=== PATIENT | male | born 1945 | race Caucasian/White ===

== ENCOUNTER → 2020-07-06 15:18 | Outpatient (BNVA) | payer MEDICARE, SELFPAY | PROVIDERS: Visit Provider Nurse Practitioner | DX: K59.04 Chronic idiopathic constipation (principal); K75.81 Nonalcoholic steatohepatitis (NASH); K80.20 Calculus of gallbladder without cholecystitis without obstruction; K21.9 Gastro-esophageal reflux disease without esophagitis; L98.9 Disorder of the skin and subcutaneous tissue, unspecified; Z79.899 Other long term (current) drug therapy; Z80.0 Family history of malignant neoplasm of digestive organs | CPT/HCPCS: 99214 ==

== ENCOUNTER 2020-07-08 09:27 | Outpatient (REF) | payer MEDICARE, SELFPAY ==
[2020-07-08 10:22] LABS: Alanine Aminotransferase 11 U/L (0-40); Albumin Level 4.1 g/dL (3.5-5.0); Alkaline Phosphatase 95 U/L (39-117); Aspartate Amino Transferase 10 U/L (5-37); Bilirubin Direct 0.3 mg/dL (0.0-0.5); Bilirubin Total 0.7 mg/dL (0.0-1.0); Total Protein 7.9 g/dL (6.5-8.0)
[2020-07-12 11:37] LABS: Alpha Fetoprotein 2.8 ng/mL (<6.1)
== END 2020-07-08 09:28 | disposition home or self-care (01) ==
LOC: HO.LAB 09:27
PROVIDERS: Visit Provider Nurse Practitioner
DX: K75.81 Nonalcoholic steatohepatitis (NASH) (principal)
CPT/HCPCS: 80076; 82105

== ENCOUNTER 2020-07-19 12:23 | Outpatient (REF) | payer MEDICARE, SELFPAY ==
--- NOTE | 2020-07-19 12:31 | US_ITS ---
EXAMINATION: US ABDOMEN LIMITED CLINICAL INFORMATION: Nonalcoholic steatohepatitis. COMPARISON: Ultrasound abdomen complete dated 07/23/2019 and 02/19/2018. CT abdomen and pelvis with intravenous contrast only dated 10/28/2015. TECHNIQUE: Real-time imaging of the right upper quadrant abdominal viscera. FINDINGS: PANCREAS: The head and the body of the pancreas has homogeneous echotexture. The tail is obscured by overlying gas. LIVER: There is echogenic calcification along the right hepatic lobe at the dome measuring 1.2 x 0.8 x 1.3 cm. It was not well appreciated on previous study. The liver is normal in size. The liver contour is normal. Parenchymal echogenicity is coarse and echogenic. There is no intrahepatic biliary duct dilatation seen. GALLBLADDER: There are echogenic gallstones and gravel with mild wall thickening. The gallbladder is physiologically distended without evidence of polyps, wall thickening or pericholecystic fluid. Suspect mild adenomyomatosis along the inner gallbladder wall. COMMON BILE DUCT: Normal in caliber measuring 1.0 cm in diameter. RIGHT KIDNEY: There is anechoic cyst in mid/lower pole measuring 1.4 x 1.4 x 1.3 cm. No hydronephrosis or echogenic renal calculi seen. There is no hydronephrosis or caliectasis. The kidney measures 15.5 cm in maximum dimension. FREE FLUID: None. IMPRESSION: Coarse echogenic liver with focal calcification along the right hepatic lobe at the dome, new since the previous study. Echogenic gravel and small stones in gallbladder with mild wall thickening. Suspect adenomyomatosis of the gallbladder. Small anechoic cyst mid/lower pole right kidney measuring 1.4 cm.
== END 2020-07-19 12:24 | disposition home or self-care (01) ==
LOC: HO.US 12:23
PROVIDERS: Visit Provider Nurse Practitioner
DX: K75.81 Nonalcoholic steatohepatitis (NASH) (principal); G47.33 Obstructive sleep apnea (adult) (pediatric); J30.9 Allergic rhinitis, unspecified; R91.1 Solitary pulmonary nodule; Z99.89 Dependence on other enabling machines and devices
CPT/HCPCS: 76705; 99213

== ENCOUNTER 2020-07-28 13:38 | Outpatient (REF) | payer MEDICARE, SELFPAY ==
--- NOTE | 2020-07-28 13:30 | CT_ITS ---
EXAMINATION: CT CHEST WITHOUT CONTRAST CLINICAL INFORMATION: Pulmonary nodule. COMPARISON: None TECHNIQUE: Multidetector volumetric CT imaging of the chest was done. Axial MIP volume rendering provided. Sagittal and coronal reformatted images were obtained. This CT examination was performed using dose optimization techniques as appropriate, variously including the following: *Automated exposure control. *Adjustment of mA and/or kV according to patient size (this includes techniques or standardized protocols for targeted exams where dose is matched to indication/reason for exam; i.e. extremities or head). *Use of iterative reconstruction technique. DLP: 241 mGy-cm FINDINGS: SERVICE SECRETARY: Well-inflated lungs. LUNGS: Previously visualized largest 1 cm nodule left lung base is not visualized at this time and likely resolved. Previously seen right middle lobe nodule has resolved. A second nodule since measuring 6 cm on axial image 354/7 is stable. There are small calcified granulomas in left lower lobe on axial image 354 and 348/7, triangular-shaped 5 mm nodule at the left lung apex image 128/7, previously measured 4 mm, 3 mm nodule right upper lobe image 187/7, 2 nodule perivascular image 177/7 right upper lobe, 4 mm peribronchiolar nodule right upper lobe image 242/7 is new. There is tree-in-bud appearance and focal terminal bronchiolar dilation in the right upper lobe inferior segment, new since previous study, likely related to small airway disease. There is extensive lower lobe honeycombing and traction bronchiectasis likely representing chronic airway disease. Similar findings are seen in the dependent portion of the lingula and right middle lobe lateral segment. MEDIASTINUM: The thyroid lobes are symmetrical. The central trachea and the bronchi are widely patent. There are small pretracheal lymph nodes. A prominent subcarinal lymph node measures 1.5 x 1.1 cm. There are coronary artery calcifications present. No pericardial effusion seen. PLEURA: There is no pleural effusion. No pleural mass or thickening. AXILLA: No lymphadenopathy. UPPER ABDOMEN: Visualized liver, spleen, pancreas and bilateral adrenal glands are unremarkable. OSSEOUS STRUCTURES: There is moderate spondylosis throughout the dorsal spine. No lytic process seen. CT/CT chest wo con IMPRESSION: 1. Previously seen overlying pleural-based nodule in the left lower lobe is normal visualized. Chronic bibasilar parenchymal scarring and traction bronchiectasis are stable. Similar findings to a lesser extent involving the dependent portion of right middle lobe and lingula are stable. 2. There is tree-in-bud appearance and focal terminal bronchiolar dilatation, appears slightly progressed. 3. There are several pulmonary nodules some of which were present before and some are new. Especially, the 4 mm peribronchiolar nodule in the right upper lobe is new. 4. There is borderline subcarinal lymph node, new.
== END 2020-07-28 13:39 | disposition home or self-care (01) ==
LOC: HO.CT 13:38
PROVIDERS: Visit Provider Internal Medicine
DX: R91.1 Solitary pulmonary nodule (principal)
CPT/HCPCS: 71250

== ENCOUNTER 2020-08-02 15:00 | Outpatient (REF) | payer MEDICARE, SELFPAY ==
--- NOTE | 2020-08-02 11:06 | PFT_ITS ---
FLOWS: FEV1 84% of predicted at 2.30 L. FVC 75% of predicted at 2.85 L. FEV1 to FVC ratio of 0.81. No bronchodilator response. LUNG VOLUMES: Total lung capacity 79% of predicted at 5.12 L. Residual volume 88% of predicted at 2.11 L. Slow vital capacity 74% of predicted at 3.01 L. Expiratory reserve volume 33% of predicted at 0.34 L. Diffusion capacity is mildly decreased, diffusion capacity corrects to normal after adjustment for alveolar ventilation. IMPRESSION: Mild restrictive ventilatory defect with no bronchodilator response. Decreased expiratory reserve volume suggests extrathoracic restriction likely secondary to abdominal obesity. MD WOLFGANG Carlos/MODL / [id number]
== END 2020-08-02 15:01 | disposition home or self-care (01) ==
LOC: HO.RESP 15:00
PROVIDERS: Visit Provider Internal Medicine
DX: J44.9 Chronic obstructive pulmonary disease, unspecified (principal)
CPT/HCPCS: 94060; 94727; 94729

== ENCOUNTER → 2020-08-24 07:16 | Outpatient (REF) | payer MEDICARE, SELFPAY ==
--- NOTE | 2020-08-24 07:30 | CA_ITS ---
Transthoracic Echocardiogram Patient (Last, First, Middle): Junior Reyes G Gender: Male Date of : 1945 Age: 75 Procedure Date: 08/24/2020 Procedure Type: Transthoracic Echocardiogram Location: OP Height: 167.64 cm Weight: 98.88 kg BSA: 2.07 m2 Heart Rate: bpm BP: 140 / 72 mmHg Can Pusher: PATRICA Wang MD: Gerardo Smith MD Canary Breeder: Hector Sy MD Symptoms: HTN,OBESITY, PREOP, Study Quality: Fair ECG Rhythm: Sinus Conclusions: - 1. Normal LV systolic function with mild LVH with impaired relaxation filling pattern 2. Mildly dilated left atrium 3. Trace to mild aortic regurgitation 4. Normal RV systolic pressure 5. Mildly dilated ascending aorta at 4.3 cm 6. No pericardial effusion Findings Left Ventricle Normal left ventricular size and systolic function. There is mildly increased left ventricular wall thickness. The visually estimated ejection fraction is between 60-65%. Spectral Doppler is indicative of an impaired relaxation filling pattern. E/E prime ratio is between 8 and 15 consistent with indeterminate filling pressures. Right Ventricle Normal right ventricular cavity size and systolic function. Atria The left atrium is mildly dilated. Interatrial shunt cannot be excluded. The right atrium is normal in size. Aortic Valve Normal aortic valve structure and function. There is no aortic valve stenosis. There is mild aortic valve regurgitation. Mitral Valve Normal mitral valve structure and function. There is no mitral valve regurgitation. There is no mitral valve stenosis. Pulmonic Valve The pulmonic valve is likely normal. There is trace pulmonic valve regurgitation. Tricuspid Valve Normal tricuspid valve structure. There is trace tricuspid valve regurgitation. The right ventricular systolic pressure is normal. The right ventricular systolic pressure is 27 mmHg. Normal right atrial pressure. There is no evidence of pulmonary hypertension. Great Vessels The pulmonary artery was not well visualized. There is mild dilatation of the ascending aorta measuring 4.30 cm. Venous The inferior vena cava is normal in size and collapses greater than 50% with inspiration. Pericardium/Pleural There is no evidence of pericardial effusion. Prior Study Comparison No prior study available for comparison. Measurements 2D Linear Measurements RVIDd: 3.87 RVIDd Index: 1.87 IVSd: 1.26 0.6-0.9/0.6-1.0 cm LVIDd: 5.24 3.9-5.3/4.2-5.9 cm LVIDd Index: 2.53 2.4-3.2/2.2-3.1 cm/m2 LVIDs: 3.59 2.0-3.6 cm LVPWd: 1.19 0.7-1.1 cm Ao Root: 4.40 2.1-3.5 cm LA Diam: 4.00 2.7-3.8/3.0-4.0 cm LAIDs Index: 1.93 1.5-2.3 cm/m2 LV Mass: 323.31 67-162/88-224 g LV Mass Index: 156.19 43-95/49-115 g/m2 LVOT Diam: 2.20 3.0+(-)1.3 cm 2D Systolic Function EF 4C: 59.00 >55% EF 2C: 64.00 >55% EF BiP: 61.30 >55% Mitral Valve MV Pk E: 0.57 MV PK A: 0.83 MV Decel Time: 318.00 E/A: 0.70 E'Lateral: 6.64 E'Medial: 4.24 E/E' Med: 13.40 E/E' Lat: 8.60 Aortic Valve AoV Pk Luciano: 1.39 AoV Mn Luciano: 1.07 AoV VTI: 0.29 AoV Pk Grad: 8.00 Aov Mn Grad: 5.00 BINA Cont.VTI: 2.97 LVOT LVOT Pk Luciano: 1.20 LVOT Mn Luciano: 0.71 LVOT VTI: 0.23 LVOT Pk Grad: 6.00 LVOT Mn Grad: 2.00 LVOT Diam: 2.20 LVOT Area: 3.80 Diastolic Function MV Pk E: 0.57 MV Pk A: 0.83 E/A: 0.70 E'Medial: 4.24 E/E' Med: 13.40 E' Laterial: 6.64 E/E' Lat: 8.60 Tricuspid Valve TR Pk Luciano: 2.43 TR Pk Grad: 24.00 RA Press: 3.00 RVSP: 27.00 Great Vessels Aorta Ao Root-2D: 4.40 2.0-3.7 cm Ao Asc: 4.30 2.1-3.4 cm Ao Arch: 3.20 Updated in Other Vendor System with Status of Final Hector Sy MD electronically signed on 08/24/2020 1:06:02 PM with status of Final
== END ==
LOC: HO.CARD 07:16
DX: I10 Essential (primary) hypertension (principal); E66.9 Obesity, unspecified; J44.9 Chronic obstructive pulmonary disease, unspecified
CPT/HCPCS: 93306

== ENCOUNTER 2020-08-25 00:54 | Emergency (ER) | payer MEDICARE, SELFPAY ==
[2020-08-25 01:05] VITALS: BP 167/90; PULSE 70; RESP 16; TEMP 36.8; O2SAT 97; BMI 34.9
--- NOTE | 2020-08-25 01:11 | XR_ITS ---
EXAMINATION: XR CHEST CLINICAL INFORMATION: Chest pain COMPARISON: 02/26/2017 TECHNIQUE: Frontal view of the chest was obtained. FINDINGS: The lungs are well expanded. There is no focal consolidation, edema, or effusion. Bronchial wall thickening noted. No pneumothorax. The cardiomediastinal silhouette is within normal limits. No acute osseous abnormality. Degenerative changes at the shoulders. XR/XR chest 1V IMPRESSION: No consolidation. Bronchial wall thickening can be seen with a small airways process such as asthma or atypical/viral infection.
--- NOTE | 2020-08-25 01:11 | ECG_ITS ---
Test Reason : PALPITATIONS Blood Pressure : / mmHG Vent. Rate : 062 BPM Atrial Rate : 062 BPM P-R Int : 222 ms QRS Dur : 118 ms QT Int : 468 ms P-R-T Axes : 039 -06 007 degrees QTc Int : 475 ms Sinus rhythm with 1st degree A-V block Non-specific intra-ventricular conduction delay Borderline ECG When compared with ECG of 09-SEP-2018 21:06, No significant change was found Heart rate has increased Referred By: Thai Nava Electronically Signed By:THELMA VARELA MD
--- NOTE | 2020-08-25 01:24 | ED.ARRPALP ---
HPI - Arrhythmia/Palpitations General Chief Complaint: Arrhythmia/Palpitations Stated Complaint: A-fib/Palpitations Time Seen by Provider: 08/25/20 01:01 Source: patient Mode of arrival: ambulatory History of Present Illness HPI narrative: 75-year-old male states approximately 7 hours of intermittent rapid heart rate states about 7 hours ago had slight pressure in his chest however that has relieved. The dizziness denies syncope or diaphoresis. Patient states forget to take his metoprolol or amiodarone in the morning and when remembered he noticed his heart rate was elevated. Patient then proceeded to take his medications about 7 hours ago in which feels much better now he is emergency department MD complaint: heart racing Onset (ago): hour(s) (Seven) Severity: mild Related Data Home Medications Medication Instructions Recorded Confirmed amiodarone 200 mg tablet mg PO DAILY tab 06/28/20 07/06/20 amlodipine 5 mg tablet 5 mg PO DAILY 06/28/20 07/06/20 chlorthalidone 25 mg tablet 12.5 mg PO DAILY tab 06/28/20 07/06/20 fluticasone 250 mcg-salmeterol 50 1 inh INHALATION BID ea 06/28/20 07/06/20 mcg/dose blistr powdr for inhalation metoprolol succinate 25 mg 25 mg PO DAILY 06/28/20 07/06/20 tablet,extended release 24 hr pantoprazole 40 mg tablet,delayed mg PO BID tab 06/28/20 07/06/20 release rosuvastatin 5 mg tablet 5 mg PO DAILY 06/28/20 07/06/20 sildenafil 100 mg tablet mg PO PRN 06/28/20 07/06/20 tamsulosin 0.4 mg capsule 0.4 mg PO DAILY 06/28/20 07/06/20 trazodone 50 mg tablet 50 mg PO BEDTIME 06/28/20 07/06/20 loratadine 10 mg tablet 10 mg PO DAILY 07/06/20 07/06/20 albuterol sulfate 2.5 mg INHALATION Q4-6H PRN 07/19/20 aspirin 81 mg tablet,delayed 81 mg PO DAILY 07/19/20 release Previous Rx's Medication Instructions Recorded bisacodyl 5 mg tablet,delayed 10 mg PO BEDTIME 2 Days #4 tab 07/06/20 release docusate calcium 240 mg capsule 240 mg PO BEDTIME #60 cap 07/06/20 montelukast 10 mg tablet 10 mg PO DAILY #30 tab 08/24/20 azithromycin 500 mg PO DAILY 3 Days #3 tab 08/25/20 Allergies Allergy/AdvReac Type Severity Reaction Status Date / Time cefepime Allergy Intermediate RASH/BLISTERS, Verified 08/25/20 01:05 rash metronidazole [From FLAGYL] Allergy Intermediate Rash Verified 08/25/20 01:05 Review of Systems Review of Systems: Constitutional : No Weight loss, No Fever, No Chills, No Night Sweats, No Fatigue, No Malaise ENT/Mouth : No Hearing loss, No Ear Pain, No Nasal Congestion, No Sinus Pain, No Hoarseness, No sore throat, No Rhinorrhea, No Swallowing Difficulty Eyes: No Eye Pain, No Swelling, No Redness, No Foreign Body, No Discharge, No Vision Changes Cardiovascular : Positive Chest Pain, No SOB, No Dyspnea on Exertion, No Orthopnea, No Edema, positive Palpitations Respiratory : No Cough, No Sputum, No Wheezing, No Smoke Exposure, No Dyspnea Gastrointestinal : No Nausea, No Vomiting, No Diarrhea, No Constipation, No abdominal Pain, No Hematochezia, No Melena Genitourinary : no irregular bleeding, No Dysuria, No Urinary Frequency, No Hematuria, No Urinary Incontinence, No Urgency, No Flank Pain, No Urinary Flow Changes, No Hesitancy Musculoskeletal : No joint pain, No Myalgias, No Joint Swelling Skin : No Skin Lesions, No rash Neuro : No Weakness, No Numbness, No Paresthesias, No Loss of Consciousness, No Dizziness, No Headache Psych : No Anxiety/Panic, No Depression, No SI/HI/AH/VH, No Social Issues, Heme/Lymph: No Bruising, No Bleeding,No Lymphadenopathy Endocrine : No Polyuria, No Polydipsia, No Temperature Intolerance [facility] Past Medical History Medical History Allergic rhinitis COPD (chronic obstructive pulmonary disease) ABBY on CPAP Pneumonia Pulmonary nodule Surgical History H/O colonoscopy H/O tympanostomy History of esophagogastroduodenoscopy (EGD) History of parathyroidectomy S/P skin biopsy Family History Family History Father DONNA (non-insulin dependent diabetes mellitus in young) Prostate cancer HTN (hypertension), benign Mother Bone cancer Breast cancer Maternal Grandmother CAD (coronary artery disease) Brother Rectal cancer Social History Social History Alcohol intake: never Smoking Status: Former smoker Years Smoked: QUIT 20 YEARS AGO Advance Directives: No Physical Exam Vital Signs: Vital Signs: Last Vital Signs Temp 98.6 F 08/25/20 02:00 Pulse 60 08/25/20 02:00 Resp 18 08/25/20 02:00 BP 137/73 08/25/20 02:00 Pulse Ox 96 08/25/20 02:00 Body Mass Index 34.9 Vital signs reviewed Appearance: Alert. Oriented X3. No acute distress. Eyes: Pupils equal, round and reactive to light. ENT: Pharynx normal. Neck: Normal inspection. Neck supple. No lymph nodes noted. No crepitus CVS: Normal heart rate and rhythm. Pulses normal. Normal S1 and S2 Respiratory: No respiratory distress. Breath sounds normal. No Wheezing. No rales Abdomen: Soft and nontender. No rigidity. No distention. good BS x4 Skin: Skin warm and dry. Normal skin color. Normal skin turgor. Extremities: No lower extremity edema. Neurovascular intact to all extremities. No Lacerations. No Rash Neuro: Oriented X 3. No motor deficit. No sensory deficit. Moving all extermities. No slurred speech. Course Course Course Narrative: Re-evaluation on patient at 0 3 a.m. patient much improved no palpitations epic [facility] specialists without any ectopy MDM - Arrhythmia/Palpitations MDM Narrative Medical decision making narrative: 75-year-old male that complaint of tachycardia. Patient did miss a dose of his medications and he later in the day which upon arrival to emergency department noted his tachycardia resolved. X-ray shows mild inflammation with a slightly elevated white count will start on bronchitis medication patient aware of reasons to return to the emergency department Differential Diagnosis Differential diagnosis: Likely palpitations, artial fibrillation, artial flutter and supraventricular tachycardia Medical Records Attestation: I reviewed the patient's medical records. Medical records narrative: History shows that patient is on amiodarone 200 mg seen by summer counselor Dr. khiak Lab Data Attestation: I reviewed the patient's lab results. Result diagrams: 08/25/20 01:15 08/25/20 01:15 Labs: Lab Results 08/25/20 08/25/20 08/25/20 Range/Units 01:15 01:15 01:15 WBC 16.5 H (4.8-10.8) X10*3/uL RBC 5.25 (4.60-5.80) X10*6/uL Hgb 16.2 (14.0-18.0) g/dl Hct 48.9 (42-52) % MCV 93.1 (80-98) fL MCH 30.9 (27.0-33.0) pg MCHC 33.1 (31.0-36.0) g/dl RDW 13.4 (11.0-16.0) % Plt Count 312 (160-400) X10*3/uL MPV 9.8 (9.4-12.4) fL Immature Gran % (Auto) 0.2 (0.0-0.4) % Neut % (Auto) 75.5 H (45-73) % Lymph % (Auto) 14.6 L (20-40) % Citrus % (Auto) 8.5 (2-11) % Eos % (Auto) 1.0 (0-4) % Baso % (Auto) 0.2 (0-2) % Lymph # (Auto) 2.4 (1.2-4.9) X10*3/uL Citrus # (Auto) 1.4 H (0.1-1.2) X10*3/uL Eos # (Auto) 0.2 (0.0-0.4) X10*3/uL Baso # (Auto) 0.0 (0.0-0.2) X10*3/uL Abs Immat Gran (auto) 0.04 H (0.00-0.03) X10*3/uL Absolute Neuts (auto) 12.4 H (2.0-8.3) X10*3/uL Absolute Nucleated RBC 0.000 (0.0-0.012) X10*3/uL Nucleated RBC % (auto) 0.0 (0.0-0.2) /100WBC Sodium 139 (135-145) mmol/L Potassium 4.2 (3.3-5.1) mmol/l Chloride 101 (96-108) mmol/L Carbon Dioxide 27 (22-29) mmol/L Anion Gap 15 (12-20) BUN 16 (9-16) mg/dL Creatinine 1.00 (0.5-1.4) mg/dL Estim Creat Clear Calc 73.4 Estimated GFR > 60 Random Glucose 129 H (60-115) mg/dL Calcium 9.2 (8.4-10.2) mg/dL Magnesium 1.8 (1.6-2.6) mg/dL Troponin I High Sens 3.5 (<3.5-35.0) ng/L ECG Data Attestation: I personally reviewed and interpreted this ECG as follows: Interpretation: 62 beats per minute. Normal sinus rhythm. First-degree AV block. Rights sided axis no ST-T changes Discharge Plan Discharge Clinical Impression: Tachycardia, Bronchitis Patient Disposition: Home, Self-Care Instructions: Acute Bronchitis (ED) Additional Instructions: Thank you for visiting the emergency department today. If your symptoms worsen or do not resolve completely please return to the emergency department immediately or call 911. If you have any questions please call your primary care physician Prescriptions: New azithromycin 500 mg tablet 500 mg PO DAILY 3 Days Qty: 3 RF: 0 No Action montelukast 10 mg tablet 10 mg PO DAILY Qty: 30 RF: 3 loratadine [Claritin] 10 mg tablet 10 mg PO DAILY RF: 0 docusate calcium 240 mg capsule 240 mg PO BEDTIME Qty: 60 RF: 3 bisacodyl [Dulcolax (bisacodyl)] 5 mg tablet,delayed release (DR/EC) 10 mg PO BEDTIME 2 Days Qty: 4 RF: 3 metoprolol succinate 25 mg tablet extended release 24 hr 25 mg PO DAILY RF: 0 chlorthalidone 25 mg tablet 12.5 mg PO DAILY RF: 0 amlodipine 5 mg tablet 5 mg PO DAILY RF: 0 rosuvastatin 5 mg tablet 5 mg PO DAILY RF: 0 pantoprazole 40 mg tablet,delayed release (DR/EC) PO BID RF: 0 sildenafil 100 mg tablet PO PRN (Reason: sexual activity) RF: 0 fluticasone propion-salmeterol 250-50 mcg/dose blister with device 1 inh inhalation BID RF: 0 tamsulosin 0.4 mg capsule 0.4 mg PO DAILY RF: 0 trazodone 50 mg tablet 50 mg PO BEDTIME RF: 0 amiodarone 200 mg tablet PO DAILY RF: 0 aspirin 81 mg tablet,delayed release (DR/EC) 81 mg PO DAILY RF: 0 albuterol sulfate 2.5 mg /3 mL (0.083 %) solution for nebulization 2.5 mg inhalation Q4-6H PRNRF: 0 Referrals: [facility] [Provider Group] - 2 days
[2020-08-25] MEDS: 0.9 % Sodium Chloride 500 ML IV (01:25)
[2020-08-25 01:26] VITALS: PULSE 63
[2020-08-25 01:33] LABS: Basophils Percent Auto 0.2 % (0-2); Eosinophils Absolute Auto 0.2 X10*3/uL (0.0-0.4); Hematocrit 48.9 % (42-52); Hemoglobin 16.2 g/dl (14.0-18.0); Imm Gran Abs Auto 0.04 X10*3/uL (0.00-0.03); Imm Gran Pct Auto 0.2 % (0.0-0.4); Lymphocytes Absolute Auto 2.4 X10*3/uL (1.2-4.9); Lymphocytes Percent Auto 14.6 % (20-40); MANUAL DIFF FLAG NO; Mean Corpuscular HGB Conc 33.1 g/dl (31.0-36.0); Mean Corpuscular Hemoglobin 30.9 pg (27.0-33.0); Mean Corpuscular Volume 93.1 fL (80-98); Mean Platelet Volume 9.8 fL (9.4-12.4); Monocytes Absolute Auto 1.4 X10*3/uL (0.1-1.2); Monocytes Percent Auto 8.5 % (2-11); Neutrophils Absolute Auto 12.4 X10*3/uL (2.0-8.3); Neutrophils Percent Auto 75.5 % (45-73); Platelet Count 312 X10*3/uL (160-400); Red Blood Count 5.25 X10*6/uL (4.60-5.80); Red Cell Distribution Width 13.4 % (11.0-16.0); White Blood Count 16.5 X10*3/uL (4.8-10.8)
[2020-08-25 02:00] VITALS: BP 137/73; PULSE 60; RESP 18; TEMP 37; O2SAT 96
[2020-08-25 02:11] LABS: Troponin-I High Sensitivity 3.5 ng/L (<3.5-35.0)
[2020-08-25 02:24] LABS: Anion Gap 15 (12-20); Blood Urea Nitrogen 16 mg/dL (9-16); Calcium 9.2 mg/dL (8.4-10.2); Carbon Dioxide 27 mmol/L (22-29); Chloride 101 mmol/L (96-108); Creatinine Clr Calc Pharmacy 73.4; Estimated Glomerular Filt Rate > 60; Glucose Random 129 mg/dL (60-115); Magnesium 1.8 mg/dL (1.6-2.6); Potassium 4.2 mmol/l (3.3-5.1); Sodium 139 mmol/L (135-145)
[2020-08-25 03:25] VITALS: BP 150/75; PULSE 57; RESP 15; TEMP 36.6; O2SAT 95
[2020-08-25] MEDS: Azithromycin 500 MG TABLET PO (03:27)
== END 2020-08-25 03:27 | disposition home or self-care (01) ==
PROVIDERS: Emergency Provider Emergency Medicine
DX: R00.2 Palpitations (principal); R00.0 Tachycardia, unspecified; J20.8 Acute bronchitis due to other specified organisms; Z79.899 Other long term (current) drug therapy; Z87.891 Personal history of nicotine dependence
CPT/HCPCS: 36415; 71045; 80048; 83735; 84484; 85025; 93005; 96360; 99284; 99285

== ENCOUNTER → 2020-09-05 14:54 | Outpatient (BNVA) | payer MEDICARE, SELFPAY | PROVIDERS: Visit Provider Internal Medicine Cardiovascular Disease | DX: Z01.810 Encounter for preprocedural cardiovascular examination (principal); I48.91 Unspecified atrial fibrillation; I10 Essential (primary) hypertension | CPT/HCPCS: 99202 ==

== ENCOUNTER → 2020-09-29 13:08 | Outpatient (REF) | payer MEDICARE, SELFPAY ==
--- NOTE | 2020-09-29 13:12 | HM_ITS ---
TEST PERFORMED: Cardiac event monitor. REQUESTING PHYSICIAN: Dr. Olivares. INDICATIONS: Atrial fibrillation. ENROLLMENT PERIOD: 09/29/2020 to 10/29/2020 - 30 days. FINDINGS: In the above monitoring, the underlying rhythm was sinus with rates from 47 to 88 beats per minute. There are occasional atrial ectopy and ventricular ectopy noted. Very short runs of atrial ectopy. No sustained arrhythmias. There is also evidence of nonspecific intraventricular conduction defect.. There are various instances of patient activation without any symptoms. During some of these times, atrial ectopy is noted. Otherwise during documentation of symptoms of chest pain, shortness of breath, underlying rhythm still seems to be sinus only. CONCLUSION: Study shows sinus rhythm, PACs, brief atrial runs and rare PVC. IVCD noted. Juan Carlos Gomez MD HS/MODL / [id number] MTDD
== END ==
LOC: HO.CARD 13:08
PROVIDERS: Visit Provider Internal Medicine Cardiovascular Disease
DX: I48.91 Unspecified atrial fibrillation (principal)
CPT/HCPCS: 93270

== ENCOUNTER → 2020-11-21 10:48 | Outpatient (BNVA) | payer MEDICARE, SELFPAY | PROVIDERS: Visit Provider Internal Medicine Cardiovascular Disease | DX: I48.0 Paroxysmal atrial fibrillation (principal); I10 Essential (primary) hypertension | CPT/HCPCS: 99212 ==

== ENCOUNTER 2020-12-01 08:25 | Outpatient (REF) | payer MEDICARE, SELFPAY ==
[2020-12-01 09:23] LABS: Glucose Urine UA NEG (NEG); Leukocyte Esterase Urine NEG (NEG); MANUAL DIFF FLAG NO; Nitrite Urine NEG (NEG); Urine Blood NEG (NEG); Urine Ketones NEG (NEG); Urine Protein NEG (NEG-TRACE)
[2020-12-01 09:25] LABS: Appearance Urine CLEAR; Color Urine YELLOW; Renal w Reflex-LAB USE ONLY Order Verified
[2020-12-01 09:31] LABS: Basophils Percent Auto 0.3 % (0-2); Eosinophils Absolute Auto 0.3 X10*3/uL (0.0-0.4); Eosinophils Percent Auto 3.3 % (0-4); Hematocrit 49.9 % (42-52); Hemoglobin 16.6 g/dl (14.0-18.0); Imm Gran Abs Auto 0.02 X10*3/uL (0.00-0.03); Imm Gran Pct Auto 0.2 % (0.0-0.4); Lymphocytes Absolute Auto 2.8 X10*3/uL (1.2-4.9); Lymphocytes Percent Auto 30.6 % (20-40); Mean Corpuscular HGB Conc 33.3 g/dl (31.0-36.0); Mean Corpuscular Volume 93.1 fL (80-98); Mean Platelet Volume 10.2 fL (9.4-12.4); Monocytes Percent Auto 11.4 % (2-11); Neutrophils Absolute Auto 4.9 X10*3/uL (2.0-8.3); Neutrophils Percent Auto 54.2 % (45-73); Platelet Count 321 X10*3/uL (160-400); Red Blood Count 5.36 X10*6/uL (4.60-5.80); Red Cell Distribution Width 13.5 % (11.0-16.0); White Blood Count 9.1 X10*3/uL (4.8-10.8)
[2020-12-01 09:36] LABS: RBC Urine 0 /HPF (0); WBC Urine 0 /HPF (0-4)
[2020-12-01 10:16] LABS: Creatinine Urine 88.47 mg/dL; Microalbum/Creatinine Ratio Ur 20.3 ug/mg cr; Total Protein Urine Random < 7 mg/dL (<12)
[2020-12-01 10:19] LABS: Anion Gap 14 (12-20); Blood Urea Nitrogen 19 mg/dL (9-16); Calcium 10.1 mg/dL (8.4-10.2); Carbon Dioxide 29 mmol/L (22-29); Chloride 101 mmol/L (96-108); Estimated Glomerular Filt Rate > 60; Magnesium 1.8 mg/dL (1.6-2.6); Phosphorus 3.6 mg/dL (2.7-4.5); Potassium 3.9 mmol/L (3.3-5.1); Sodium 140 mmol/L (135-145)
[2020-12-01 10:42] LABS: Vitamin D 25-OH Total 20.3 ng/mL (>30)
[2020-12-01 12:59] LABS: Renal w Reflex Lab Use Only Order verified
== END 2020-12-01 08:26 | disposition home or self-care (01) ==
LOC: HO.LAB 08:25
PROVIDERS: Visit Provider Internal Medicine Nephrology
DX: I12.9 Hypertensive chronic kidney disease with stage 1 through stage 4 chronic kidney disease, or unspecified chronic kidney disease (principal); N18.2 Chronic kidney disease, stage 2 (mild); D69.0 Allergic purpura
CPT/HCPCS: 36415; 80051; 81001; 82040; 82043; 82306; 82310; 82565; 83735; 84100; 84156; 84520; 85025

== ENCOUNTER → 2021-01-02 13:03 | Outpatient (BNVA) | payer MEDICARE, SELFPAY | PROVIDERS: PCP Internal Medicine; Visit Provider Nurse Practitioner | DX: Z13.89 Encounter for screening for other disorder (principal) | CPT/HCPCS: Q3014 ==

== ENCOUNTER 2021-01-05 12:22 | Outpatient (REF) | payer MEDICARE, SELFPAY ==
[2021-01-05 13:34] LABS: Alanine Aminotransferase 17 U/L (0-40); Albumin Level 4.2 g/dL (3.5-5.0); Alkaline Phosphatase 108 U/L (39-117); Aspartate Amino Transferase 14 U/L (5-37); Bilirubin Direct 0.3 mg/dL (0.0-0.5); Bilirubin Total 0.6 mg/dL (0.0-1.0); Blood Urea Nitrogen 20 mg/dL (9-16); Estimated Glomerular Filt Rate > 60
[2021-01-06 12:16] LABS: Alpha Fetoprotein 3.3 ng/mL (<6.1)
== END 2021-01-05 12:23 | disposition home or self-care (01) ==
LOC: HO.LAB 12:22
PROVIDERS: PCP Internal Medicine; Visit Provider Nurse Practitioner
DX: K75.81 Nonalcoholic steatohepatitis (NASH) (principal); R10.9 Unspecified abdominal pain
CPT/HCPCS: 36415; 80076; 82105; 82565; 84520

== ENCOUNTER → 2021-01-17 12:59 | Outpatient (BNVA) | payer MEDICARE, SELFPAY | PROVIDERS: PCP Internal Medicine; Visit Provider Internal Medicine | DX: E66.9 Obesity, unspecified (principal); G47.33 Obstructive sleep apnea (adult) (pediatric); J44.9 Chronic obstructive pulmonary disease, unspecified; J30.9 Allergic rhinitis, unspecified; R91.1 Solitary pulmonary nodule; Z99.89 Dependence on other enabling machines and devices | CPT/HCPCS: 99212 ==

== ENCOUNTER → 2021-01-23 10:55 | Outpatient (BNVA) | payer MEDICARE, SELFPAY | PROVIDERS: PCP Internal Medicine; Visit Provider Internal Medicine Cardiovascular Disease | DX: I48.0 Paroxysmal atrial fibrillation (principal); I10 Essential (primary) hypertension | CPT/HCPCS: 93005; 99212 ==

== ENCOUNTER → 2021-02-16 08:50 | Outpatient (BNVA) | payer MEDICARE, SELFPAY | PROVIDERS: PCP Internal Medicine; Visit Provider Nurse Practitioner | DX: K59.04 Chronic idiopathic constipation (principal); R10.9 Unspecified abdominal pain; Z80.0 Family history of malignant neoplasm of digestive organs; K21.9 Gastro-esophageal reflux disease without esophagitis; K75.81 Nonalcoholic steatohepatitis (NASH) | CPT/HCPCS: Q3014 ==

== ENCOUNTER 2021-02-28 14:58 | Outpatient (REF) | payer MEDICARE, SELFPAY ==
[2021-02-28 16:05] LABS: Alanine Aminotransferase 17 U/L (0-40); Alkaline Phosphatase 99 U/L (39-117); Aspartate Amino Transferase 16 U/L (5-37); Bilirubin Direct 0.3 mg/dL (0.0-0.5); Bilirubin Total 0.6 mg/dL (0.0-1.0); Blood Urea Nitrogen 18 mg/dL (9-16); Estimated Glomerular Filt Rate > 60; Total Protein 7.4 g/dL (6.5-8.0)
[2021-03-01 12:02] LABS: Alpha Fetoprotein 3.1 ng/mL (<6.1)
== END 2021-02-28 14:59 | disposition home or self-care (01) ==
LOC: HO.LAB 14:58
PROVIDERS: PCP Internal Medicine; Visit Provider Nurse Practitioner
DX: R10.9 Unspecified abdominal pain (principal); K75.81 Nonalcoholic steatohepatitis (NASH)
CPT/HCPCS: 36415; 80076; 82105; 82565; 84520

== ENCOUNTER 2021-03-02 08:38 | Outpatient (REF) | payer MEDICARE, SELFPAY ==
--- NOTE | ~2021-03-02 | CT_ITS ---
EXAMINATION: CT ABDOMEN AND PELVIS WITHOUT AND WITH CONTRAST CLINICAL INFORMATION: Liver disease COMPARISON: 10/28/2015 TECHNIQUE: Multidetector volumetric imaging was performed of the abdomen and pelvis before and after the IV administration of 100 mL of Omnipaque 350 intravenous contrast. Sagittal and coronal reformatted images were obtained on the technologist's workstation. This CT examination was performed using dose optimization techniques as appropriate, variously including the following: *Automated exposure control *Adjustment of mA and/or kV according to patient size (this includes techniques or standardized protocols for targeted exams where dose is matched to indication/reason for exam; i.e. extremities or head) *Use of iterative reconstruction technique DLP: 2220 mGy-cm FINDINGS: LUNG BASES: Lower lobe bronchiectasis and subpleural fibrosis has progressed. LIVER, GALLBLADDER, AND BILIARY TREE: The liver is normal in size, shape, and attenuation. No focal hepatic lesion or biliary ductal dilatation is present. At least 2 faintly calcified gallstones are noted. PANCREAS: Unremarkable SPLEEN: Unremarkable ADRENAL GLANDS: Unremarkable KIDNEYS AND URETERS: There is a 3.5 cm heterogeneously enhancing mass at the inferior pole of the right kidney anteriorly highly concerning for renal cell carcinoma. There are additional smaller simple appearing cysts in the lower pole of the right kidney and upper pole of the left kidney. Focus of cortical scarring of the left kidney at the midpole. No hydronephrosis. Nephrograms are symmetric. BLADDER: Unremarkable GASTROINTESTINAL TRACT: The small and large bowel are unremarkable. The appendix is unremarkable. ABDOMINAL WALL: Small fat-containing right inguinal hernia. LYMPH NODES: Normal VASCULAR: Scattered atherosclerotic calcifications. PELVIC VISCERA: Unremarkable OSSEOUS STRUCTURES: Severe degenerative disc disease throughout the lumbar spine. CT/CT abdomen pelvis wo/w con IMPRESSION: There is a 3.5 cm enhancing right renal mass concerning for renal cell carcinoma. This critical result was discussed with Dr. Machado at 10:30 AM on 03/03/2021 and it was ascertained that the content and urgency of the report was understood at the time of direct communication. Cholelithiasis. Lower lobe bronchiectasis and subpleural fibrosis.
[2021-03-02] MEDS: iohexoL 350 MG/ML 100 ML INFUS..BTL IV (11:47)
[2021-03-02] MEDS: Barium Sulfate Oral (Mocha) 450 ML ORAL.SUSP 900 ML PO (11:48)
== END 2021-03-02 08:39 | disposition home or self-care (01) ==
LOC: HO.CT 08:38
PROVIDERS: PCP Internal Medicine; Visit Provider Nurse Practitioner
DX: K76.9 Liver disease, unspecified (principal)
CPT/HCPCS: 74178; Q9967

== ENCOUNTER 2021-05-29 12:52 | Outpatient (REF) | payer MEDICARE, SELFPAY ==
[2021-05-29 13:25] VITALS: BMI 35.9
[2021-05-29 13:26] VITALS: BP 152/70; PULSE 50; RESP 16; TEMP 36.6; O2SAT 95
[2021-05-29 14:24] VITALS: BP 142/69; PULSE 52
== END 2021-05-29 12:53 | disposition home or self-care (01) ==
LOC: HO.MS 12:52
PROVIDERS: PCP Internal Medicine; Visit Provider Ophthalmology
PROC: (CPT 67840; principal; 2021-05-29 14:50)
DX: H02.822 Cysts of right lower eyelid (principal); H40.013 Open angle with borderline findings, low risk, bilateral; H52.4 Presbyopia; I10 Essential (primary) hypertension; J44.9 Chronic obstructive pulmonary disease, unspecified; I48.91 Unspecified atrial fibrillation; Z79.899 Other long term (current) drug therapy; Z87.891 Personal history of nicotine dependence; Z79.01 Long term (current) use of anticoagulants
CPT/HCPCS: 67840; 88304

== ENCOUNTER → 2021-06-07 12:52 | Outpatient (BNVA) | payer MEDICARE, SELFPAY | PROVIDERS: PCP Internal Medicine; Referring Provider Internal Medicine; Visit Provider Nurse Practitioner Family | DX: I48.0 Paroxysmal atrial fibrillation (principal); I10 Essential (primary) hypertension; I77.810 Thoracic aortic ectasia; G47.33 Obstructive sleep apnea (adult) (pediatric); E66.9 Obesity, unspecified; Z99.89 Dependence on other enabling machines and devices | CPT/HCPCS: 93005; 99212 ==

== ENCOUNTER 2021-06-08 14:22 | Outpatient (REF) | payer MEDICARE, SELFPAY ==
--- NOTE | ~2021-06-08 | XR_ITS ---
EXAMINATION: XR CHEST CLINICAL INFORMATION: Paroxysmal atrial fibrillation COMPARISON: 08/25/2020 TECHNIQUE: 2 views of the chest were obtained. FINDINGS: Diffuse chronic interstitial prominence. Similar appearance of curvilinear fibrosis at the lateral left lung base. Cardiomediastinal silhouette unchanged. No pleural effusion or pneumothorax. There is flattening of the diaphragms and increased retrosternal clear space consistent with emphysema. XR/XR chest 2V IMPRESSION: No acute pulmonary disease. Similar appearance of chronic findings.
[2021-06-08 16:01] LABS: Anion Gap 14 (12-20); Blood Urea Nitrogen 17 mg/dL (9-16); Calcium 10.1 mg/dL (8.4-10.2); Carbon Dioxide 28 mmol/L (22-29); Chloride 103 mmol/L (96-108); Estimated Glomerular Filt Rate > 60; Glucose Random 131 mg/dL (60-115); Potassium 3.7 mmol/L (3.3-5.1); Sodium 141 mmol/L (135-145)
[2021-06-08 16:12] LABS: TSH reflex Free T4 1.93 uIU/mL (0.32-4.0)
== END 2021-06-08 14:23 | disposition home or self-care (01) ==
LOC: HO.LAB 14:22
PROVIDERS: PCP Internal Medicine; Visit Provider Nurse Practitioner Family
DX: I48.0 Paroxysmal atrial fibrillation (principal); J44.9 Chronic obstructive pulmonary disease, unspecified; I10 Essential (primary) hypertension
CPT/HCPCS: 36415; 71046; 80048; 84443

== ENCOUNTER → 2021-07-20 13:34 | Outpatient (BNVA) | payer MEDICARE, SELFPAY | PROVIDERS: PCP Internal Medicine; Visit Provider Internal Medicine | DX: J44.9 Chronic obstructive pulmonary disease, unspecified (principal); R91.1 Solitary pulmonary nodule; G47.33 Obstructive sleep apnea (adult) (pediatric); E66.9 Obesity, unspecified; Z99.89 Dependence on other enabling machines and devices; Z68.37 Body mass index [BMI] 37.0-37.9, adult | CPT/HCPCS: 99212 ==

== ENCOUNTER → 2021-07-31 14:51 | Outpatient (REF) | payer MEDICARE, SELFPAY ==
--- NOTE | 2021-07-31 14:54 | CA_ITS ---
Transthoracic Echocardiogram Patient (Last, First, Middle): Junior Reyes G Gender: Male Date of : 1945 Age: 76 Procedure Date: 07/31/2021 Procedure Type: Transthoracic Echocardiogram Location: OP Height: 170.18 cm Weight: 107.05 kg BSA: 2.17 m2 Heart Rate: bpm BP: 138 / 80 mmHg Air Brake Mechanic: TOOTIE Referring MD: Linda Cervantes COLLECTION SUPPORT SPECIALIST-C [employer] Repairer: Hector Sy MD Symptoms: I77.810 - Thoracic aortic ectasia Study Quality: Fair ECG Rhythm: Sinus Conclusions: - 1. Normal LV systolic function with mild LVH with impaired relaxation filling pattern 2. Trivial aortic regurgitation 3. Normal RV systolic pressure 4. Moderately dilated ascending aorta at 4.6 cm 5. No pericardial effusion Findings Left Ventricle Normal left ventricular size and systolic function. There is mildly increased left ventricular wall thickness. The visually estimated ejection fraction is between 55-60%. Regional wall motion abnormalities can not be excluded due to suboptimal endocardial definition. Spectral Doppler is indicative of an impaired relaxation filling pattern. E/E prime ratio is between 8 and 15 consistent with indeterminate filling pressures. Right Ventricle Normal right ventricular cavity size and systolic function. Atria The left atrium is normal in size. There is no evidence of interatrial shunt. The right atrium is normal in size. Aortic Valve There is mild calcification of the aortic valve. There is mild thickening of the aortic valve. There is no aortic valve stenosis. There is trace (trivial) aortic valve regurgitation. Mitral Valve There is mild anterior and posterior mitral leaflet thickening. There is trace mitral valve regurgitation. There is no mitral valve stenosis. Pulmonic Valve The pulmonic valve was not well visualized. Tricuspid Valve Normal tricuspid valve structure. The right ventricular systolic pressure is 23 mmHg. Normal right atrial pressure. There is no evidence of pulmonary hypertension. Great Vessels The pulmonary artery was not well visualized. There is moderate dilatation of the ascending aorta measuring 4.60 cm. Venous The inferior vena cava is normal in size and collapses greater than 50% with inspiration. Pericardium/Pleural There is no evidence of pericardial effusion. Prior Study Comparison Changes noted compared to prior study dated: 08/24/2020. Ascending aorta measured at 4.6 cm Measurements 2D Linear Measurements IVSd: 1.24 0.6-0.9/0.6-1.0 cm LVIDd: 3.82 3.9-5.3/4.2-5.9 cm LVIDd Index: 1.76 2.4-3.2/2.2-3.1 cm/m2 LVIDs: 2.49 2.0-3.6 cm LVPWd: 1.37 0.7-1.1 cm Ao Root: 4.20 2.1-3.5 cm LA Diam: 3.00 2.7-3.8/3.0-4.0 cm LAIDs Index: 1.38 1.5-2.3 cm/m2 LV Mass: 218.51 67-162/88-224 g LV Mass Index: 100.70 43-95/49-115 g/m2 LVOT Diam: 2.00 3.0+(-)1.3 cm 2D Systolic Function EF 4C: 53.40 >55% EF 2C: 50.50 >55% EF BiP: 54.30 >55% Mitral Valve MV Pk E: 0.54 MV PK A: 0.95 MV Decel Time: 346.00 E/A: 0.60 E'Lateral: 5.87 E'Medial: 3.81 E/E' Med: 14.30 E/E' Lat: 9.30 PHT: 101.00 MVA PHT: 2.18 Decel [place]: 1.57 Aortic Valve AoV Pk Luciano: 1.42 AoV Mn Luciano: 0.89 AoV VTI: 0.31 AoV Pk Grad: 8.00 Aov Mn Grad: 4.00 BINA Cont.VTI: 2.58 LVOT LVOT Pk Luciano: 1.17 LVOT Mn Luciano: 0.67 LVOT VTI: 0.25 LVOT Pk Grad: 5.00 LVOT Mn Grad: 2.00 LVOT Diam: 2.00 LVOT Area: 3.14 Diastolic Function MV Pk E: 0.54 MV Pk A: 0.95 E/A: 0.60 E'Medial: 3.81 E/E' Med: 14.30 E' Laterial: 5.87 E/E' Lat: 9.30 Tricuspid Valve TR Pk Luciano: 2.26 TR Pk Grad: 20.00 RA Press: 3.00 RVSP: 23.00 Great Vessels Aorta Ao Root-2D: 4.20 2.0-3.7 cm Ao Asc: 4.60 2.1-3.4 cm Pulmonary Valve PV Pk Luciano: 1.05 Peak PV Grad: 4.00 Updated in Other Vendor System with Status of Final Hector Sy MD electronically signed on 07/31/2021 5:58:04 PM with status of Final
== END ==
LOC: HO.CARD 14:51
PROVIDERS: Visit Provider Nurse Practitioner Family
DX: I77.810 Thoracic aortic ectasia (principal); I48.0 Paroxysmal atrial fibrillation
CPT/HCPCS: 93306

== ENCOUNTER → 2021-08-18 08:37 | Outpatient (BNVA) | payer MEDICARE, SELFPAY | PROVIDERS: PCP Internal Medicine; Visit Provider Nurse Practitioner | CPT/HCPCS: Q3014 ==

== ENCOUNTER → 2021-10-23 14:25 | Outpatient (BNVA) | payer MEDICARE, SELFPAY | PROVIDERS: PCP Internal Medicine; Referring Provider Internal Medicine; Visit Provider Internal Medicine Cardiovascular Disease | DX: Z51.81 Encounter for therapeutic drug level monitoring (principal); I48.91 Unspecified atrial fibrillation | CPT/HCPCS: 93005; 99212 ==

== ENCOUNTER → 2022-01-16 13:17 | Outpatient (BNVA) | payer MEDICARE, SELFPAY | PROVIDERS: PCP Internal Medicine; Visit Provider Internal Medicine | DX: J44.9 Chronic obstructive pulmonary disease, unspecified (principal); J30.9 Allergic rhinitis, unspecified; G47.33 Obstructive sleep apnea (adult) (pediatric); E66.9 Obesity, unspecified; Z99.89 Dependence on other enabling machines and devices; Z68.36 Body mass index [BMI] 36.0-36.9, adult | CPT/HCPCS: 99212 ==

== ENCOUNTER 2022-02-16 09:57 | Outpatient (REF) | payer MEDICARE, SELFPAY ==
[2022-02-16 10:56] LABS: MANUAL DIFF FLAG NO
[2022-02-16 11:15] LABS: Basophils Percent Auto 0.2 % (0-2); Eosinophils Absolute Auto 0.2 X10*3/uL (0.0-0.4); Eosinophils Percent Auto 2.3 % (0-4); Hematocrit 47.7 % (42.0-52.0); Hemoglobin 15.8 g/dl (14.0-18.0); Imm Gran Abs Auto 0.04 X10*3/uL (0.00-0.03); Imm Gran Pct Auto 0.4 % (0.0-0.4); Lymphocytes Absolute Auto 2.2 X10*3/uL (1.2-4.9); Lymphocytes Percent Auto 21.7 % (20-40); Mean Corpuscular HGB Conc 33.1 g/dl (31.0-36.0); Mean Corpuscular Hemoglobin 30.6 pg (27.0-33.0); Mean Corpuscular Volume 92.3 fL (80.0-98.0); Mean Platelet Volume 9.5 fL (9.4-12.4); Monocytes Percent Auto 10.2 % (2-11); Neutrophils Absolute Auto 6.5 x10*3/uL (2.0-8.3); Neutrophils Percent Auto 65.2 % (45-73); Platelet Count 316 X10*3/uL (160-400); Red Blood Count 5.17 X10*6/uL (4.60-5.80); Red Cell Distribution Width 13.6 % (11.0-16.0); White Blood Count 9.9 X10*3/uL (4.8-10.8)
[2022-02-16 11:44] LABS: Alanine Aminotransferase 17 U/L (0-40); Alkaline Phosphatase 94 U/L (39-117); Anion Gap 11 (12-20); Aspartate Amino Transferase 15 U/L (5-37); Bilirubin Direct 0.2 mg/dL (0.0-0.5); Bilirubin Total 0.5 mg/dL (0.0-1.0); Blood Urea Nitrogen 18 mg/dL (9-16); Calcium 10.2 mg/dL (8.4-10.2); Carbon Dioxide 28 mmol/L (22-29); Chloride 103 mmol/L (96-108); Estimated Glomerular Filt Rate > 60; Glucose Random 104 mg/dL (60-115); Potassium 4.4 mmol/L (3.3-5.1); Sodium 138 mmol/L (135-145); Total Protein 7.8 g/dL (6.5-8.0)
[2022-02-16 12:04] LABS: TSH reflex Free T4 2.96 uIU/mL (0.32-4.0)
[2022-02-19 13:16] LABS: Alpha Fetoprotein 2.6 ng/mL (<6.1)
== END 2022-02-16 09:58 | disposition home or self-care (01) ==
LOC: HO.LAB 09:57
PROVIDERS: Internal Medicine Cardiovascular Disease; PCP Internal Medicine; Referring Provider Internal Medicine; Visit Provider Nurse Practitioner
DX: K75.81 Nonalcoholic steatohepatitis (NASH) (principal); K21.9 Gastro-esophageal reflux disease without esophagitis; K59.04 Chronic idiopathic constipation
CPT/HCPCS: 36415; 80053; 82105; 82248; 84443; 85025; 99212

== ENCOUNTER → 2022-02-21 14:18 | Outpatient (BNVA) | payer MEDICARE, SELFPAY | PROVIDERS: PCP Internal Medicine; Referring Provider Internal Medicine; Visit Provider Internal Medicine Cardiovascular Disease | DX: R06.00 Dyspnea, unspecified (principal); I48.0 Paroxysmal atrial fibrillation; Z79.899 Other long term (current) drug therapy | CPT/HCPCS: 93005; 99212 ==

== ENCOUNTER → 2022-04-17 14:54 | Outpatient (BNVA) | payer MEDICARE, SELFPAY | PROVIDERS: PCP Internal Medicine; Referring Provider Internal Medicine; Visit Provider Nurse Practitioner Family | DX: R06.00 Dyspnea, unspecified (principal); E66.9 Obesity, unspecified; G47.33 Obstructive sleep apnea (adult) (pediatric); I77.810 Thoracic aortic ectasia; I65.29 Occlusion and stenosis of unspecified carotid artery; I48.0 Paroxysmal atrial fibrillation; Z99.89 Dependence on other enabling machines and devices | CPT/HCPCS: 99212 ==

== ENCOUNTER 2022-04-18 12:57 | Outpatient (REF) | payer MEDICARE, SELFPAY ==
--- NOTE | ~2022-04-18 | US_ITS ---
EXAMINATION: US ABDOMEN LIMITED CLINICAL INFORMATION: SMITH (nonalcoholic steatosis). COMPARISON: CT abdomen and pelvis without and with contrast dated 03/02/2021. TECHNIQUE: Real-time imaging of the right upper quadrant abdominal viscera. FINDINGS: PANCREAS: The tail is obscured by overlying bowel gas. The pancreatic head and body are within normal limits. There is small amount of free fluid around the pancreas. LIVER: There is increased linear parenchymal echogenicity and hepatomegaly. No discrete focal lesion identified. No intrahepatic biliary ductal dilatation. There is a small amount of perihepatic free fluid. GALLBLADDER: Cholelithiasis and sludge with mild gallbladder wall thickening. Small volume of pericholecystic free fluid. Query focal adenomyomatosis in the fundus. Negative Mckenna's sign. COMMON BILE DUCT: Dilated measuring 1.0 cm in diameter. RIGHT KIDNEY: Redemonstration of solid right renal mass concerning for renal cell carcinoma in the lower pole of the kidney. There is a 1.6 cm simple cyst also in the lower pole. No hydronephrosis or renal calculi. The kidney measures 15.2 cm in maximum dimension. FREE FLUID: Small amount. US/US abdomen limited IMPRESSION: Small volume of free fluid around the gallbladder and head of the pancreas could be related with acute cholecystitis or acute pancreatitis, clinical correlation is needed. There is also cholelithiasis and mild gallbladder wall thickening. There is biliary ductal dilatation, nonspecific and stable when compared to the examination from February. If choledocholithiasis is clinically suspected correlation with MRCP is recommended. Redemonstration of a solid lesion in the lower pole the right kidney, concerning for renal cell carcinoma. The report will be called to the ordering clinician by a [facility] Physician Brush Hand.
== END 2022-04-18 12:58 | disposition home or self-care (01) ==
LOC: HO.US 12:57
PROVIDERS: Visit Provider Nurse Practitioner
DX: K75.81 Nonalcoholic steatohepatitis (NASH) (principal)
CPT/HCPCS: 76705

== ENCOUNTER 2022-05-23 08:56 | Outpatient (REF) | payer MEDICARE, SELFPAY ==
[2022-05-23 09:27] LABS: MANUAL DIFF FLAG NO
[2022-05-23 09:39] LABS: Basophils Percent Auto 0.3 % (0-2); Eosinophils Absolute Auto 0.2 X10*3/uL (0.0-0.4); Eosinophils Percent Auto 2.4 % (0-4); Hematocrit 45.9 % (42.0-52.0); Hemoglobin 15.5 g/dl (14.0-18.0); Imm Gran Abs Auto 0.03 X10*3/uL (0.00-0.03); Imm Gran Pct Auto 0.3 % (0.0-0.4); Lymphocytes Absolute Auto 2.3 X10*3/uL (1.2-4.9); Mean Corpuscular HGB Conc 33.8 g/dl (31.0-36.0); Mean Corpuscular Hemoglobin 31.4 pg (27.0-33.0); Mean Corpuscular Volume 92.9 fL (80.0-98.0); Mean Platelet Volume 9.4 fL (9.4-12.4); Monocytes Absolute Auto 0.8 X10*3/uL (0.1-1.2); Monocytes Percent Auto 8.6 % (2-11); Neutrophils Absolute Auto 6.1 x10*3/uL (2.0-8.3); Neutrophils Percent Auto 64.4 % (45-73); Platelet Count 316 X10*3/uL (160-400); Red Blood Count 4.94 X10*6/uL (4.60-5.80); Red Cell Distribution Width 13.6 % (11.0-16.0); White Blood Count 9.4 X10*3/uL (4.8-10.8)
[2022-05-23 10:01] LABS: Anion Gap 15 (12-20); Blood Urea Nitrogen 19 mg/dL (9-16); Carbon Dioxide 29 mmol/L (22-29); Chloride 102 mmol/L (96-108); Estimated Glomerular Filt Rate > 60; Magnesium 1.7 mg/dL (1.6-2.6); Phosphorus 3.7 mg/dL (2.7-4.5); Potassium 4.1 mmol/L (3.3-5.1); Sodium 142 mmol/L (135-145)
[2022-05-23 10:24] LABS: Vitamin D 25-OH Total 29.1 ng/mL (>30)
[2022-05-23 10:55] LABS: Appearance Urine Clear; Color Urine Yellow; Glucose Urine UA Negative (Negative); Leukocyte Esterase Urine Negative (Negative); Nitrite Urine Negative (Negative); PH 5.5 (5.0-8.0); Specific Gravity - Urine 1.015 (1.005-1.025); Urine Blood Negative (Negative); Urine Ketones Negative (Negative); Urine Protein Negative (Neg-Trace)
[2022-05-23 11:00] LABS: Bacteria Urine None Seen (None Seen); Hyaline Casts Urine 0-2 /LPF (0-2); RBC Urine 0-2 /HPF (0-2); Squamous Epithelial Cell Urine 0-2 /HPF (0-2); WBC Urine 0-5 /HPF (0-5)
[2022-05-23 12:31] LABS: Microalbum/Creatinine Ratio Ur 17.3 ug/mg cr; Total Protein Urine Random < 7 mg/dL (<12)
[2022-05-24 16:13] LABS: Calcium (PTHI) 9.9 mg/dL (8.6-10.3); PTHI 57 pg/mL (16-77)
== END 2022-05-23 08:57 | disposition home or self-care (01) ==
LOC: HO.LAB 08:56
PROVIDERS: PCP Internal Medicine; Visit Provider Internal Medicine Nephrology
DX: I12.9 Hypertensive chronic kidney disease with stage 1 through stage 4 chronic kidney disease, or unspecified chronic kidney disease (principal); N18.2 Chronic kidney disease, stage 2 (mild)
CPT/HCPCS: 36415; 80051; 81001; 82040; 82043; 82306; 82310; 82565; 83735; 83970; 84100; 84156; 84520; 85025; 87086

== ENCOUNTER 2022-06-06 10:01 | Outpatient (REF) | payer MEDICARE, SELFPAY ==
--- NOTE | ~2022-06-06 | XR_ITS ---
EXAMINATION: XR CHEST CLINICAL INFORMATION: Long-term drug therapy COMPARISON: Chest x-ray 06/08/2021 TECHNIQUE: Frontal view of the chest was obtained. FINDINGS: Cardiac silhouette is normal in size. The lungs are adequately aerated. Similar diffuse coarsening of the interstitial markings with similar known fibrotic changes of the left lung base. There is no lobar consolidation. No pleural effusion or pneumothorax. XR/XR chest 1V IMPRESSION: Stable chronic findings of the lungs. No acute pulmonary pathology.
== END 2022-06-06 10:02 | disposition home or self-care (01) ==
LOC: HO.XRAY 10:01
PROVIDERS: PCP Internal Medicine; Visit Provider Nurse Practitioner Family
DX: Z79.899 Other long term (current) drug therapy (principal)
CPT/HCPCS: 71045

== ENCOUNTER → 2022-06-07 12:53 | Outpatient (REF) | payer MEDICARE, SELFPAY ==
--- NOTE | ~2022-06-07 | US_ITS ---
EXAMINATION: US EXTRACRANIAL CAROTID DUPLEX, BILATERAL CLINICAL INFORMATION: Carotid stenosis COMPARISON: None TECHNIQUE: Real-time ultrasound and Doppler techniques (integrating B-mode 2-D vascular images, Doppler spectral analysis and color-flow Doppler imaging) were utilized to interrogate the extracranial carotid arteries, the vertebral arteries and proximal subclavian arteries bilaterally. The degree of stenosis is determined by criteria similar to NASCET. FINDINGS: Right Side: 1. There is mild atherosclerotic plaque seen in the bifurcation/proximal ICA region. 2. The common carotid artery PSV proximally is 84.5 cm/s and distally 81.4 cm/s. 3. The proximal internal carotid artery velocities are 64.1 cm/s systolic and 12.7 cm/s diastolic. 4. The proximal external carotid artery PSV is 65.4 cm/s. 5. The vertebral artery shows antegrade flow. 6. The subclavian artery waveforms are normal. Left Side: 1. There is mild atherosclerotic plaque seen in the bifurcation/proximal ICA region. 2. The common carotid artery PSV proximally is 113 cm/s and distally 79.5 cm/s. 3. The proximal internal carotid artery velocities are 54.1 cm/s systolic and 12.2 cm/s diastolic. 4. The proximal external carotid artery PSV is 63.1 cm/s. 5. The vertebral artery shows antegrade flow. 6. The subclavian artery waveforms are normal. US/US carotid duplex BI IMPRESSION: 1. RIGHT: Minimal, non-hemodynamically significant stenosis of the proximal right internal carotid artery corresponding to a 0-49% stenosis by velocity criteria. 2. LEFT: Minimal, non-hemodynamically significant stenosis of the proximal left internal carotid artery corresponding to a 0-49% stenosis by velocity criteria.
--- NOTE | 2022-06-07 12:55 | CA_ITS ---
Transthoracic Echocardiogram Patient (Last, First, Middle): Junior Reyes G Gender: Male Date of : 1945 Age: 77 Procedure Date: 06/07/2022 Procedure Type: Transthoracic Echocardiogram Location: OP Height: 170.18 cm Weight: 104.33 kg BSA: 2.15 m2 Heart Rate: 46 bpm BP: 150 / 80 mmHg Program Director Cable Television: AXEL Wang MD: Linda Cervantes STOREKEEPER HELPER-C Sciences Dean: Hector Sy MD Symptoms: R06.00 - Dyspnea, unspecified Study Quality: Fair ECG Rhythm: Bradycardia Conclusions: - 1. Normal LV systolic function with impaired relaxation filling pattern 2. Trivial aortic regurgitation 3. Normal RV systolic pressure 4. Measured ascending aorta at 4 cm is, could be underestimated on this study consider alternative imaging such as CTA if clinically indicated 5. No gross pericardial effusion Findings Left Ventricle Normal left ventricular size, thickness, and systolic function. The visually estimated ejection fraction is between 55-60%. Spectral Doppler is indicative of an impaired relaxation filling pattern. E/E prime ratio is between 8 and 15 consistent with indeterminate filling pressures. Right Ventricle The right ventricle was not well visualized. There is normal right ventricular systolic function. Atria The left atrium is normal in size. Interatrial shunt cannot be excluded. The right atrium is normal in size. Aortic Valve The aortic valve was not well visualized. There is no aortic valve stenosis. There is trace (trivial) aortic valve regurgitation. Mitral Valve There is mild anterior and posterior mitral leaflet thickening. There is trace mitral valve regurgitation. There is no mitral valve stenosis. Pulmonic Valve The pulmonic valve was not well visualized. Tricuspid Valve Likely normal tricuspid valve structure and function. There is trace tricuspid valve regurgitation. The right ventricular systolic pressure is normal. The right ventricular systolic pressure is 23 mmHg. Normal right atrial pressure. There is no evidence of pulmonary hypertension. Great Vessels The pulmonary artery was not well visualized. measured ascending aorta size of 4 cm which could be under represented on this study Venous The inferior vena cava is normal in size and collapses greater than 50% with inspiration. Pericardium/Pleural There is no evidence of pericardial effusion. Prior Study Comparison No significant change compared to prior study. Measurements 2D Linear Measurements IVSd: 1.15 0.6-0.9/0.6-1.0 cm LVIDd: 5.34 3.9-5.3/4.2-5.9 cm LVIDd Index: 2.48 2.4-3.2/2.2-3.1 cm/m2 LVIDs: 3.93 2.0-3.6 cm LVPWd: 0.95 0.7-1.1 cm LA Diam: 3.30 2.7-3.8/3.0-4.0 cm LAIDs Index: 1.53 1.5-2.3 cm/m2 LV Mass: 270.63 67-162/88-224 g LV Mass Index: 125.87 43-95/49-115 g/m2 LVOT Diam: 2.20 3.0+(-)1.3 cm 2D Systolic Function EF 4C: 57.90 >55% EF 2C: 54.00 >55% EF BiP: 56.10 >55% Mitral Valve MV Pk E: 0.71 MV PK A: 0.96 MV Decel Time: 356.00 E/A: 0.70 E'Lateral: 5.11 E'Medial: 3.37 E/E' Med: 21.00 E/E' Lat: 13.80 PHT: 104.00 MVA PHT: 2.12 Decel [place]: 1.99 Aortic Valve AoV Pk Luciano: 1.44 AoV Mn Luciano: 1.01 AoV VTI: 0.33 AoV Pk Grad: 8.00 Aov Mn Grad: 5.00 BINA Cont.VTI: 3.51 LVOT LVOT Pk Luciano: 1.29 LVOT Mn Luciano: 0.89 LVOT VTI: 0.30 LVOT Pk Grad: 7.00 LVOT Mn Grad: 4.00 LVOT Diam: 2.20 LVOT Area: 3.80 Diastolic Function MV Pk E: 0.71 MV Pk A: 0.96 E/A: 0.70 E'Medial: 3.37 E/E' Med: 21.00 E' Laterial: 5.11 E/E' Lat: 13.80 Right Ventricle TAPSE (mm): 20.90 TVS' Luciano: 13.30 Tricuspid Valve TR Pk Luciano: 2.25 TR Pk Grad: 20.00 RA Press: 3.00 RVSP: 23.00 Great Vessels Aorta Sinus of Valsalva: 3.80 2.0-3.5 cm Ao Asc: 4.00 2.1-3.4 cm Pulmonary Valve PV Pk Luciano: 1.13 Peak PV Grad: 5.00 Updated in Other Vendor System with Status of Final Hector Sy MD electronically signed on 06/07/2022 3:52:07 PM with status of Final
== END ==
LOC: HO.CARD 12:53
PROVIDERS: PCP Internal Medicine Cardiovascular Disease; Visit Provider Nurse Practitioner Family
DX: I77.810 Thoracic aortic ectasia (principal); I65.29 Occlusion and stenosis of unspecified carotid artery; I10 Essential (primary) hypertension; R06.00 Dyspnea, unspecified; E78.00 Pure hypercholesterolemia, unspecified; E66.9 Obesity, unspecified
CPT/HCPCS: 93306; 93880

== ENCOUNTER → 2022-07-17 13:28 | Outpatient (BNVA) | payer MEDICARE, SELFPAY | PROVIDERS: PCP Internal Medicine Cardiovascular Disease; Visit Provider Internal Medicine | DX: J44.9 Chronic obstructive pulmonary disease, unspecified (principal); J30.9 Allergic rhinitis, unspecified; R91.1 Solitary pulmonary nodule; G47.33 Obstructive sleep apnea (adult) (pediatric); Z99.89 Dependence on other enabling machines and devices | CPT/HCPCS: 94010; 99212 ==

== ENCOUNTER 2022-07-26 14:18 | Outpatient (REF) | payer MEDICARE, SELFPAY ==
[2022-07-26 16:40] LABS: Alanine Aminotransferase 16 U/L (0-40); Alkaline Phosphatase 91 U/L (39-117); Aspartate Amino Transferase 17 U/L (5-37); Bilirubin Direct 0.3 mg/dL (0.0-0.5); Bilirubin Total 0.6 mg/dL (0.0-1.0); Total Protein 7.9 g/dL (6.5-8.0)
[2022-07-30 11:56] LABS: NT-proBNP 40 pg/mL
== END 2022-07-26 14:19 | disposition home or self-care (01) ==
LOC: HO.LAB 14:18
PROVIDERS: PCP Internal Medicine Cardiovascular Disease; Referring Provider Internal Medicine Cardiovascular Disease; Visit Provider Internal Medicine Cardiovascular Disease
DX: Z51.81 Encounter for therapeutic drug level monitoring (principal); R06.00 Dyspnea, unspecified; I10 Essential (primary) hypertension; Z79.899 Other long term (current) drug therapy
CPT/HCPCS: 36415; 80076; 83880; 84443; 93005; 99212

== ENCOUNTER → 2022-09-03 13:51 | Outpatient (BNVA) | payer MEDICARE, SELFPAY | PROVIDERS: PCP Internal Medicine; Visit Provider Internal Medicine | DX: J01.90 Acute sinusitis, unspecified (principal); J44.1 Chronic obstructive pulmonary disease with (acute) exacerbation; G47.33 Obstructive sleep apnea (adult) (pediatric); Z99.89 Dependence on other enabling machines and devices | CPT/HCPCS: 99212 ==

== ENCOUNTER → 2023-01-17 13:27 | Outpatient (BNVA) | payer MEDICARE, SELFPAY | PROVIDERS: PCP Internal Medicine; Visit Provider Internal Medicine | DX: J44.9 Chronic obstructive pulmonary disease, unspecified (principal); J30.9 Allergic rhinitis, unspecified; G47.33 Obstructive sleep apnea (adult) (pediatric); E66.9 Obesity, unspecified; Z99.89 Dependence on other enabling machines and devices | CPT/HCPCS: 99212 ==

== ENCOUNTER → 2023-01-24 14:43 | Outpatient (BNVA) | payer MEDICARE, SELFPAY | PROVIDERS: PCP Family Medicine; Referring Provider Internal Medicine; Visit Provider Nurse Practitioner Family | DX: I48.0 Paroxysmal atrial fibrillation (principal); I77.810 Thoracic aortic ectasia; I44.0 Atrioventricular block, first degree; I45.19 Other right bundle-branch block; I65.29 Occlusion and stenosis of unspecified carotid artery; G47.33 Obstructive sleep apnea (adult) (pediatric); Z99.89 Dependence on other enabling machines and devices; Z79.899 Other long term (current) drug therapy | CPT/HCPCS: 93005; 99212 ==

== ENCOUNTER 2023-02-08 16:23 | Outpatient (REF) | payer MEDICARE, SELFPAY ==
[2023-02-08 17:41] LABS: Alanine Aminotransferase 13 U/L (0-40); Albumin Level 3.9 g/dL (3.5-5.0); Alkaline Phosphatase 104 U/L (39-117); Anion Gap 16 (12-20); Aspartate Amino Transferase 16 U/L (5-37); Bilirubin Total 0.5 mg/dL (0.0-1.0); Blood Urea Nitrogen 18 mg/dL (9-16); Calcium 9.8 mg/dL (8.4-10.2); Carbon Dioxide 26 mmol/L (22-29); Chloride 104 mmol/L (96-108); Estimated Glomerular Filt Rate > 60; Glucose Random 101 mg/dL (60-115); Potassium 4.4 mmol/L (3.3-5.1); Sodium 142 mmol/L (135-145); Total Protein 7.7 g/dL (6.5-8.0)
[2023-02-08 17:56] LABS: TSH reflex Free T4 2.04 uIU/mL (0.32-4.0)
== END 2023-02-08 16:24 | disposition home or self-care (01) ==
LOC: HO.LAB 16:23
PROVIDERS: Visit Provider Nurse Practitioner Family
DX: Z79.899 Other long term (current) drug therapy (principal)
CPT/HCPCS: 36415; 80053; 84443

== ENCOUNTER 2023-02-21 09:44 | Outpatient (REF) | payer MEDICARE, SELFPAY ==
--- NOTE | ~2023-02-21 | CT_ITS ---
EXAMINATION: CT ANGIOGRAM CHEST CLINICAL INFORMATION: Thoracic aortic ectasia. COMPARISON: CT of the chest 08/25/2020, chest radiograph 06/06/2022. TECHNIQUE: Multiple axial images were obtained through the chest after the administration of 70 mL of Omnipaque 350 intravenous contrast. Additional 2-D coronal and sagittal reformatted images and axial 3-D maximum intensity projection MIP images are generated on the CT workstation. This CT examination was performed using dose optimization techniques as appropriate, variously including the following: *Automated exposure control *Adjustment of mA and/or kV according to patient size (this includes techniques or standardized protocols for targeted exams where dose is matched to indication/reason for exam; i.e. extremities or head) *Use of iterative reconstruction technique DLP: 227 mGy-cm VASCULAR FINDINGS: Once again seen is dilatation of the thoracic aorta. Measurements reported below in cm are perpendicular to the center line with minimal and maximal diameters at each level: At The Cus[place]: 5.0 x 4.4 Sinotubular Junction: 4.4 x 3.8 Maximal Ascending Thoracic Aorta: 4.4 x 3.8 Transverse Arch: 2.8 x 2.9 The descending thoracic aorta appears normal. Maximal dimension of the ascending aorta in the transverse plane is 4.5 cm. No aortic dissection is seen. The small visualized portion of the abdominal aorta appears normal. Three-vessel branching pattern of the aortic arch is present with widely patent great vessels. Coronary calcification is seen. NONVASCULAR FINDINGS: LUNGS: Dependent atelectasis is seen with some ground-glass change. Bronchial thickening is present with some traction bronchiectasis at the lung bases, left greater than right. Some tiny pulmonary micronodules are present but no concerning lung mass is seen. MEDIASTINUM: No mediastinal or hilar lymphadenopathy. Heart size is normal. PLEURA: There is no pleural effusion. No pleural mass or thickening. AXILLA: No lymphadenopathy. UPPER ABDOMEN: Partial visualization of a right renal benign cyst which needs no additional imaging or follow-up. OSSEOUS STRUCTURES: Marked degenerative changes throughout the spine. No bony destructive lesions. CT/CT angio chest aorta IMPRESSION: 1. Aneurysmal dilatation of the ascending aorta with maximal dimension of 4.5 cm. Maximal dimension for a patient of 78 years of age would be 4.3 cm. 2. Other incidental findings as described above. Fleischner guidelines were followed. Normal aortic diameters (in millimeters) Ascending aorta: 31+0.16 x age. Descending aorta: 21+0.16 x age. Reference: [employer] J 2006 Maribel; 40 (3): 175-178
[2023-02-21] MEDS: iohexoL 350 MG/ML 100 ML INFUS..BTL IV (11:04)
== END 2023-02-21 09:45 | disposition home or self-care (01) ==
LOC: HO.CT 09:44
PROVIDERS: PCP Family Medicine; Visit Provider Nurse Practitioner Family
DX: I77.810 Thoracic aortic ectasia (principal); R06.00 Dyspnea, unspecified
CPT/HCPCS: 71275; Q9967

== ENCOUNTER → 2023-02-28 10:51 | Outpatient (REF) | payer MEDICARE, SELFPAY ==
--- NOTE | 2023-02-28 10:54 | HM_ITS ---
Conclusion: 1. Baseline was normal sinus rhythm with average heart of 52 beats per minute 2. Frequent sinus bradycardia with 84% time heart rate below 60 beats per minute with average heart of 52 beats per minute and lowest heart rate of 34 beats per minute with no significant pauses greater than 2.5 seconds 3. Frequent PACs with total burden of 2.8% 4. Occasional PVCs with total burden of 0.7% 5. Patient marked 1 event without any significant associated symptoms correlating with sinus rhythm MTDD
== END ==
LOC: HO.CARD 10:51
PROVIDERS: PCP Family Medicine; Visit Provider Nurse Practitioner Family
DX: R00.1 Bradycardia, unspecified (principal)
CPT/HCPCS: 93242

== ENCOUNTER 2023-06-10 12:35 | Outpatient (REF) | payer MEDICARE, SELFPAY ==
[2023-06-10 12:54] LABS: MANUAL DIFF FLAG NO
[2023-06-10 13:34] LABS: Basophils Percent Auto 0.3 % (0-2); Eosinophils Absolute Auto 0.3 X10*3/uL (0.0-0.4); Eosinophils Percent Auto 2.7 % (0-4); Hematocrit 43.1 % (42.0-52.0); Hemoglobin 14.1 g/dl (14.0-18.0); Imm Gran Abs Auto 0.04 X10*3/uL (0.00-0.03); Imm Gran Pct Auto 0.3 % (0.0-0.4); Lymphocytes Absolute Auto 2.4 X10*3/uL (1.2-4.9); Lymphocytes Percent Auto 19.8 % (20-40); Mean Corpuscular HGB Conc 32.7 g/dl (31.0-36.0); Mean Corpuscular Hemoglobin 30.7 pg (27.0-33.0); Mean Corpuscular Volume 93.9 fL (80.0-98.0); Mean Platelet Volume 9.9 fL (9.4-12.4); Monocytes Absolute Auto 1.1 X10*3/uL (0.1-1.2); Monocytes Percent Auto 9.1 % (2-11); Neutrophils Absolute Auto 8.1 x10*3/uL (2.0-8.3); Neutrophils Percent Auto 67.8 % (45-73); Platelet Count 345 X10*3/uL (160-400); Red Blood Count 4.59 X10*6/uL (4.60-5.80); Red Cell Distribution Width 13.8 % (11.0-16.0); White Blood Count 11.9 X10*3/uL (4.8-10.8)
[2023-06-10 13:43] LABS: Appearance Urine Clear; Color Urine Yellow; Glucose Urine UA Negative (Negative); Leukocyte Esterase Urine Negative (Negative); Nitrite Urine Negative (Negative); PH 6.5 (5.0-9.0); Urine Blood Negative (Negative); Urine Ketones Negative (Negative); Urine Protein Negative (Neg-Trace)
[2023-06-10 13:49] LABS: Bacteria Urine None Seen (None Seen); Hyaline Casts Urine 0-2 /LPF (0-2); RBC Urine 0-2 /HPF (0-2); Squamous Epithelial Cell Urine 0-2 /HPF (0-2); WBC Urine 0-5 /HPF (0-5)
[2023-06-10 14:39] LABS: Albumin Level 3.8 g/dL (3.5-5.0); Anion Gap 14 (12-20); Blood Urea Nitrogen 19 mg/dL (9-16); Calcium 10.6 mg/dL (8.4-10.2); Carbon Dioxide 26 mmol/L (22-29); Chloride 106 mmol/L (96-108); Estimated Glomerular Filt Rate > 60; Magnesium 1.8 mg/dL (1.6-2.6); Phosphorus 3.2 mg/dL (2.7-4.5); Potassium 3.6 mmol/L (3.3-5.1); Sodium 142 mmol/L (135-145)
[2023-06-10 14:48] LABS: Creatinine Urine 104.92 mg/dL; Microalbum/Creatinine Ratio Ur 7.6 ug/mg cr (<30); Total Protein Urine Random < 7 mg/dL (<12)
[2023-06-10 14:57] LABS: Vitamin D 25-OH Total 27.6 ng/mL (>30)
[2023-06-11 17:09] LABS: Calcium (PTHI) 9.8 mg/dL (8.6-10.3); PTHI 38 pg/mL (16-77)
== END 2023-06-10 12:36 | disposition home or self-care (01) ==
LOC: HO.LAB 12:35
PROVIDERS: PCP Family Medicine; Visit Provider Internal Medicine Nephrology
DX: I12.9 Hypertensive chronic kidney disease with stage 1 through stage 4 chronic kidney disease, or unspecified chronic kidney disease (principal); N18.2 Chronic kidney disease, stage 2 (mild); N28.89 Other specified disorders of kidney and ureter
CPT/HCPCS: 36415; 80051; 81001; 82040; 82043; 82306; 82310; 82565; 82570; 83735; 83970; 84100; 84156; 84520; 85025; 87086

== ENCOUNTER 2023-07-23 13:24 | Outpatient (AMB) | payer MEDICARE, SELFPAY ==
--- NOTE | 2023-07-23 13:33 | A.OFFVIS_ITS ---
Intake Vital Signs 07/23/23 13:34 Height 5 ft 7 in Weight 210 lb BMI 32.9 BP 124/62 Blood Pressure Location Lt brachial Position Sitting Pulse 46 L Pulse Source Pulse Oximeter Pulse Oximetry (%) 97 Oxygen Delivery Method Room Air Intake Visit Reasons: COPD follow-up Allergies cefepime Allergy (Intermediate, Verified 07/23/23 13:45) RASH/BLISTERS, rash metronidazole [From FLAGYL] Allergy (Intermediate, Verified 07/23/23 13:45) Rash Medication List - Last Reconciled 07/23/23 by Kylee Middleton MD albuterol sulfate 90 mcg/actuation (ProAir HFA) 2 puffs inhalation Q4-6H PRN 30 days albuterol sulfate 2.5 mg (3 mL) inhalation Q4-6H PRN 30 days amiodarone 200 mg PO DAILY amlodipine 5 mg PO DAILY apixaban (Eliquis) 5 mg PO BID calcium carbonate (Tums) 200 mg PO TID PRN 30 days chlorthalidone 25 mg PO DAILY docusate sodium (Colace) 100 mg PO BID fluticasone propionate 50 mcg/actuation 2 sprays intranasal DAILY loratadine (Claritin) 10 mg PO DAILY PRN metformin 1,000 mg PO BID metoprolol succinate ER 25 mg PO DAILY montelukast 10 mg PO DAILY rosuvastatin 5 mg PO DAILY sildenafil mg PO PRN tamsulosin 0.4 mg PO DAILY trazodone 50 mg PO BEDTIME Wixela Inhub 250-50 mcg/dose (fluticasone propion-salmeterol) 1 inh inhalation BID NS Do you need a note to return to daycare/school/sports/work: No HPI COPD follow-up HPI Details THIS 78 YEARS OLD VERY PLEASANT GENTLEMAN IS HERE FOR 6 MONTHS FOLLOW- UP. FOR HIS OBSTRUCTIVE SLEEP APNEA HE IS USING CPAP EVERY NIGHT REGULARLY AND SLEEPS WELL. FOR COPD HE DOES USE HIS INHALERS REGULARLY, BREATHING IS REMAINING STABLE. HIS MAIN PROBLEM IS BOUTS OF COUGH, WHICH CAN START WHEN HE WAKES UP IN THE MORNING, AND WHEN HE GOES OUTDOORS. HE HAS CHRONIC NASAL ALLERGIES AND TAKES HIS MEDS REGULARLY. BE JUST HAD A LONG DISCUSSION ABOUT CONTROL OF COUGH. OVERALL IS DOING WELL [facility] Medical History (Updated 07/23/23 @ 14:07 by Kylee Middleton MD) Cough COPD exacerbation Acute rhinosinusitis Obesity (BMI 30-39.9) Pulmonary nodule ABBY on CPAP COPD (chronic obstructive pulmonary disease) Allergic rhinitis Pneumonia Surgical History History of knee replacement (~08/2020) S/P skin biopsy H/O tympanostomy H/O colonoscopy History of parathyroidectomy History of esophagogastroduodenoscopy (EGD) Family History Father NIDDY (non-insulin dependent diabetes mellitus in young) Prostate cancer HTN (hypertension), benign Mother Bone cancer Breast cancer Maternal Grandmother CAD (coronary artery disease) Brother Rectal cancer Social History Alcohol intake: former Patient Tobacco Use Status: Former Tobacco user Quit Date: Years Smoked: 20 +/- Review of Systems Const All systems reviewed & are unremarkable except as noted in HPI and below Denies weakness Eyes Reports no additional complaints ENT Denies dizziness and Reports nasal congestion (Off and on) Card Denies chest pain, Denies chest pain with activity, Reports irregular heart rhythm, Reports leg edema, Reports lightheadedness and Reports dyspnea on exertion (One or 2 blocks) Resp Reports cough (Mild only associated with postnasal drip) and Reports dyspnea on exertion (One or 2 blocks) GI Reports no additional complaints Reports no additional complaints Neuro Denies dizziness and Denies weakness Physical Exam Vital Signs: Last Vital Signs Pulse 46 L 07/23/23 13:34 BP 124/62 07/23/23 13:34 Pulse Ox 97 07/23/23 13:34 Oxygen Delivery Method Room Air 07/23/23 13:34 BMI result Body Mass Index 32.9 Const General: comfortable, no acute distress, alert and awake Orientation/consciousness: patient oriented x3 HEENT Head: Yes normal to inspection General nose exam: No nasal polyps present, No nasal discharge present and Other nasal findings present (MILD DO BILATERAL NASAL CONGESTION) Face and sinus: Yes sinuses nontender Mouth: oropharynx normal and other (There is moderate degree of nasal congestion, and post pharyngeal mucous) Throat: Yes posterior oropharynx normal Eyes General: appearance normal, both eyes and all related structures Eyelids: Yes other (RIGHT LOWER EYELID IS READ, HAS HAD RECENT SURGERY) Neck Neck: Yes normal visual inspection, Yes no lymphadenopathy, Yes trachea midline and Yes no JVD Thyroid: Thyroid normal Chest Chest palpation & inspection: normal inspection of the chest, normal palpation of entire chest wall and no tenderness Resp Other: BREATH SOUNDS ARE DISTANT AND ESPECIALLY DIMINISHED OVER THE BASILAR AREAS. HIS LUNGS ARE RELATIVELY CLEAR TODAY NO WHEEZES HEARD , HAS A FEW FINE CREPS. OVER THE BASILAR AREAS . Cardio Palpation: normal PMI Rate: regular rate Rhythm: regular rhythm Heart sounds: no gallops and no murmurs GI Palpation (GI): Soft to palpation, nontender, No hepatosplenomegaly present, no masses and Other GI palpation findings present (ABDOMEN IS OBESE AND PROTUBERANT) Auscultation: normal bowel sounds Back/Spine/Pelvis Thoracic/Lumbar Spine: thoracic and lumbar spine normal to inspection Skin General skin exam: no rashes or lesions noted Neuro General: patient oriented x3 and no focal motor deficits Cranial nerves: Yes CN's II-XII intact bilaterally Extrem General: Yes normal to inspection, No no joint enlargement (Left knee status post TKR.), Yes no clubbing, cyanosis or edema and Yes no calf tenderness Psych Appearance: grossly normal Speech and movement: Normal speech and movement present Assessment & Plan Assessment & Plan (1) COPD (chronic obstructive pulmonary disease): Comment: Chronic moderately severe, remains relatively well controlled. Gets some wheezing when he is congested, lot of times it is secondary to nasal allergies. [place] : CONTINUE WIXELA 250-50 1 INHALATION B.I.D. AND PROAIR RESPICLICK 1 INHALATION Q 4-6 HOURS P.R.N. MAY ALSO USE ALBUTEROL SOLN. IN NEBULIZER , IN AMs Code(s): J44.9 - Chronic obstructive pulmonary disease, unspecified (2) ABBY on CPAP: Comment: NASAL PILLOWS . Very compliant , and benefitting , No issues . Advised to use Humidification regularly . Code(s): G47.33 - Obstructive sleep apnea (adult) (pediatric); Z99.89 - Dependence on other enabling machines and devices (3) Allergic rhinitis: Comment: It is well controlled . Cont. Claritin-D one tab daily . Cont. singulair 10 mg daily Code(s): J30.9 - Allergic rhinitis, unspecified (4) Cough: Comment: HIS CHRONIC COUGH, COMES IN BOUTS, SOMETIME IN THE MORNING AND SOMETIME WHEN HE GOES OUTDOORS. IT IS DUE TO COMBINATION OF HIS ASTHMA/COPD, AND ALLERGIC RHINITIS. [place] : CONTINUE TREATMENT FOR COPD AND ALLERGIC RHINITIS. MAY USE COUGH. DROPS P.R.N. IF THE COUGH IS PERSISTENT THEN USE ALBUTEROL INHALER OR ALBUTEROL SOLUTION IN THE NEBULIZER Q. 4-6 HOURS P.R.N. Code(s): R05.9 - Cough, unspecified Coding Level of Care Code Est Pt Level 4 (76480) Diagnoses COPD (chronic obstructive pulmonary disease) J44.9 ABBY on CPAP G47.33; Z99.89 Allergic rhinitis J30.9 Cough R05.9
[2023-07-23 13:34] VITALS: BP 124/62; PULSE 46; O2SAT 97; BMI 32.9
== END 2023-07-23 14:01 | disposition home or self-care (01) ==
PROVIDERS: PCP Family Medicine; Visit Provider Internal Medicine
DX: J44.9 Chronic obstructive pulmonary disease, unspecified (principal); G47.33 Obstructive sleep apnea (adult) (pediatric); Z99.89 Dependence on other enabling machines and devices; J30.9 Allergic rhinitis, unspecified; R05.9 Cough, unspecified
CPT/HCPCS: 99214

== ENCOUNTER → 2023-07-23 13:24 | Outpatient (BNVA) | payer MEDICARE, SELFPAY | PROVIDERS: Visit Provider Internal Medicine | DX: J44.9 Chronic obstructive pulmonary disease, unspecified (principal); J30.9 Allergic rhinitis, unspecified; G47.33 Obstructive sleep apnea (adult) (pediatric); R05.9 Cough, unspecified; Z99.89 Dependence on other enabling machines and devices | CPT/HCPCS: 99212 ==

== ENCOUNTER 2023-08-05 13:55 | Outpatient (AMB) | payer MEDICARE, SELFPAY ==
--- NOTE | 2023-08-05 14:06 | A.OFFVIS_ITS ---
Intake Vital Signs 08/05/23 14:14 Height 5 ft 7 in Weight 205 lb 14.588 oz BMI 32.2 BP 132/72 Blood Pressure Location Rt brachial Position Sitting Respiration 14 Pulse Source Palpation Intake Visit Reasons: 6 month f/u after testing Intake Note: Junior is a 78 year old male who presents today for a 6 months follow up after his testing. Patient reports having a low heart rate. He states that his BP has been reading high in his machine at home. BP was obtained today 132/72 and pulse of 44. Allergies cefepime Allergy (Intermediate, Verified 07/23/23 13:45) RASH/BLISTERS, rash metronidazole [From FLAGYL] Allergy (Intermediate, Verified 07/23/23 13:45) Rash Medication List - Last Reconciled 08/05/23 by Gilberto Olivares MD albuterol sulfate 90 mcg/actuation (ProAir HFA) 2 puffs inhalation Q4-6H PRN 30 days albuterol sulfate 2.5 mg (3 mL) inhalation Q4-6H PRN 30 days amiodarone 200 mg PO DAILY amlodipine 5 mg PO DAILY apixaban (Eliquis) 5 mg PO BID calcium carbonate (Tums) 200 mg PO TID PRN 30 days chlorthalidone 25 mg PO DAILY docusate sodium (Colace) 100 mg PO BID fluticasone propionate 50 mcg/actuation 2 sprays intranasal DAILY loratadine (Claritin) 10 mg PO DAILY PRN metformin 1,000 mg PO BID metoprolol succinate ER 25 mg PO DAILY montelukast 10 mg PO DAILY rosuvastatin 5 mg PO DAILY sildenafil mg PO PRN tamsulosin 0.4 mg PO DAILY trazodone 50 mg PO BEDTIME Wixela Inhub 250-50 mcg/dose (fluticasone propion-salmeterol) 1 inh inhalation BID NS HPI HPI Comments History of Present Illness Details Pleasant 78-year-old gentleman who is here for follow-up. He has background history of paroxysmal atrial fibrillation and has been on amiodarone along with beta danilo. He is on apixaban for anticoagulation. No bleeding issues. He is here for follow-up today. He is complaining that since December he has been feeling more short of breath. He said during winter time he was not active and mostly was sedentary. As he started doing activities he is more short of breath. He is denying chest discomfort. He is saying he may be can walk 1 block. He is saying his weight has been stable. His BMI is 36. 08/05/23: He is here for follow-up. He is saying that his pulse has been low in 40s when he has gone for other office visits. He is on amiodarone and metoprolol. His pulse by palpation is around 55-60. He has no symptoms. Denying chest discomfort, shortness of breath, dizziness or lightheadedness or fatigue. Taking medications regularly. [facility] Medical History (Updated 07/23/23 @ 14:07 by Kylee Middleton MD) Cough COPD exacerbation Acute rhinosinusitis Obesity (BMI 30-39.9) Pulmonary nodule ABBY on CPAP COPD (chronic obstructive pulmonary disease) Allergic rhinitis Pneumonia Surgical History History of knee replacement (~08/2020) S/P skin biopsy H/O tympanostomy H/O colonoscopy History of parathyroidectomy History of esophagogastroduodenoscopy (EGD) Family History Father NIDDY (non-insulin dependent diabetes mellitus in young) Prostate cancer HTN (hypertension), benign Mother Bone cancer Breast cancer Maternal Grandmother CAD (coronary artery disease) Brother Rectal cancer Social History Alcohol intake: former Patient Tobacco Use Status: Former Tobacco user Quit Date: Years Smoked: 20 +/- Physical Exam Vital Signs: Last Vital Signs Resp 14 08/05/23 14:14 BP 132/72 08/05/23 14:14 BMI result Body Mass Index 32.2 GENERAL APPEARANCE: in no acute distress, well developed, well nourished. NECK/THYROID: no carotid bruit, no jugular venous distention. SKIN: no suspicious lesions, warm and dry. HEART: no murmurs, regular rate and rhythm, S1, S2 normal. LUNGS: ? Fine crackles both bases to approximately 1/3 lungs. ABDOMEN: normal, bowel sounds present, soft, nontender, nondistended. EXTREMITIES: no clubbing, cyanosis, or edema. PERIPHERAL PULSES: equal. NEUROLOGIC: nonfocal, alert and oriented. Assessment & Plan Assessment & Plan (1) On amiodarone therapy: Code(s): Z79.899 - Other long-term (current) drug therapy (2) Bradycardia: Code(s): R00.1 - Bradycardia, unspecified (3) Atrial fibrillation: Code(s): I48.91 - Unspecified atrial fibrillation Qualifiers: Atrial fibrillation type: paroxysmal Qualified Code(s): I48.0 - Paroxysmal atrial fibrillation Plan Pleasant 78-year-old gentleman who is here for follow-up. He has background history of paroxysmal atrial fibrillation. He has been on amiodarone 200 mg daily. He has fine crackles on examination but his CT scan has not shown any interstitial lung disease but in fact has previous COPD and bronchiectasis. He follows with pulmonology closely. Clinically has been stable. Denying any significant chest pain or shortness of breath. Blood pressure control is good. He is complaining that his pulse rate at times is low. His pulse currently is around 60. He has no symptoms currently. I have advised him that he should continue same medications for now. Obviously if any concerns about heart rate come in the future then Toprol-XL can be stopped as 1st step. He will see us back in 6 months. Thank you for allowing me to participate in the care of your patient. Please feel free to contact me if you have any questions. Coding Level of Care Code Est Pt Level 4 (58944) Diagnoses On amiodarone therapy Z79.899 Bradycardia R00.1 Paroxysmal atrial fibrillation I48.0 Atrial fibrillation type: paroxysmal
[2023-08-05 14:14] VITALS: BP 132/72; RESP 14; BMI 32.2
== END 2023-08-05 14:29 | disposition home or self-care (01) ==
PROVIDERS: Visit Provider Internal Medicine Cardiovascular Disease
DX: Z79.899 Other long term (current) drug therapy (principal); R00.1 Bradycardia, unspecified; I48.0 Paroxysmal atrial fibrillation
CPT/HCPCS: 99214

== ENCOUNTER → 2023-08-05 13:55 | Outpatient (BNVA) | payer MEDICARE, SELFPAY | PROVIDERS: Visit Provider Internal Medicine Cardiovascular Disease | DX: I48.0 Paroxysmal atrial fibrillation (principal); R00.1 Bradycardia, unspecified; Z79.899 Other long term (current) drug therapy | CPT/HCPCS: 99212 ==

== ENCOUNTER 2024-01-28 13:21 | Outpatient (AMB) | payer MEDICARE, SELFPAY ==
--- NOTE | 2024-01-28 13:26 | A.OFFVIS_ITS ---
Vital Signs 01/28/24 13:27 Height 5 ft 7 in Weight 205 lb 0.478 oz BMI 32.1 BP 138/60 Blood Pressure Location Lt brachial Position Sitting Pulse 45 L Pulse Source Pulse Oximeter Pulse Oximetry (%) 97 Oxygen Delivery Method Room Air Intake Visit Reasons: COPD follow-up Intake Note: pt is here for follow up and states he is doing well. 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 Allergies cefepime Allergy (Intermediate, Verified 01/28/24 13:40) RASH/BLISTERS, rash metronidazole [From FLAGYL] Allergy (Intermediate, Verified 01/28/24 13:40) Rash Medication List - Last Reconciled 01/28/24 by Kylee Middleton MD albuterol sulfate 2.5 mg (3 mL) inhalation Q4-6H PRN 30 days albuterol sulfate 90 mcg/actuation (ProAir HFA) 2 puffs inhalation Q4-6H PRN 30 days amiodarone 200 mg PO DAILY amlodipine 5 mg PO DAILY apixaban (Eliquis) 5 mg PO BID calcium carbonate (Tums) 200 mg PO TID PRN 30 days chlorthalidone 25 mg PO DAILY docusate sodium (Colace) 100 mg PO BID fluticasone propionate 50 mcg/actuation 2 sprays intranasal DAILY PRN loratadine (Claritin) 10 mg PO DAILY PRN metformin 500 mg PO DAILY metoprolol succinate ER 25 mg PO DAILY montelukast 10 mg PO DAILY rosuvastatin 5 mg PO DAILY sildenafil mg PO PRN tamsulosin 0.4 mg PO DAILY trazodone 50 mg PO BEDTIME Wixela Inhub 250-50 mcg/dose (fluticasone propion-salmeterol) 1 inh inhalation BID NS Do you need a note to return to daycare/school/sports/work: No HPI HPI COPD follow-up: Details: MIRI 78 years old gentleman is here for 6 months follow-up. He has mild intermittent nasal congestion. Occasional wheezing. No significant shortness of breath on walking around. As far as sleep apnea is concerned he uses his CPAP regularly, currently he is using nasal pillows and is getting use to it. He sleeps good. No issue with the CPAP machine. [facility] Medical History Cough COPD exacerbation Acute rhinosinusitis Obesity (BMI 30-39.9) Pulmonary nodule ABBY on CPAP COPD (chronic obstructive pulmonary disease) Allergic rhinitis Pneumonia Surgical History History of knee replacement (~08/2020) S/P skin biopsy H/O tympanostomy H/O colonoscopy History of parathyroidectomy History of esophagogastroduodenoscopy (EGD) Family History Father NIDDY (non-insulin dependent diabetes mellitus in young) Prostate cancer HTN (hypertension), benign Mother Bone cancer Breast cancer Maternal Grandmother CAD (coronary artery disease) Brother Rectal cancer Social History Alcohol intake: former Patient Tobacco Use Status: Former Tobacco user Quit Date: Years Smoked: 20 +/- Review of Systems Const All systems reviewed & are unremarkable except as noted in HPI and below Denies weakness Eyes Reports no additional complaints ENT Denies dizziness and Reports nasal congestion (Off and on) Card Denies chest pain, Denies chest pain with activity, Reports irregular heart rhythm, Reports leg edema, Reports lightheadedness and Reports dyspnea on exertion (One or 2 blocks) Resp Reports cough (Mild only associated with postnasal drip) and Reports dyspnea on exertion (One or 2 blocks) GI Reports no additional complaints Reports no additional complaints Neuro Denies dizziness and Denies weakness Physical Exam Vital Signs: Last Vital Signs Pulse 45 L 01/28/24 13:27 BP 138/60 01/28/24 13:27 Pulse Ox 97 01/28/24 13:27 Oxygen Delivery Method Room Air 01/28/24 13:27 BMI result Body Mass Index 32.1 Const General: comfortable, no acute distress, alert and awake Orientation/consciousness: patient oriented x3 HEENT Head: Yes normal to inspection General nose exam: No nasal polyps present, No nasal discharge present and Other nasal findings present (MILD DO BILATERAL NASAL CONGESTION) Face and sinus: Yes sinuses nontender Mouth: oropharynx normal and other (There is moderate degree of nasal congestion, and post pharyngeal mucous) Throat: Yes posterior oropharynx normal Eyes General: appearance normal, both eyes and all related structures Eyelids: Yes other (RIGHT LOWER EYELID IS READ, HAS HAD RECENT SURGERY) Neck Neck: Yes normal visual inspection, Yes no lymphadenopathy, Yes trachea midline and Yes no JVD Thyroid: Thyroid normal Chest Chest palpation & inspection: normal inspection of the chest, normal palpation of entire chest wall and no tenderness Resp Other: BREATH SOUNDS ARE DISTANT AND ESPECIALLY DIMINISHED OVER THE BASILAR AREAS. HIS LUNGS ARE RELATIVELY CLEAR TODAY NO WHEEZES HEARD , HAS A FEW FINE CREPS. OVER THE BASILAR AREAS . Cardio Palpation: normal PMI Rate: regular rate Rhythm: regular rhythm Heart sounds: no gallops and no murmurs GI Palpation (GI): Soft to palpation, nontender, No hepatosplenomegaly present, no masses and Other GI palpation findings present (ABDOMEN IS OBESE AND PROTUBERANT) Auscultation: normal bowel sounds Back/Spine/Pelvis Thoracic/Lumbar Spine: thoracic and lumbar spine normal to inspection Skin General skin exam: no rashes or lesions noted Neuro General: patient oriented x3 and no focal motor deficits Cranial nerves: Yes CN's II-XII intact bilaterally Extrem General: Yes normal to inspection, No no joint enlargement (Left knee status post TKR.), Yes no clubbing, cyanosis or edema and Yes no calf tenderness Psych Appearance: grossly normal Speech and movement: Normal speech and movement present Results Reviewed Results Reviewed: Compliance report not available but he is using the CPAP very regularly every night Assessment & Plan Assessment & Plan (1) Obesity (BMI 30-39.9): Comment: He remains moderately obese, and is stable . Code(s): E66.9 - Obesity, unspecified Category: Medical Plan: Advised to continue reducing the amount of carbs and calories. (2) ABBY on CPAP: Comment: NASAL PILLOWS , comfortable , Very compliant , and benefitting , No issues . Code(s): G47.33 - Obstructive sleep apnea (adult) (pediatric); Z99.89 - Dependence on other enabling machines and devices Category: Medical Plan: Advised to continue using CPAP every night. Use Humidification regularly . (3) COPD (chronic obstructive pulmonary disease): Comment: Chronic moderately severe, remains relatively well controlled. Gets some wheezing when he is congested, lot of times it is secondary to nasal allergies. Code(s): J44.9 - Chronic obstructive pulmonary disease, unspecified Category: Medical Plan: [place] : CONTINUE WIXELA 250-50 1 INHALATION B.I.D. AND PROAIR RESPICLICK 1 INHALATION Q 4-6 HOURS P.R.N. MAY ALSO USE ALBUTEROL SOLN. IN NEBULIZER , IN AMs (4) Pulmonary nodule: Comment: Chronic , in LT. lower lobe , benign as per b/x in [address] scan in 2019 . This nodule was not seen A few new, small nodules were seen , less than 4 mm . He is a low risk case Code(s): R91.1 - Solitary pulmonary nodule Category: Medical Plan: No need to have follow-up CT scans. (5) Allergic rhinitis: Comment: It is well controlled . Code(s): J30.9 - Allergic rhinitis, unspecified Category: Medical Plan: [place] : Cont. Claritin-D one tab daily . Cont. singulair 10 mg daily Coding Level of Care Code Est Pt Level 3 (62820) Diagnoses Obesity (BMI 30-39.9) E66.9 ABBY on CPAP G47.33; Z99.89 COPD (chronic obstructive pulmonary disease) J44.9 Pulmonary nodule R91.1 Allergic rhinitis J30.9
[2024-01-28 13:27] VITALS: BP 138/60; PULSE 45; O2SAT 97; BMI 32.1
== END 2024-01-28 13:51 | disposition home or self-care (01) ==
PROVIDERS: PCP Family Medicine; Visit Provider Internal Medicine
DX: E66.9 Obesity, unspecified (principal); G47.33 Obstructive sleep apnea (adult) (pediatric); Z99.89 Dependence on other enabling machines and devices; J44.9 Chronic obstructive pulmonary disease, unspecified; R91.1 Solitary pulmonary nodule; J30.9 Allergic rhinitis, unspecified
CPT/HCPCS: 99213

== ENCOUNTER → 2024-01-28 13:21 | Outpatient (BNVA) | payer MEDICARE, SELFPAY | PROVIDERS: PCP Family Medicine; Visit Provider Internal Medicine | DX: J44.9 Chronic obstructive pulmonary disease, unspecified (principal); J30.9 Allergic rhinitis, unspecified; G47.33 Obstructive sleep apnea (adult) (pediatric); R91.1 Solitary pulmonary nodule; E66.9 Obesity, unspecified; Z99.89 Dependence on other enabling machines and devices; Z68.32 Body mass index [BMI] 32.0-32.9, adult | CPT/HCPCS: 99212 ==

== ENCOUNTER 2024-02-10 12:35 | Outpatient (AMB) | payer MEDICARE, SELFPAY ==
[2024-02-10 12:42] VITALS: BP 120/60; PULSE 42; BMI 32.5
--- NOTE | 2024-02-10 12:42 | MHC.OFFVIS ---
Vital Signs 02/10/24 12:42 Height 5 ft 7 in Weight 207 lb 3.752 oz BMI 32.5 BP 120/60 Blood Pressure Location Lt brachial Position Sitting Pulse 42 L Intake Visit Reasons: 6 mth f/up Intake Note: pt its doing fine. 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 Accompanied by: Self / Same As Patient Allergies cefepime Allergy (Intermediate, Verified 01/28/24 13:40) RASH/BLISTERS, rash metronidazole [From FLAGYL] Allergy (Intermediate, Verified 01/28/24 13:40) Rash Medication List - Last Reconciled 02/10/24 by Gilberto Olivares MD albuterol sulfate 2.5 mg (3 mL) inhalation Q4-6H PRN 30 days albuterol sulfate 90 mcg/actuation (ProAir HFA) 2 puffs inhalation Q4-6H PRN 30 days amiodarone 200 mg PO DAILY amlodipine 5 mg PO DAILY apixaban (Eliquis) 5 mg PO BID calcium carbonate (Tums) 200 mg PO TID PRN 30 days chlorthalidone 25 mg PO DAILY docusate sodium (Colace) 100 mg PO BID fluticasone propionate 50 mcg/actuation 2 sprays intranasal DAILY PRN loratadine (Claritin) 10 mg PO DAILY PRN metformin 500 mg PO DAILY metoprolol succinate ER 25 mg PO DAILY montelukast 10 mg PO DAILY rosuvastatin 5 mg PO DAILY sildenafil mg PO PRN tamsulosin 0.4 mg PO DAILY trazodone 50 mg PO BEDTIME Wixela Inhub 250-50 mcg/dose (fluticasone propion-salmeterol) 1 inh inhalation BID NS HPI Comments Details: Pleasant 78-year-old gentleman who is here for follow-up. He has background history of paroxysmal atrial fibrillation and has been on amiodarone along with beta danilo. He is on apixaban for anticoagulation. No bleeding issues. He is here for follow-up today. He is complaining that since December he has been feeling more short of breath. He said during winter time he was not active and mostly was sedentary. As he started doing activities he is more short of breath. He is denying chest discomfort. He is saying he may be can walk 1 block. He is saying his weight has been stable. His BMI is 36. 08/05/23: He is here for follow-up. He is saying that his pulse has been low in 40s when he has gone for other office visits. He is on amiodarone and metoprolol. His pulse by palpation is around 55-60. He has no symptoms. Denying chest discomfort, shortness of breath, dizziness or lightheadedness or fatigue. Taking medications regularly. 02/10/24: Here for follow-up. He is saying that he gets out of breath easily and gets fatigued easily. In his day-to-day life inside the house he has no issues but when he pushes himself he gets out of breath easily. He also has been bradycardic which has been noticed previously. His heart rate in the office is 42 with marked sinus bradycardia on EKG. He is on amiodarone for paroxysmal atrial fibrillation and metoprolol succinate 25 mg daily. Denying chest discomfort. [facility] Medical History Cough COPD exacerbation Acute rhinosinusitis Obesity (BMI 30-39.9) Pulmonary nodule ABBY on CPAP COPD (chronic obstructive pulmonary disease) Allergic rhinitis Pneumonia Surgical History History of knee replacement (~08/2020) S/P skin biopsy H/O tympanostomy H/O colonoscopy History of parathyroidectomy History of esophagogastroduodenoscopy (EGD) Family History Father NIDDY (non-insulin dependent diabetes mellitus in young) Prostate cancer HTN (hypertension), benign Mother Bone cancer Breast cancer Maternal Grandmother CAD (coronary artery disease) Brother Rectal cancer Social History Alcohol intake: former Patient Tobacco Use Status: Former Tobacco user Quit Date: Years Smoked: 20 +/- Review of Systems Const Denies chills, Denies fatigue, Denies fever(s), Denies frequent falls, Denies weakness, Denies weight gain and Denies weight loss ENT Denies dizziness Card Denies chest pain, Denies leg edema, Denies lightheadedness, Denies palpitations, Denies dyspnea and Denies dyspnea on exertion Resp Denies cough, Denies dyspnea and Denies dyspnea on exertion GI Denies hematochezia Musc Denies abnormal gait, Denies muscle weakness, Denies numbness, Denies radiating pain into limb and Denies tingling Neuro Denies abnormal gait, Denies dizziness, Denies frequent falls, Denies numbness, Denies tingling and Denies weakness Endo Denies fatigue and Denies palpitations Physical Exam Vital Signs: Last Vital Signs Pulse 42 L 02/10/24 12:42 BP 120/60 02/10/24 12:42 BMI result Body Mass Index 32.5 GENERAL APPEARANCE: in no acute distress, well developed, well nourished. NECK/THYROID: no carotid bruit, no jugular venous distention. SKIN: no suspicious lesions, warm and dry. HEART: no murmurs, regular rate and rhythm, S1, S2 normal. LUNGS: ? Fine crackles both bases to approximately 1/3 lungs. ABDOMEN: normal, bowel sounds present, soft, nontender, nondistended. EXTREMITIES: no clubbing, cyanosis, or edema. PERIPHERAL PULSES: equal. NEUROLOGIC: nonfocal, alert and oriented. Office Procedures EKG Details: Sinus bradycardia 42 beats per minute, normal axis, incomplete right bundle-branch block, QTC 442 milliseconds. [id number], Complete Assessment & Plan Assessment & Plan (1) HTN (hypertension), benign: Code(s): I10 - Essential (primary) hypertension Category: Medical (2) Atrial fibrillation: Code(s): I48.91 - Unspecified atrial fibrillation Category: Medical Qualifiers: Atrial fibrillation type: paroxysmal Qualified Code(s): I48.0 - Paroxysmal atrial fibrillation (3) MENDOZA (dyspnea on exertion): Code(s): R06.00 - Dyspnea, unspecified Category: Medical Plan [age] gentleman with paroxysmal atrial fibrillation on amiodarone and metoprolol. He has bradycardia on examination and by EKG. I have advised him to stop the metoprolol succinate for now. He is on amiodarone 200 mg daily for paroxysmal atrial fibrillation. He is on apixaban for anticoagulation. Blood pressure is well controlled currently. He is complaining of dyspnea which is due to underlying lung disease. He follows with Dr. Middleton regularly. I have advised him to exercise regularly. If breathing does not improve with exercise then he may need further assessment including stress testing although I feel his dyspnea is mostly due to lung disease and deconditioning. Thank you for allowing me to participate in the care of your patient. Please feel free to contact me if you have any questions. Coding Level of Care Code Est Pt Level 4 (89163) Diagnoses HTN (hypertension), benign I10 Paroxysmal atrial fibrillation I48.0 Atrial fibrillation type: paroxysmal MENDOZA (dyspnea on exertion) R06.00 CPT Codes EKG - CPT: [id number], Complete ([id number])
== END 2024-02-10 13:17 | disposition home or self-care (01) ==
PROVIDERS: PCP Family Medicine; Visit Provider Internal Medicine Cardiovascular Disease
DX: I10 Essential (primary) hypertension (principal); I48.0 Paroxysmal atrial fibrillation; R06.00 Dyspnea, unspecified
CPT/HCPCS: 93010; 99214

== ENCOUNTER → 2024-02-10 12:35 | Outpatient (BNVA) | payer MEDICARE, SELFPAY | PROVIDERS: PCP Family Medicine; Visit Provider Internal Medicine Cardiovascular Disease | DX: I48.0 Paroxysmal atrial fibrillation (principal); I10 Essential (primary) hypertension; R06.00 Dyspnea, unspecified | CPT/HCPCS: 93005; 99212 ==

== ENCOUNTER 2024-05-06 13:00 | Outpatient (AMB) | payer MEDICARE, SELFPAY ==
--- NOTE | 2024-05-06 13:10 | A.OFFVIS_ITS ---
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: No Accompanied by: Self / Same As Patient Allergies cefepime Allergy (Intermediate, Verified 01/28/24 13:40) RASH/BLISTERS, rash metronidazole [From FLAGYL] Allergy (Intermediate, Verified 01/28/24 13:40) Rash Medication List - Last Reconciled 05/06/24 by Gilberto Olivares MD albuterol sulfate 2.5 mg (3 mL) inhalation Q4-6H PRN 30 days albuterol sulfate 90 mcg/actuation (ProAir HFA) 2 puffs inhalation Q4-6H PRN 30 days amiodarone 200 mg PO DAILY amlodipine 5 mg PO DAILY apixaban (Eliquis) 5 mg PO BID calcium carbonate (Tums) 200 mg PO TID PRN 30 days chlorthalidone 25 mg PO DAILY docusate sodium (Colace) 100 mg PO BID fluticasone propionate 50 mcg/actuation 2 sprays intranasal DAILY PRN 90 days loratadine (Claritin) 10 mg PO DAILY PRN metformin 500 mg PO DAILY montelukast 10 mg PO DAILY rosuvastatin 5 mg PO DAILY sildenafil mg PO PRN tamsulosin 0.4 mg PO DAILY trazodone 50 mg PO BEDTIME Wixela Inhub 250-50 mcg/dose (fluticasone propion-salmeterol) 1 inh inhalation BID NS HPI Comments Details: Pleasant 78-year-old gentleman who is here for follow-up. He has background history of paroxysmal atrial fibrillation and has been on amiodarone along with beta danilo. He is on apixaban for anticoagulation. No bleeding issues. He is here for follow-up today. He is complaining that since December he has been feeling more short of breath. He said during winter time he was not active and mostly was sedentary. As he started doing activities he is more short of breath. He is denying chest discomfort. He is saying he may be can walk 1 block. He is saying his weight has been stable. His BMI is 36. 08/05/23: He is here for follow-up. He is saying that his pulse has been low in 40s when he has gone for other office visits. He is on amiodarone and metoprolol. His pulse by palpation is around 55-60. He has no symptoms. Denying chest discomfort, shortness of breath, dizziness or lightheadedness or fatigue. Taking medications regularly. 02/10/24: Here for follow-up. He is saying that he gets out of breath easily and gets fatigued easily. In his day-to-day life inside the house he has no issues but when he pushes himself he gets out of breath easily. He also has been bradycardic which has been noticed previously. His heart rate in the office is 42 with marked sinus bradycardia on EKG. He is on amiodarone for paroxysmal atrial fibrillation and metoprolol succinate 25 mg daily. Denying chest discomfort. 05/06/2024: He is here for follow-up. On last visit his heart rate was 42 beats per minute. He was on metoprolol and amiodarone. We stopped the metoprolol. He is saying since he stopped the metoprolol he feels more energetic. His heart rates are consistently in 50s to 60s. No dizziness or lightheadedness. No significant chest discomfort shortness of breath. Taking medications regularly. He is saying he did blood workup recently. He will check whether a TSH and LFT was in there otherwise he will get them done with us this is monitoring for amiodarone. [facility] Medical History (Updated 05/06/24 @ 13:15 by Urszula Brewster CMA) Lobulation of kidney Cough COPD exacerbation Acute rhinosinusitis Obesity (BMI 30-39.9) Pulmonary nodule ABBY on CPAP COPD (chronic obstructive pulmonary disease) Allergic rhinitis Pneumonia Surgical History History of knee replacement (~08/2020) S/P skin biopsy H/O tympanostomy H/O colonoscopy History of parathyroidectomy History of esophagogastroduodenoscopy (EGD) Family History Father NIDDY (non-insulin dependent diabetes mellitus in young) Prostate cancer HTN (hypertension), benign Mother Bone cancer Breast cancer Maternal Grandmother CAD (coronary artery disease) Brother Rectal cancer Social History Alcohol intake: former Patient Tobacco Use Status: Former Tobacco user Years Smoked: 20 +/- Review of Systems Const Denies chills, Denies fatigue, Denies fever(s), Denies frequent falls, Denies weakness, Denies weight gain and Denies weight loss ENT Denies dizziness Card Denies chest pain, Denies leg edema, Denies lightheadedness, Denies palpitations, Denies dyspnea and Denies dyspnea on exertion Resp Denies cough, Denies dyspnea and Denies dyspnea on exertion GI Denies hematochezia Musc Denies abnormal gait, Denies muscle weakness, Denies numbness, Denies radiating pain into limb and Denies tingling Neuro Denies abnormal gait, Denies dizziness, Denies frequent falls, Denies numbness, Denies tingling and Denies weakness Endo Denies fatigue and Denies palpitations Physical Exam Vital Signs: Last Vital Signs Pulse 57 05/06/24 13:11 BP 130/62 05/06/24 13:11 BMI result Body Mass Index 32.7 GENERAL APPEARANCE: in no acute distress, well developed, well nourished. NECK/THYROID: no carotid bruit, no jugular venous distention. SKIN: no suspicious lesions, warm and dry. HEART: no murmurs, regular rate and rhythm, S1, S2 normal. LUNGS: ? Fine crackles both bases to approximately 1/3 lungs. ABDOMEN: normal, bowel sounds present, soft, nontender, nondistended. EXTREMITIES: no clubbing, cyanosis, or edema. PERIPHERAL PULSES: equal. NEUROLOGIC: nonfocal, alert and oriented. Office Procedures EKG Details: Sinus bradycardia 57 beats per minute, normal axis, first-degree AV block with [place] interval 222, right bundle-branch block, QRS duration 120 milliseconds, QTC 465 milliseconds. [id number], Complete Assessment & Plan Assessment & Plan (1) Atrial fibrillation: Code(s): I48.91 - Unspecified atrial fibrillation Category: Medical Qualifiers: Atrial fibrillation type: paroxysmal Qualified Code(s): I48.0 - Paroxysmal atrial fibrillation (2) HTN (hypertension), benign: Code(s): I10 - Essential (primary) hypertension Category: Medical (3) Therapeutic drug monitoring: Code(s): Z51.81 - Encounter for therapeutic drug level monitoring Category: Medical Plan Pleasant 79-year-old gentleman who is here for follow-up. He has known history of paroxysmal atrial fibrillation. He has been treated with amiodarone and has been in sinus rhythm. He was previously bradycardic and metoprolol was discontinued which has improved his heart rate. He feels better and more ener getic. He has COPD and has chronic dyspnea. Clinically not in heart failure. No concerning chest discomfort or pain reported. I have requested a TSH and liver panel for him. He said he did some blood workup at [facility] recently and will check whether he has done these test there. If he has not then he will come to [facility] in due TSH and liver panel. Thank you for allowing me to participate in the care of your patient. Please feel free to contact me if you have any questions. Orders: Orders TSH reflex Free T4 Today Z51.81 - Encounter for therapeutic drug level monitoring Liver Panel Today Z51.81 - Encounter for therapeutic drug level monitoring Coding Level of Care Code Est Pt Level 4 (60538) Diagnoses Paroxysmal atrial fibrillation I48.0 Atrial fibrillation type: paroxysmal HTN (hypertension), benign I10 Therapeutic drug monitoring Z51.81 CPT Codes EKG - CPT: 16398-[id number], Complete ([id number])
[2024-05-06 13:11] VITALS: BP 130/62; PULSE 57; BMI 32.7
== END 2024-05-06 13:34 | disposition home or self-care (01) ==
PROVIDERS: PCP Family Medicine; Visit Provider Internal Medicine Cardiovascular Disease
DX: I48.0 Paroxysmal atrial fibrillation (principal); I10 Essential (primary) hypertension; Z51.81 Encounter for therapeutic drug level monitoring
CPT/HCPCS: 93010; 99214

== ENCOUNTER → 2024-05-06 13:00 | Outpatient (BNVA) | payer MEDICARE, SELFPAY | PROVIDERS: PCP Family Medicine; Visit Provider Internal Medicine Cardiovascular Disease | DX: Z51.81 Encounter for therapeutic drug level monitoring (principal); I48.0 Paroxysmal atrial fibrillation; I10 Essential (primary) hypertension; R00.1 Bradycardia, unspecified; I44.0 Atrioventricular block, first degree; I45.10 Unspecified right bundle-branch block; R94.31 Abnormal electrocardiogram [ECG] [EKG] | CPT/HCPCS: 93005; 99212 ==

== ENCOUNTER 2024-05-11 09:08 | Outpatient (REF) | payer MEDICARE, SELFPAY ==
[2024-05-11 10:04] LABS: Alanine Aminotransferase 10 U/L (0-40); Albumin Level 3.9 g/dL (3.5-5.0); Alkaline Phosphatase 94 U/L (39-117); Aspartate Amino Transferase 13 U/L (5-37); Bilirubin Direct 0.2 mg/dL (0.0-0.5); Bilirubin Total 0.5 mg/dL (0.0-1.0); Total Protein 8.2 g/dL (6.5-8.0)
[2024-05-11 10:21] LABS: TSH reflex Free T4 2.87 uIU/mL (0.32-4.0)
== END 2024-05-11 09:09 | disposition home or self-care (01) ==
LOC: HO.LAB 09:08
PROVIDERS: PCP Family Medicine; Visit Provider Internal Medicine Cardiovascular Disease
DX: Z51.81 Encounter for therapeutic drug level monitoring (principal)
CPT/HCPCS: 36415; 80076; 84443

== ENCOUNTER 2024-07-01 08:46 | Outpatient (REF) | payer MEDICARE, SELFPAY ==
[2024-07-01 09:53] LABS: Appearance Urine Clear; Color Urine Yellow; Glucose Urine UA Negative (Negative); Leukocyte Esterase Urine Negative (Negative); Nitrite Urine Negative (Negative); PH 7.5 (5.0-9.0); Specific Gravity - Urine 1.015 (1.005-1.025); Urine Blood Negative (Negative); Urine Ketones Negative (Negative); Urine Protein Negative (Neg-Trace)
[2024-07-01 10:13] LABS: Anion Gap 13 (12-20); Blood Urea Nitrogen 16 mg/dL (9-16); Calcium 10.1 mg/dL (8.4-10.2); Carbon Dioxide 27 mmol/L (22-29); Chloride 105 mmol/L (96-108); Estimated Glomerular Filt Rate > 60; Potassium 3.9 mmol/L (3.3-5.1); Sodium 141 mmol/L (135-145)
[2024-07-01 10:28] LABS: Creatinine Urine 75.24 mg/dL; Microalbum/Creatinine Ratio Ur 15.9 ug/mg cr (<30); Total Protein Urine Random < 7 mg/dL (<12)
== END 2024-07-01 08:47 | disposition home or self-care (01) ==
LOC: HO.LAB 08:46
PROVIDERS: PCP Family Medicine; Visit Provider Internal Medicine Nephrology
DX: N18.31 Chronic kidney disease, stage 3a (principal)
CPT/HCPCS: 36415; 80051; 81003; 82043; 82310; 82565; 82570; 84156; 84520

== ENCOUNTER 2024-08-20 14:34 | Outpatient (AMB) | payer MEDICARE, SELFPAY ==
[2024-08-20 14:45] VITALS: BP 132/68; PULSE 57; O2SAT 96; BMI 33.5
--- NOTE | 2024-08-20 14:45 | MHC.OFFVIS ---
Vital Signs 08/20/24 14:45 Height 5 ft 7 in Weight 213 lb 13.574 oz BMI 33.5 BP 132/68 Blood Pressure Location Lt brachial Position Sitting Pulse 57 Pulse Source Pulse Oximeter Pulse Oximetry (%) 96 Oxygen Delivery Method Room Air Intake Visit Reasons: COPD Intake Note: pt is here for follow up and states he is feeling good. Tractor Technician Required: No Allergies cefepime Allergy (Intermediate, Verified 08/20/24 15:14) RASH/BLISTERS, rash metronidazole [From FLAGYL] Allergy (Intermediate, Verified 08/20/24 15:14) Rash Medication List - Last Reconciled 08/20/24 by Kylee Middleton MD albuterol sulfate 2.5 mg (3 mL) inhalation Q4-6H PRN 30 days albuterol sulfate 90 mcg/actuation (ProAir HFA) 2 puffs inhalation Q4-6H PRN 30 days amiodarone 200 mg PO DAILY amlodipine 5 mg PO DAILY apixaban (Eliquis) 5 mg PO BID calcium carbonate (Tums) 200 mg PO TID PRN 30 days chlorthalidone 25 mg PO DAILY docusate sodium (Colace) 100 mg PO BID fluticasone propionate 50 mcg/actuation 2 sprays intranasal DAILY PRN 90 days loratadine (Claritin) 10 mg PO DAILY PRN metformin 500 mg PO DAILY montelukast 10 mg PO DAILY rosuvastatin 5 mg PO DAILY sildenafil mg PO PRN tamsulosin 0.4 mg PO DAILY trazodone 50 mg PO BEDTIME Wixela Inhub 250-50 mcg/dose (fluticasone propion-salmeterol) 1 ea PO BID NS Do you need a note to return to daycare/school/sports/work: No HPI HPI COPD: Details: Lj comes after 6 months for follow-up. He has chronic allergic rhinitis, which flares up every now and then, but mostly under controlled. Has chronic obstructive pulmonary disorder which is also stable and controlled, with worsening of the symptoms when there is some change in the weather. Luckily he has had no acute infection. He is known to have obstructive sleep apnea which is treated with CPAP and he is a very regular user of CPAP. Currently using nasal pillows which is quite comfortable. Lately he has had a skin lesion from the left scapular area removed which was skin cancer but has been excise completely. Also has had a mass resected from the right kidney, does not know exactly what the etiology was, but he was told that 80% of that mass was resected. He is going to be monitored closely for any regrowth. [facility] Medical History Lobulation of kidney Cough COPD exacerbation Acute rhinosinusitis Obesity (BMI 30-39.9) Pulmonary nodule ABBY on CPAP COPD (chronic obstructive pulmonary disease) Allergic rhinitis Pneumonia Surgical History History of knee replacement (~08/2020) S/P skin biopsy H/O tympanostomy H/O colonoscopy History of parathyroidectomy History of esophagogastroduodenoscopy (EGD) Family History Father NIDDY (non-insulin dependent diabetes mellitus in young) Prostate cancer HTN (hypertension), benign Mother Bone cancer Breast cancer Maternal Grandmother CAD (coronary artery disease) Brother Rectal cancer Social History Alcohol intake: former Patient Tobacco Use Status: Former Tobacco user Years Smoked: 20 +/- Review of Systems Const All systems reviewed & are unremarkable except as noted in HPI and below Denies weakness Eyes Reports no additional complaints ENT Denies dizziness and Reports nasal congestion (Off and on) Card Denies chest pain, Denies chest pain with activity, Reports irregular heart rhythm, Reports leg edema, Reports lightheadedness and Reports dyspnea on exertion (One or 2 blocks) Resp Reports cough (Mild only associated with postnasal drip) and Reports dyspnea on exertion (One or 2 blocks) GI Reports no additional complaints Reports no additional complaints Neuro Denies dizziness and Denies weakness Physical Exam Vital Signs: Last Vital Signs Pulse 57 08/20/24 14:45 BP 132/68 08/20/24 14:45 Pulse Ox 96 08/20/24 14:45 Oxygen Delivery Method Room Air 08/20/24 14:45 BMI result Body Mass Index 33.5 Const General: comfortable, no acute distress, alert and awake Orientation/consciousness: patient oriented x3 HEENT Head: Yes normal to inspection General nose exam: No nasal polyps present, No nasal discharge present and Other nasal findings present (MILD DO BILATERAL NASAL CONGESTION) Face and sinus: Yes sinuses nontender Mouth: oropharynx normal and other (There is moderate degree of nasal congestion, and post pharyngeal mucous) Throat: Yes posterior oropharynx normal Eyes General: appearance normal, both eyes and all related structures Eyelids: Yes other (RIGHT LOWER EYELID IS READ, HAS HAD RECENT SURGERY) Neck Neck: Yes normal visual inspection, Yes no lymphadenopathy, Yes trachea midline and Yes no JVD Thyroid: Thyroid normal Chest Chest palpation & inspection: normal inspection of the chest, normal palpation of entire chest wall and no tenderness Resp Other: BREATH SOUNDS ARE DISTANT AND ESPECIALLY DIMINISHED OVER THE BASILAR AREAS. HIS LUNGS ARE RELATIVELY CLEAR TODAY NO WHEEZES HEARD , HAS A FEW FINE CREPS. OVER THE BASILAR AREAS . Cardio Palpation: normal PMI Rate: regular rate Rhythm: regular rhythm Heart sounds: no gallops and no murmurs GI Palpation (GI): Soft to palpation, nontender, No hepatosplenomegaly present, no masses and Other GI palpation findings present (ABDOMEN IS OBESE AND PROTUBERANT) Auscultation: normal bowel sounds Back/Spine/Pelvis Thoracic/Lumbar Spine: thoracic and lumbar spine normal to inspection Skin General skin exam: no rashes or lesions noted Neuro General: patient oriented x3 and no focal motor deficits Cranial nerves: Yes CN's II-XII intact bilaterally Extrem General: Yes normal to inspection, No no joint enlargement (Left knee status post TKR.), Yes no clubbing, cyanosis or edema and Yes no calf tenderness Psych Appearance: grossly normal Speech and movement: Normal speech and movement present Results Reviewed Results Reviewed: Compliance data for the CPAP is not available. But he uses it 100% of the time Assessment & Plan Assessment & Plan (1) COPD (chronic obstructive pulmonary disease): Comment: Chronic COPD , moderately severe, remains relatively well controlled. Gets some wheezing when he is congested, lot of times it is secondary to nasal allergies. Code(s): J44.9 - Chronic obstructive pulmonary disease, unspecified Category: Medical Plan: Continue to use Wixela 250-51 inhalation b.i.d. And albuterol HFA 2 puffs Q 6 hours p.r.n. also has albuterol solution to be used in the nebulizer Q 4-6 hours p.r.n. when at home. (2) Allergic rhinitis: Comment: Has chronic allergic rhinitis, around the year, with intermittent flare ups. Controlled with meds. Code(s): J30.9 - Allergic rhinitis, unspecified Category: Medical Plan: Montelukast 10 mg daily Flonase 0.5 2 sprays in each nostril daily Loratadine 10 mg once a day p.r.n.. (3) ABBY on CPAP: Comment: NASAL PILLOWS , comfortable , Very compliant , and benefitting , No issues . Code(s): G47.33 - Obstructive sleep apnea (adult) (pediatric); Z99.89 - Dependence on other enabling machines and devices Category: Medical Plan: Continue to use CPAP every night at least for 6 hours per night Coding Level of Care Code Est Pt Level 3 (80542) Diagnoses COPD (chronic obstructive pulmonary disease) J44.9 Allergic rhinitis J30.9 ABBY on CPAP G47.33; Z99.89
== END 2024-08-20 15:13 | disposition home or self-care (01) ==
PROVIDERS: PCP Family Medicine; Visit Provider Internal Medicine
DX: J44.9 Chronic obstructive pulmonary disease, unspecified (principal); J30.9 Allergic rhinitis, unspecified; G47.33 Obstructive sleep apnea (adult) (pediatric); Z99.89 Dependence on other enabling machines and devices
CPT/HCPCS: 99213

== ENCOUNTER → 2024-08-20 14:34 | Outpatient (BNVA) | payer MEDICARE, SELFPAY | PROVIDERS: PCP Family Medicine; Visit Provider Internal Medicine | DX: J44.9 Chronic obstructive pulmonary disease, unspecified (principal); J30.9 Allergic rhinitis, unspecified; G47.33 Obstructive sleep apnea (adult) (pediatric); Z99.89 Dependence on other enabling machines and devices | CPT/HCPCS: 99212 ==

== ENCOUNTER 2024-10-06 13:58 | Outpatient (AMB) | payer MEDICARE, SELFPAY ==
[2024-10-06 14:06] VITALS: BP 150/60; PULSE 78; O2SAT 89; BMI 33.5
--- NOTE | 2024-10-06 14:06 | MHC.OFFVIS ---
Vital Signs 10/06/24 14:06 Height 5 ft 7 in Weight 213 lb 13.574 oz BMI 33.5 BP 150/60 H Blood Pressure Location Lt brachial Position Sitting Pulse 78 Pulse Source Pulse Oximeter Pulse Oximetry (%) 89 L Oxygen Delivery Method Room Air Intake Visit Reasons: persistent cough Intake Note: pt is here for sick visit has a cough, some production at times, it occurs when taking a deep breath,he coughs and than gets exhausted, x 4 days Public Relations Officer Required: No Allergies cefepime Allergy (Intermediate, Verified 10/06/24 14:21) RASH/BLISTERS, rash metronidazole [From FLAGYL] Allergy (Intermediate, Verified 10/06/24 14:21) Rash Medication List - Last Reconciled 10/06/24 by Kylee Middleton MD albuterol sulfate 2.5 mg (3 mL) inhalation Q4-6H PRN 30 days albuterol sulfate 90 mcg/actuation (ProAir HFA) 2 puffs inhalation Q4-6H PRN 30 days amiodarone 200 mg PO DAILY amlodipine 5 mg PO DAILY apixaban (Eliquis) 5 mg PO BID calcium carbonate (Tums) 200 mg PO TID PRN 30 days chlorthalidone 25 mg PO DAILY docusate sodium (Colace) 100 mg PO BID fluticasone propionate 50 mcg/actuation 2 sprays intranasal DAILY PRN 90 days loratadine (Claritin) 10 mg PO DAILY PRN metformin 500 mg PO DAILY montelukast 10 mg PO DAILY rosuvastatin 5 mg PO DAILY sildenafil mg PO PRN tamsulosin 0.4 mg PO DAILY trazodone 50 mg PO BEDTIME Wixela Inhub 250-50 mcg/dose (fluticasone propion-salmeterol) 1 ea PO BID NS Do you need a note to return to daycare/school/sports/work: No HPI HPI persistent cough: Details: This 79 years old gentleman, with past history of chronic obstructive pulmonary disease, obesity, obstructive sleep apnea, allergic rhinitis, Comes for an urgent visit because for the last 4-5 days he is having increased nasal congestion, cough which is very bothersome. With increased shortness of breath And general weakness. He is not able to expectorates much His cough is aggravated by any physical activity and also when he talks or if he tries to take a deep breath. PFSH Medical History Lobulation of kidney Cough COPD exacerbation Acute rhinosinusitis Obesity (BMI 30-39.9) Pulmonary nodule ABBY on CPAP COPD (chronic obstructive pulmonary disease) Allergic rhinitis Pneumonia Surgical History History of knee replacement (~08/2020) S/P skin biopsy H/O tympanostomy H/O colonoscopy History of parathyroidectomy History of esophagogastroduodenoscopy (EGD) Family History Father NIDDY (non-insulin dependent diabetes mellitus in young) Prostate cancer HTN (hypertension), benign Mother Bone cancer Breast cancer Maternal Grandmother CAD (coronary artery disease) Brother Rectal cancer Social History Alcohol intake: former Patient Tobacco Use Status: Former Tobacco user Years Smoked: 20 +/- Review of Systems Const All systems reviewed & are unremarkable except as noted in HPI and below Denies weakness Eyes Reports no additional complaints ENT Denies dizziness and Reports nasal congestion (Off and on) Card Denies chest pain, Denies chest pain with activity, Reports irregular heart rhythm, Reports leg edema, Reports lightheadedness and Reports dyspnea on exertion (One or 2 blocks) Resp Reports cough (Mild only associated with postnasal drip) and Reports dyspnea on exertion (One or 2 blocks) GI Reports no additional complaints Reports no additional complaints Neuro Denies dizziness and Denies weakness Physical Exam Vital Signs: Last Vital Signs Pulse 78 10/06/24 14:06 BP 150/60 H 10/06/24 14:06 Pulse Ox 89 L 10/06/24 14:06 Oxygen Delivery Method Room Air 10/06/24 14:06 BMI result Body Mass Index 33.5 Const General: comfortable, no acute distress, alert and awake Orientation/consciousness: patient oriented x3 HEENT Head: Yes normal to inspection General nose exam: No nasal polyps present, No nasal discharge present and Other nasal findings present (MILD DO BILATERAL NASAL CONGESTION) Face and sinus: Yes sinuses nontender Mouth: oropharynx normal and other (There is moderate degree of nasal congestion, and post pharyngeal mucous) Throat: Yes posterior oropharynx normal Eyes General: appearance normal, both eyes and all related structures Eyelids: Yes other (RIGHT LOWER EYELID IS READ, HAS HAD RECENT SURGERY) Neck Neck: Yes normal visual inspection, Yes no lymphadenopathy, Yes trachea midline and Yes no JVD Thyroid: Thyroid normal Chest Chest palpation & inspection: normal inspection of the chest, normal palpation of entire chest wall and no tenderness Resp Other: BREATH SOUNDS ARE DISTANT AND ESPECIALLY DIMINISHED OVER THE BASILAR AREAS. CHEST AUSCULTATION REVEALS BREATH SOUNDS TO BE DISTANT, INSPIRATORY WHEEZES OVER THE MID CHEST ON BOTH SIDES . ANY DEEP BREATH MAKES HIM COUGH. Cardio Palpation: normal PMI Rate: regular rate Rhythm: regular rhythm Heart sounds: no gallops and no murmurs GI Palpation (GI): Soft to palpation, nontender, No hepatosplenomegaly present, no masses and Other GI palpation findings present (ABDOMEN IS OBESE AND PROTUBERANT) Auscultation: normal bowel sounds Back/Spine/Pelvis Thoracic/Lumbar Spine: thoracic and lumbar spine normal to inspection Skin General skin exam: no rashes or lesions noted Neuro General: patient oriented x3 and no focal motor deficits Cranial nerves: Yes CN's II-XII intact bilaterally Extrem General: Yes normal to inspection, No no joint enlargement (Left knee status post TKR.), Yes no clubbing, cyanosis or edema and Yes no calf tenderness Psych Appearance: grossly normal Speech and movement: Normal speech and movement present Assessment & Plan Assessment & Plan (1) COPD exacerbation: Comment: PATIENT IS A KNOWN CASE OF CHRONIC OBSTRUCTIVE PULMONARY DISEASE. AT PRESENT SEEMS TO HAVE AN ACUTE EXACERBATION SECONDARY TO ACUTE BRONCHITIS. Code(s): J44.1 - Chronic obstructive pulmonary disease with (acute) exacerbation Category: Medical Plan: [place] : PREDNISONE 20 MG PO BID X 5 DAYS . COURSE OF Z-JOIE# 1 STEAM INHALATION 2 OR 3 TIMES A DAY DURING THE DAYTIME. CONTINUE REGULAR MEDICATIONS BEFORE (2) Cough: Comment: HIS CHRONIC COUGH, COMES IN BOUTS, SOMETIME IN THE MORNING AND SOMETIME WHEN HE GOES OUTDOORS. IT IS DUE TO COMBINATION OF HIS ASTHMA/COPD, AND ALLERGIC RHINITIS. NOW IT IS WORSE BECAUSE OF ACUTE EXACERBATION OF COPD. Code(s): R05.9 - Cough, unspecified Category: Medical Plan: CONTINUE PRESENT TREATMENT. HOPEFULLY WITH A COURSE OF PREDNISONE AND Z-JOIE THE COUGH WOULD DECREASE TO BASELINE. MAY USE ROBITUSSIN DM 2 TSP T.I.D. P.R.N. FOR COUGH. (3) ABBY on CPAP: Comment: NASAL PILLOWS , comfortable , Very compliant , and benefitting , No issues . Code(s): G47.33 - Obstructive sleep apnea (adult) (pediatric); Z99.89 - Dependence on other enabling machines and devices Category: Medical Plan: CONTINUE TO USE CPAP REGULARLY. (4) Allergic rhinitis: Comment: Has chronic allergic rhinitis, around the year, with intermittent flare ups. Controlled with meds. Code(s): J30.9 - Allergic rhinitis, unspecified Category: Medical Plan: CONTINUE MONTELUKAST 10 MG DAILY FLONASE 2 SPRAY EACH NOSTRIL DAILY AND USE LORATADINE 10 MG ONCE A DAY P.R.N. Medications: New prednisone 20 mg PO BID 5 days 10 tabs 0RF COPD EXCERBATION azithromycin For 250 mg dose pack: take 500 mg today (day 1), then 250 mg for 4 days (days 2-5) PO 6 tabs 0RF Coding Level of Care Code Est Pt Level 3 (86631) Diagnoses COPD exacerbation J44.1 Cough R05.9 ABBY on CPAP G47.33; Z99.89 Allergic rhinitis J30.9
== END 2024-10-06 15:00 ==
PROVIDERS: PCP Family Medicine; Visit Provider Internal Medicine
DX: J44.1 Chronic obstructive pulmonary disease with (acute) exacerbation (principal); R05.9 Cough, unspecified; G47.33 Obstructive sleep apnea (adult) (pediatric); Z99.89 Dependence on other enabling machines and devices; J30.9 Allergic rhinitis, unspecified
CPT/HCPCS: 99213

== ENCOUNTER → 2024-10-06 13:58 | Outpatient (BNVA) | payer MEDICARE, SELFPAY | PROVIDERS: PCP Family Medicine; Visit Provider Internal Medicine | DX: J44.1 Chronic obstructive pulmonary disease with (acute) exacerbation (principal); R05.9 Cough, unspecified; J30.9 Allergic rhinitis, unspecified; G47.33 Obstructive sleep apnea (adult) (pediatric); Z99.89 Dependence on other enabling machines and devices | CPT/HCPCS: 99212 ==

== ENCOUNTER 2025-02-16 10:56 | Outpatient (AMB) | payer MEDICARE, SELFPAY ==
--- NOTE | 2025-02-16 11:01 | A.OFFVIS_ITS ---
Vital Signs 02/16/25 11:02 Height 5 ft 7 in Weight 212 lb 11.937 oz BMI 33.3 BP 130/64 Blood Pressure Location Lt brachial Position Sitting Pulse 71 Pulse Source Pulse Oximeter Pulse Oximetry (%) 96 Oxygen Delivery Method Room Air Intake Visit Reasons: COPD Intake Note: pt is here for iggy/copd follow up and he is feeling alright Clinical Laboratory Technologist Required: No Allergies cefepime Allergy (Intermediate, Verified 02/16/25 12:07) RASH/BLISTERS, rash metronidazole [From FLAGYL] Allergy (Intermediate, Verified 02/16/25 12:07) Rash Medication List - Last Reconciled 02/16/25 by Kylee Middleton MD albuterol sulfate 2.5 mg (3 mL) inhalation Q4-6H PRN 30 days albuterol sulfate 90 mcg/actuation (ProAir HFA) 2 puffs inhalation Q4-6H PRN 30 days amiodarone 200 mg PO DAILY amlodipine 5 mg PO DAILY apixaban (Eliquis) 5 mg PO BID calcium carbonate (Tums) 200 mg PO TID PRN 30 days chlorthalidone 25 mg PO DAILY docusate sodium (Colace) 100 mg PO BID famotidine 20 mg PO BEDTIME fluticasone propionate 50 mcg/actuation 2 sprays intranasal DAILY PRN 90 days lisinopril 2.5 mg PO DAILY loratadine (Claritin) 10 mg PO DAILY PRN metformin 500 mg PO DAILY montelukast 10 mg PO DAILY rosuvastatin 5 mg PO DAILY sildenafil mg PO PRN tamsulosin 0.4 mg PO DAILY trazodone 50 mg PO BEDTIME Wixela Inhub 250-50 mcg/dose (fluticasone propion-salmeterol) 1 ea PO BID NS Do you need a note to return to daycare/school/sports/work: No HPI HPI COPD: Details: ABDULAZIZ is 80 years old gentleman who is here for follow-up after 4 months. He is being treated for chronic obstructive pulmonary disorder and also for sleep apnea. His breathing status has remained stable except for mild intermittent increase in cough. He has had no acute. Exacerbation in the last 4 months He has chronic allergic rhinitis. But now he has not needed to use Flonase for the last 2-3 months. He is using CPAP with nasal pillows. Use it every night for 6-7 hours per night and sleeps well . Wakes up refreshed. [facility] Medical History Lobulation of kidney Cough COPD exacerbation Acute rhinosinusitis Obesity (BMI 30-39.9) Pulmonary nodule IGGY on CPAP COPD (chronic obstructive pulmonary disease) Allergic rhinitis Pneumonia Surgical History History of knee replacement (~08/2020) S/P skin biopsy H/O tympanostomy H/O colonoscopy History of parathyroidectomy History of esophagogastroduodenoscopy (EGD) Family History Father NIDDY (non-insulin dependent diabetes mellitus in young) Prostate cancer HTN (hypertension), benign Mother Bone cancer Breast cancer Maternal Grandmother CAD (coronary artery disease) Brother Rectal cancer Social History Alcohol intake: former Patient Tobacco Use Status: Former Tobacco user Years Smoked: 20 +/- Review of Systems Const All systems reviewed & are unremarkable except as noted in HPI and below Denies weakness Eyes Reports no additional complaints ENT Denies dizziness and Reports nasal congestion (Off and on) Card Denies chest pain, Denies chest pain with activity, Reports irregular heart rhythm, Reports leg edema, Reports lightheadedness and Reports dyspnea on exertion (One or 2 blocks) Resp Reports cough (Mild only associated with postnasal drip) and Reports dyspnea on exertion (One or 2 blocks) GI Reports no additional complaints Reports no additional complaints Neuro Denies dizziness and Denies weakness Physical Exam Vital Signs: Last Vital Signs Pulse 71 02/16/25 11:02 BP 130/64 02/16/25 11:02 Pulse Ox 96 02/16/25 11:02 Oxygen Delivery Method Room Air 02/16/25 11:02 BMI result Body Mass Index 33.3 Const General: comfortable, no acute distress, alert and awake Orientation/consciousness: patient oriented x3 HEENT Head: Yes normal to inspection General nose exam: No nasal polyps present, No nasal discharge present and Other nasal findings present (MILD DO BILATERAL NASAL CONGESTION) Face and sinus: Yes sinuses nontender Mouth: oropharynx normal and other (There is moderate degree of nasal congestion, and post pharyngeal mucous) Throat: Yes posterior oropharynx normal Eyes General: appearance normal, both eyes and all related structures Eyelids: Yes other (RIGHT LOWER EYELID IS READ, HAS HAD RECENT SURGERY) Neck Neck: Yes normal visual inspection, Yes no lymphadenopathy, Yes trachea midline and Yes no JVD Thyroid: Thyroid normal Chest Chest palpation & inspection: normal inspection of the chest, normal palpation of entire chest wall and no tenderness Resp Other: BREATH SOUNDS ARE DISTANT AND ESPECIALLY DIMINISHED OVER THE BASILAR AREAS. CHEST AUSCULTATION REVEALS BREATH SOUNDS TO BE DISTANT, INSPIRATORY WHEEZES OVER THE MID CHEST ON BOTH SIDES . ANY DEEP BREATH MAKES HIM COUGH. Cardio Palpation: normal PMI Rate: regular rate Rhythm: regular rhythm Heart sounds: no gallops and no murmurs GI Palpation (GI): Soft to palpation, nontender, No hepatosplenomegaly present, no masses and Other GI palpation findings present (ABDOMEN IS OBESE AND PROTUBERANT) Auscultation: normal bowel sounds Back/Spine/Pelvis Thoracic/Lumbar Spine: thoracic and lumbar spine normal to inspection Skin General skin exam: no rashes or lesions noted Neuro General: patient oriented x3 and no focal motor deficits Cranial nerves: Yes CN's II-XII intact bilaterally Extrem General: Yes normal to inspection, No no joint enlargement (Left knee status post TKR.), Yes no clubbing, cyanosis or edema and Yes no calf tenderness Psych Appearance: grossly normal Speech and movement: Normal speech and movement present Assessment & Plan Assessment & Plan (1) COPD (chronic obstructive pulmonary disease): Comment: Chronic COPD , moderately severe, remains relatively well controlled. Gets some wheezing when he is congested, lot of times it is secondary to nasal allergies. Currently his COPD is well controlled and stable. Code(s): J44.9 - Chronic obstructive pulmonary disease, unspecified Category: Medical Plan: Continue using Wixela 250-51 inhalation b.i.d. Albuterol HFA 2 puffs Q 4-6 hours p.r.n.. (2) IGGY on CPAP: Comment: NASAL PILLOWS , he has been using the CPAP very regularly, Likes nasal pillows ,comfortable , does not even use Flonase before putting on the CPAP. Very compliant , and benefitting , No issues . Code(s): G47.33 - Obstructive sleep apnea (adult) (pediatric); Z99.89 - Dependence on other enabling machines and devices Category: Medical Plan: Commended for good compliance and advised to continue using CPAP every night. (3) Pulmonary nodule: Comment: Chronic , in LT. lower lobe , benign as per b/x in [address] scan in 2019 . This nodule was not seen A few new, small nodules were seen , less than 4 mm . He is a low risk case Code(s): R91.1 - Solitary pulmonary nodule Category: Medical Plan: Be low risk case he does not need to have any follow-up CT scan of the chest for the nodule, (4) Cough: Comment: HIS CHRONIC COUGH, COMES IN BOUTS, SOMETIME IN THE MORNING AND SOMETIME WHEN HE GOES OUTDOORS. IT IS DUE TO COMBINATION OF HIS ASTHMA/COPD, AND ALLERGIC RHINITIS. Code(s): R05.9 - Cough, unspecified Category: Medical Plan: For sustained bout of cough he may use albuterol updraft 2 puffsb q.4-6 hours p.r.n. (5) Allergic rhinitis: Comment: Has chronic allergic rhinitis, around the year, with intermittent flare ups. Controlled with meds. Code(s): J30.9 - Allergic rhinitis, unspecified Category: Medical Plan: Continue montelukast 10 mg daily. Use Flonase nasal spray 2 spray in each nostril PRN Coding Level of Care Code Est Pt Level 3 (13028) Diagnoses COPD (chronic obstructive pulmonary disease) J44.9 IGGY on CPAP G47.33; Z99.89 Pulmonary nodule R91.1 Cough R05.9 Allergic rhinitis J30.9
[2025-02-16 11:02] VITALS: BP 130/64; PULSE 71; O2SAT 96; BMI 33.3
--- OUTSIDE RECORDS SUMMARY | 2025-02-16 12:13 | XMS_ITS ---
Author Organization [facility] Rosmery komal [place] Address [address] [facility] [place] [address] Care Team Providers Care Maintainer [employer] Name Role Phone Dmitriy Aguilar Primary Care Provider Jose D Ceron Unavailable [phone] Allergies Allergen (clinical drug ingredient) Drug/Non Drug Allergy documented on EMR Reaction Allergy Type Onset Date Status cefepime Cefepime HCl Unknown Drug Allergy Acti ve metronidazole Flagyl Unknown Drug Allergy Act arie REASON FOR VISIT At Risk Footcare, Painful Nail(s) aggrevated by shoes and causing difficulty standing/walking, Toe Irritation Medications Medication SIG (Take, Route, Frequency, Duration) Notes Start Date End Date Status Pantoprazole Sodium 20 MG 2 tablets Orally Once a day Not-Taking Aspirin 81 MG 1 tablet Orally Once a day Not-Taking Losartan Potassium 100 MG 1 tablet Orally Once a day Not-Taking Extra Depth Orthopedic Shoes, (1) Pair With (3) Pair Custom Heat Molded Multidensity Innersoles Dx: NIDDM/PVD(E11.51), Hammertoe Foot Deformity(M20.41,M20.42 ), Preulcerative Skin Lesion(s)(L85.1) Wear Daily for 365 days 01/19/2025 Active Probiotic Active Ammonium Lactate 12 % 1 application Externally to affected areas of skin to feet except for between the toes Twice a day for 30 days Active Metoprolol Succinate 25 MG 1 capsule Orally Once a day Not-Taking Ultravate 0.05 % 1 application to affected area on feet Externally Once a day for 30 days Active Rosuvastatin Calcium Active traZODone HCl 50 MG 1 tablet at bedtime Orally Once a day Active Chlorthalidone 25 MG 1 tablet in the mor maria elena Orally Once a day Active Ciclopirox Olamine 0.77 % 1 application to affected area Externally Twice a day for 30 days Active Amiodarone HCl 200 MG 1 tablet Orally On ce a day Active Eliquis 5 MG as directed Orally twice daily Active metFORMIN HCl 1000 MG 1 tablet with a me al Orally Twice a day Active Acetaminophen 650 MG 1 tablet as needed Orally every 6 hrs PRN Active Lisinopril & Diet Manage Prod Active Advair Diskus 250-50 MCG/DOSE 1 puff Inhalation Twice a day Active Lisinopril-hydroCHLOROth iazide 2.5 mg Active Social History Tobacco Use: Social History Observation Description Date Details (start date - stop date) Never Smoker NA - NA Tobacco use other than smoking: Question Answer Notes Are you an other tobacco user? No Tobacco Control (Standard) Question Answer Notes Tobacco use: Nonsmoker Additional Findings: Tobacco non-user Current no nsmoker AUDIT-C (Standard) Question Answer Notes Did you have a drink containing alcohol in the p ast year? No Points 0 Interpretation Negative Vital Signs Height 5 ft 7.5 in in 01/19/2025 Weight 207 lbs 01/19/2025 BMI 31.94 kg/m2 01/19/2025 Blood pressure systolic 130 mm Hg 01/20/20 25 Blood pressure diastolic 70 mm Hg 025 Procedures Procedure Date Ordered Date Performed Result Body Sit e 43038-FGEATNJ NAIL, 6 OR MORE 01/19/2025 N/A 67229-JMEA SKIN LESIONS, OVER 4 01/19/2025 N/A Encounters Encounter Location Date Provider Diagnosis [facility] [place] [address] [place] [address] 01/19/2025 Jose D Mckeon Type 2 diabetes mellitus with diabetic peripheral angiopathy without gangrene E11.51 ; Tinea unguium B35.1 ; Pain in right toe(s) M79.674 ; Pain in left toe(s) M79.675 ; Other hammer toe(s) (acquired), right foot M20.41 and Other hammer toe(s) (acquired), left foot M20.42 Assessments Encounter Date Diagnosis (ICD Code) Assessment Notes Treatment Notes Treatment Clinical Notes Section Notes 01/19/2025 Type 2 diabetes mellitus with diabetic peripheral angiopathy without gangrene (ICD-10 - E11.51) 01/19/2025 Tinea unguium (ICD-10 - B35.1) 01/19/2025 Pain in right toe(s) (ICD-10 - M79.674) 01/19/2025 Pain in left toe(s) (ICD-10 - M79.675) 01/19/2025 Other hammer toe(s) (acquired), right foot (ICD-10 - M20.41) Patient Educated with: DIABETIC FOOT CARE INSTRUCTIONS.p df (DIABETIC FOOT CARE INSTRUCTIONS.p df) 01/19/2025 Other hammer toe(s) (acquired), left foot (ICD-10 - M20.42) Plan Of Treatment Medication Medication Name Sig Start Date Stop Date Notes Extra Depth Orthopedic Shoes , (1) Pair With (3) Pair Custom Heat Molded Multidensity Innersoles Dx: NIDDM/PVD(E11.51), Hammertoe Foot Deformity(M20.41,M20.42), Preulcerative Skin Lesion(s)(L85.1) Wear Daily for 365 days 01/19/2025 Treatment Notes Assessment Notes Other hammer toe(s) (acquired), right fo ot Patient Educated with: DIABETIC FOOT CARE INSTRUCTIONS.pdf (DIABETIC FOOT CARE INSTRUCTIONS.pdf) Pending Test Test Name Order Date 10988-[id number] NAIL, 6 OR MORE 01/19/2025 88468-BIQD SKIN LESIONS, OVER 4 01/20/20 Next Appt Details Follow Up: prn, Reason: Provider Name:Jose D Mckeon , 04/23/2025 12:45:00 PM, [address] [place] [address], [phone], Procedure Notes * Category Sub-Category Detail Notes Debride Nail 6-10 Nail debridement Due to the cl inical pathology outlined in the exam findings, performance of this nail treatment is medically necessary as its management by an unskilled/untrained nonprofessional would put this patients foot and overall health at risk. Therefore, debridement to affected nail(s), as described in exam ( TA, T1, T2, T3, T4, T5, T6, T7, T8, T9 ), was performed exclusively by the physician of record to reduce/remove overall nail length, girth, thickness, subungual debris, and necrotic tissue, by manual and/or electrical means through the use of a nail nipper and/or dremel-type milk powder grinder, to a more viable healthy nail plate or bed tissue 6-10 nails in total. Silver nitrate was used for any petechial bleeding as necessary. Definitive antifungal treatment options, both pharmaceutical and surgical, have been reviewed and discussed with the patient. The patient solely prefers the use of intermittent/as needed professional debridement services for their nail condition and understands the need for additional periodic treatments to maintain effectiveness in symptomatic relief - 03352 Keratoma Treatment Parring or Cutting o f Benign Hyperkeratotic Lesion(s) (-57) More than 4 Lesions - Due to the at risk nature of the patients medical condition as documented in the exam findings, performance of this keratoderma treatment is medically necessary as its management by an unskilled/untrained nonprofessional would put this patients foot and overall health at risk. Therefore, the benign hyperkeratotic lesions, ( 8 ) in total, locations as stated and described in the exam ( Medial plantar, IPJ, TA, Medial plantar, IPJ, T5, SUB MTH (s), 1, B/L , SUB MTH (s), 5, B/L ,Plantar, Heel(s), B/L ), were pared, and/or cut utilizing a sterile 15 blade, tissue nippers, and/or power dremel instrumentation by the physician of record - 88209, Q8 Progress Notes * DOMO, YvazquezDOB:1945 (79 yo M)Acc No.[id number]:01/19/2025 Progress Note Patient:?Junior OLIVEROS Provider:?Jose D Mckeon DPM :1945???Age:79 Y???Sex:Male Baltazar e:01/19/2025 Address:[address] [place] [address] [address] [place], [id number] Pcp:Dmitriy Aguilar Subjective: * Chief Complaints: * ???At Risk FootcarePainful N ail(s) aggrevated by shoes and causing difficulty standing/walkingToe Irritation * HPI: ???At Risk footcare:?Pt States Last PCP Visit:?Date?12/09/2024 ???Toe pain:?Location:?B/L feet.?Duration:?several years.?Course:?worse.?Aggravated by:?shoes, any pressure.?Treatments:?change in shoes.? * ROS:?General/Constitutional:?Nausea?denies.?Vomiting?denies.?Hunger Thirst?denies.?Loss appetite?denies.?Chills?denies.?Fatigue?denies.?Fever?denies.?Night Sweats?denies.?Unexplained weight loss?denies.?Ophthalmologic:?Blurred vision?denies.?Red eye?denies.?HEENTM:?Dentures?denies.?Dizziness?denies.?Glasses/contacts?denies.?Retinopathy?den ies.?Blurred/double vision?denies.?TMJ?denies.?Discharge/drainage?denies.?Implants?denies.?Hard of hearing denies.?Difficulty chewing/swallowing/speaking?denies.?Nose bleeds?denies.?Sore mouth?denies.?Swollen glands?denies.?Respiratory:?On O xygen?denies.?Pneumonia/pleurisy?denies.?Bronchitis?admits.?Emphysema?denies.?Co ughing?denies.?Cough blood?denies.?Shortness of breath?denies.?Wheezing?denies.?Cardiovascular:?Pacemaker?denies.?MVP?denies.?WPW?denies.?CHF?denies.?Heart attack?denies.?Septal defect?denies.?Rapid beat?denies.?Chest pain ?denies.?Atrial Fib.?admits.?Murmur/Palpitations?denies.?Gastrointestinal:?Hemorrhoids?denies.?Stomach/Abdominal pain?denies.?Dark blood stool?denies.?Irritable bowel ?denies.?Constipation?denies.?Diarrhea?denies.?Vomiting?denies.?Hematology:?Swelling?denies.?Bruising?admits.?Bleeding problem?denies.?Genitourinary:?Blood urine?denies.?Frequent/Painfu/urination/bladder control?denies.?Kidney stones?denies.?Infection (UTI)?denies.?Nephropathy?denies.?Musculoskeletal:?Hammertoes?denies.?Bunions?denies.?Scoliosis/kyphosis?denies.?Muscle cramps / walking?denies.?Generalized aches and pains?admits.?Weakness?denies.?Integ.:?Mancilla?denies.?Scars?denies.?Corns/calluses?admits.?Ingrown nails?admits.?Painful nails?admits.?Rashes?denies.?Neurologic:?Difficulty sleeping?denies.?Bipolar?denies.?Brain disorder?denies.?Balance t rouble?denies.?Confusion?denies.?Fainting/blackouts?denies.?Headache?denies.?German mors?denies.? * Medical History:? * Surgical History:?Parathyroi d 03/27/2012install tube in right ear 2014colonoscopy 03/06/2018install left ear tube. 11/2018knee surgery, left 09/08/2020Cyst on right eyelid 05/2021kidney surgery 07/22/2024 * Hospitalization/Major Diagno stic Procedure:?[place], cough 09/2014[facility] Biopsy 02/2017CT Scan right kidney- small mass found 04/2021 * Family History:?Mother: dece ased, foot problems, diagnosed with Other malignant neoplasm of unspecified site, Diabetic - NIDDM, Family history of arthritis.?Father: , poor circulation, diagnosed with Other malignant neoplasm of unspecified site, Diabetic - NIDDM.?Spouse: alive.? * Social History:?Tobacco Use:?Tobacco use other than smoking?Are you an other tobacco user??No ?Tobacco Control (Standard)?Tobacco use:?Nonsmoker ?Additional Findings: Tobacco non-user?Current nonsmoker ???Drugs/Alcohol:?Drugs?Have you used drugs other than those for medical reasons in the past 12 months??No ???Miscellaneous:?Caffeine: yes, frequency: soda , 1 cups per day. ?Children: yes, 3. ?Exercise: yes, housework,, walking. ?Marital status: . ?Occupation: Retired-Construction. ???Drug/Alcohol:?AUDIT-C (Standard)?Did you have a drink containing alcohol in the past year??No ?Points?0 ?Interpretation?Negative * Medications:?TakingProbiotic Lisinopril-hydroCHLOROthiazide , Notes to Pharmacist: 2.5 mgLisinopril & Diet Manage Prod Advair Diskus 250-50 MCG/DOSE Aerosol Powder Breath Activated 1 puff Inhalation Twice a day Acetaminophen 650 MG Tablet 1 tablet as needed Orally every 6 hrs , Notes to Pharmacist: PRNAmiodarone HCl 200 MG Tablet 1 tablet Orally Once a day Chlorthalidone 25 MG Tablet 1 tablet in the morning Orally Once a day Ciclopirox Olamine 0.77 % Cream 1 application to affected area Externally Twice a day Eliquis 5 MG Tablet as directed Orally twice daily metFORMIN HCl 1000 MG Tablet 1 tablet with a meal Orally Twice a day Rosuvastatin Calcium traZODone HCl 50 MG Tablet 1 tablet at bedtime Orally Once a day Ultravate 0.05 % Cream 1 application to affected area on feet Externally Once a day Ammonium Lactate 12 % Cream 1 application Externally to affected areas of skin to feet except for between the toes Twice a day Taking Probiotic Taking Lisinopril-hydroCHLOROthiazide , Notes to Pharmacist: 2.5 mgTaking Lisinopril & Diet Manage Prod Taking Advair Diskus 250- 50 MCG/DOSE Aerosol Powder Breath Activated 1 puff Inhalation Twice a day Taking Acetaminophen 650 MG Tablet 1 tablet as needed Orally every 6 hrs , Notes to Pharmacist: PRNTaking Amiodarone HCl 200 MG Tablet 1 tablet Orally Once a day Taking Chlorthalidone 25 MG Tablet 1 tablet in the morning Orally Once a day Taking Ciclopirox Olamine 0.77 % Cream 1 application to affected area Externally Twice a day Taking Eliquis 5 MG Tablet as directed Orally twice daily Taking metFORMIN HCl 1000 MG Tablet 1 tablet with a meal Orally Twice a day Taking Rosuvastatin Calcium Taking traZODone HCl 50 MG Tablet 1 tablet at bedtime Orally Once a day Taking Ultravate 0.05 % Cream 1 application to affected area on feet Externally Once a day Taking Ammonium Lactate 12 % Cream 1 application Externally to affected areas of skin to feet except for between the toes Twice a day Not-Taking/PRNMetoprolol Succinate 25 MG Capsule ER 24 Hour Sprinkle 1 capsule Orally Once a day Aspirin 81 MG Tablet 1 tablet Orally Once a day Losartan Potassium 100 MG Tablet 1 tablet Orally Once a day Pantoprazole Sodium 20 MG Tablet Delayed Release 2 tablets Orally Once a day Medication List reviewed and reconciled with the patientNot-Taking/PRN Metoprolol Succinate 25 MG Capsule ER 24 Hour Sprinkle 1 capsule Orally Once a day Not-Taking/PRN Aspirin 81 MG Tablet 1 tablet Orally Once a day Not-Taking/PRN Losartan Potassium 100 MG Tablet 1 tablet Orally Once a day Not-Taking/PRN Pantoprazole Sodium 20 MG Tablet Delayed Release 2 tablets Orally Once a day Medication List reviewed and reconciled with the patient * Allergies:?ylCefefatuma tolliver[Allergies Verified] Objective: * Vitals:?Ht: 5 ft 7.5 in, Wt: 207, BMI: 31.94, Shoe size:9, BP:130/70mm Hg, Ht-cm: 171.45 cm, Wt-k.89 kg. * ???Past Orders: ???Lab:HEMOGLOBIN A1C (GLYCO HEMOGLOBIN) (Order Date - 10/02/2024) (Collection Date & Time - 01/19/2025 01:57 PM) ? Value Reference Range ?HEMOGLOBIN A1C % (HH) 6.4 * Examination: ???Ophthalmology Referral: ?DIABETES EYE EXAM?Procedure Performed:?Yes ?Date of Exam Performed?08/13/2024 ?Diabetic Retinopathy Screening:?Yes ?Retinal Screening Performed:?Yes ?Findings of Diabetic Eye Exam:?no retinopathy?Vascular: ?DP PULSES (B):? 0/4, B/L.?PT PULSES (B):? 0/4, B/L.?CAPILLARY FILL TIME:? delayed, all digits, B/L.?TROPHIC CONDITION-TEXTURE/ELASTICITY/TURGOR/HAIR GROWTH (B):? decreased, with sparse to absent hair growth, B/L.?TEMPERTURE GRADIENT (C):? decreased, cool to cool, proximal to distal, B/L.?PIGMENTATION:? rubrous, B/L.?EDEMA (C):?absent, B/L.?CLAUDICATION (C):?denies, B/L.?REST PAIN:?denies, B/L.?Nails: ?NAILS are:? Elongated, overgrown, dystrophic, lytic, greater than 3mm thick, discolored and friable with crumbly malodorous subungual debris, with pain on palpation,?TA, T1, T2, T3, T4, T5, T6, T7, T8, T9.?Dermatologic: ?SKIN FINDINGS:? Skin exam reveals Keratotic lesion(s) located at, Medial plantar, IPJ, TA, Medial plantar, IPJ, T5, SUB MTH (s), 1, B/L , SUB MTH (s), 5, B/L ,Plantar, Heel(s), B/L.?Orthopedic: ?MUSCLE STRENGTH:?5/5 all groups in a symmetrical fashion , B/L.?FOOT MORPHOLOGY:? Pes Planus structure, No Charcot collapse/destruction noted at MTJ.?DIGITAL DEFORMITIES:?Digital contracture, PIPJ, 2-5 B/L, incompl-reducible to push-up test, no over, nor underlapping, with evidence of shoe producing skin irritation.?FOOTWEAR EVALUATION:?worn, non-supportive, OT were inspected and noted to be severely worn, in poor condition not giving proper support at the present time, shoe gear properties exacerbate patients foot/toe deformity.?Neurological: ?SENSORY:?Neurological exam reveals intact sensorium, pain sensation normal, vibration sensation intact, pinprick sensation is normal in the lower extremities, 5.07 monofilament test performed at plantar aspects of 5 varied sites per foot shows sensation, normal, B/L, Pt denies, anesthesia, burning, paresthesia, tingling, B/L.?General Examination: ?GENERAL APPEARANCE:?Reveals a pleasant, alert, well nourished, well developed, well hydrated individual, who demonstrates proper attention to hygene/body habitus, and is in no acute distress.?ORIENTED:?person, place, and time.?FOOT EXAM:?Lower Extremity Neurological Exam performed:?Yes ?Visual exam of foot performed:?Yes ?Date?01/19/2025 ?Footwear Evaluation?Footwear Evaluation performed:?Yes??? Assessment: * Assessment: 1.?Type 2 diabetes mellitus with diabetic peripheral angiopathy without gangrene - E11.51 (Primary)???2.?Tinea unguium - B35.1???3.?Pain in right toe(s) - M79.674???4.?Pain in left toe(s) - M79.675???5.?Other hammer toe(s) (acquired), right foot - M20.41???Specify :Chronic problem, Worse (4),Rx Management (4)???6.?Other hammer toe(s) (acquired), left foot - M20.42???Specify :Chronic problem, Worse (4),Rx Management (4)??? Plan: * Treatment: 2.?Tinea unguium?Procedure: 34295-[id number] NAIL, 6 OR MORE 3.?Other hammer toe(s) (acqu ired), right foot? Start Extra Depth Orthopedic Shoes, (1) Pair ., With (3) Pair Custom Heat Molded Multidensity Innersoles, Dx: NIDDM/PVD(E11.51), Hammertoe Foot Deformity(M20.41,M20.42), Preulcerative Skin Lesion(s)(L85.1), Wear, Daily, 365 days, 2, Refills 0.?? Notes: Patient Educated with: DIABETIC FOOT CARE INSTRUCTIONS.pdf (DIABETIC FOOT CARE INSTRUCTIONS.pdf)?? * Procedures:?Debride Nail 6-10:?Nail debridement?Due to the clinical pathology outlined in the exam findings, performance of this nail treatment is medically necessary as its management by an unskilled/untrained nonprofessional would put this patients foot and overall health at risk. Therefore, debridement to affected nail(s), as described in exam (?TA, T1, T2, T3, T4, T5, T6, T7, T8, T9?), was performed exclusively by the physician of record to reduce/remove overall nail length, girth, thickness, subungual debris, and necrotic tissue, by manual and/or electrical means through the use of a nail nipper and/or dremel-type milk powder grinder, to a more viable healthy nail plate or bed tissue 6- 10 nails in total. Silver nitrate was used for any petechial bleeding as necessary. Definitive antifungal treatment options, both pharmaceutical and surgical, have been reviewed and discussed with the patient. The patient solely prefers the use of intermittent/as needed professional debridement services for their nail condition and understands the need for additional periodic treatments to maintain effectiveness in symptomatic relief - 37590.?Keratoma Treatment:?Parring or Cutting of Benign Hyperkeratotic Lesion(s)?(-57) More than 4 Lesions - Due to the at risk nature of the patients medical condition as documented in the exam findings, performance of this keratoderma treatment is medically necessary as its management by an unskilled/untrained nonprofessional would put this patients foot and overall health at risk. Therefore, the benign hyperkeratotic lesions, ( 8 ) in total, locations as stated and described in the exam (?Medial plantar,?IPJ,?TA,?Medial plantar,?IPJ,?T5,?SUB MTH (s),?1,?B/L?,?SUB MTH (s),?5,?B/L?,Plantar,?Heel(s),?B/L?), were pared, and/or cut utilizing a sterile 15 blade, tissue nippers, and/or power dremel instrumentation by the physician of record - 09328, Q8.? * Procedure Codes:?64031 DEBRI DE NAIL, 6 OR MORE, Modifiers: XS 00499 TRIM SKIN LESIONS, OVER 4, Modifiers: XS , Q8 * Preventive Medicine:? ??Counseling:?Discussion:?-14: Office or other outpatient visit for the evaluation and management of an established patient, which required a medically appropriate history and/or examination and MODERATE level of DECISION MAKING for: 1 OR MORE CHRONIC PROBLEM(S) THATS WORSENING, 2 STABLE CHRONIC PROBLEMS, A NEWLY DIAGNOSED PROBLEM WITH UNCERTAIN PROGNOSIS, AN ACUTE COMPLICATED INJURY WITH MULTIPLE TREATMENT OPTIONS, OR AN ACUTE PROBLEM WITH ACCOMPANYING SYSTEMIC SYMPTOMS, THAT POSE(S) A MODERATE RISK OF MORBIDITY. THIS CONDITION MAY ALSO INCLUDE RX DRUG MANAGEMENT, OR A DECISON FOR MINOR SURGERY. The visit on the day of the encounter encompassed interpreting the data and educating the patient as to the nature of their condition, treatment options available according to their individual PMH, meds, allergies, and overall health/living conditions, as well as any potential risks or complications that may occur from a failure to adhere to, and participate in, the recommended course of therapy. The discussion included a complete verbal, and/or written explanation of the examination results, any x-rays taken, the proposed diagnosis, and outline of the treatment plan. A schedule for future care needs was also explained. The patient verbalized an understanding of the instructions at this time and agreed to be an active participant in their treatment. If the patient should think of any questions or concerns after the visit, I have encouraged the patient to call the office.?Diabetic Footcare:?The patient was advised against future self nail/callus care due to inherent risks for infection, loss of limb/life given diabetes, peripheral vascular disease.?Digital Surgery:?Digital surgery was discussed with the patient, We elected to try conservative treatment at the present time, due to the patients medical history and increased asssociated post-operative risks.?Digital Treatment:?HT- I explained to the patient the possible etiologies of Hammertoes, including genetics/foot type/shoegear/activity level/exercise routine and the risks/benefits of all the different treatment options for their pain including: No treatment at all, Rest, Ice, New/supportive/wider/deeper Shoegear, Digital Padding/Strapping/Taping/Bracing/Gel protective sleeves, Foot/Ankle AFO Bracing, Stretching exercises, Deep Tissue Massage, Arch support/shoe inserts with splay metatarsal padding, and Custom orthoses. I insisted that any digital devices be removed daily and not worn overnight for safety. The patient is to carefully examine the toes daily for any skin irritation while using any splinting or padding device. The advantages and disadvantages of each option were discussed and the patients questions re: shoegear, padding, custom vs prefabricated inserts, activity level, and consistency in home treatment regimens for optimal success were answered to their verbally confirmed satisfaction.?Shoe Gear Counseling:?SHOE Rx - The patient was counseled in great detail on their muscoloskeletal foot and toe deformities which coincided with the dermatological presentations visualized on exam. We discussed how their deformities put the integrity of their feet at risk for potential pedal complications which makes the accomidative diabetic shoes and cutomizable inserts medically necessary. We discussed the different shoe and insert treatment types and options, as well as the important advantages for adhering to regularly wearing these accomidative devices daily. The patient was made aware of the fact that a failure to abide by these recommedations may be deleterious to their foot health as they are able to prevent many pedal complications such as skin irritation, skin ulceration, infection, and even loss of toe/foot/leg/or life. Time was also spent with the patient dispensing and discussing proper diabetic footcare techniques including daily skin moisturization, daily foot inspection for any interruption in skin integrity including open lesions, or sign of infection such as redness/malodor/drainage/swelling. Also discussed and recommended were procedures regarding daily shoe inspection for the presence of internal foreign bodies as well as any visualized irregular shoe or insert wear. Patient questions re: shoes, inserts, and self foot inspections were answered to their satisfaction as the patient verbally confirmed a full understanding of the above information. A Rx for Extra Depth Orthopedic Shoes with 3 pair of custom heat-molded inserts was dispensed.? ??Screening/Special Tests:?Fall Risk?Screening:?No falls in the past year ?FALLS: Screening for Future Fall Risk?Have you had any falls with injury in the past year??No * Follow Up:?prn * Images: * Sign off status: Completed true * Provider:?Jose D Mckeon DPM Date:?2024 Generated for Rocío ramírez/Karan/Albinoitting on:?02/16/2025 12:12 PM EDT History and Physical Notes * HPI (History of Present Illness) Category Sub-Category Detail Notes Category Not es Toe pain Location: B/L feet Duration: several years Course: worse Aggravated by: shoes, any pressure Treatments: change in shoes At Risk footcare Pt States Last PCP Visit: Date: Examination Category Sub-Category Detail Notes Category Not es Neurological SENSORY: Neurological exa m reveals intact sensorium, pain sensation normal, vibration sensation intact, pinprick sensation is normal in the lower extremities, 5.07 monofilament test performed at plantar aspects of 5 varied sites per foot shows sensation, normal, B/L, Pt denies, anesthesia, burning, paresthesia, tingling, B/L Dermatologic SKIN FINDINGS: Skin exam reveal s Keratotic lesion(s) located at, Medial plantar, IPJ, TA, Medial plantar, IPJ, T5, SUB MTH (s), 1, B/L , SUB MTH (s), 5, B/L ,Plantar, Heel(s), B/L Orthopedic FOOT MORPHOLOGY: Pes Planus stru cture, No Charcot collapse/destruction noted at IAJ FOOTWEAR EVALUATION: worn, non-supportiv e, OT were inspected and noted to be severely worn, in poor condition not giving proper support at the present time, shoe gear properties exacerbate patients foot/toe deformity DIGITAL DEFORMITIES: Digital contracture , PIPJ, 2-5 B/L, incompl-reducible to push-up test, no over, nor underlapping, with evidence of shoe producing skin irritation MUSCLE STRENGTH: 5/5 all groups in a symmetrical fashion , B/L General Examination GENERAL APPEARANCE: Reveals a pleasant, alert, well nourished, well developed, well hydrated individual, who demonstrates proper attention to hygene/body habitus, and is in no acute distress FOOT EXAM: Lower Extremity Neurological Exa m performed:: Yes Visual exam of foot performed:: Yes Date: 01/19/2025 ORIENTED: person, place, and t pepe Footwear Evaluation Footwear Evaluation performe d:: Yes Ophthalmology Referral DIABETES EYE EXAM Procedure Perform ed:: Yes ?Date of Exam Performed: 08/13/2024 Diabetic Retinopathy Screening:: Yes Retinal Screening Performed:: Yes Findings of Diabetic Eye Exam:: no retin opathy Vascular DP PULSES (B): 0/4, B/L PT PULSES (B): 0/4, B/L CAPILLARY FILL TIME: delayed, all digits , B/L TEMPERTURE GRADIENT (C): decreased, cool to cool, proximal to distal, B/L TROPHIC CONDITION-TEXTURE/ELASTICITY/TURGOR/HAIR GROWTH (B): decreased, with sparse to absent hair gr owth, B/L EDEMA (C): absent, B/L CLAUDICATION (C): denies, B/L REST PAIN: denies, B/L PIGMENTATION: rubrous, B/L Nails NAILS are: Elongated, overg rown, dystrophic, lytic, greater than 3mm thick, discolored and friable with crumbly malodorous subungual debris, with pain on palpation, TA, T1, T2, T3, T4, T5, T6, T7, T8, T9
--- OUTSIDE RECORDS SUMMARY | 2025-02-16 12:13 | XMS_ITS | Clinical Summary ---
Author Organization [facility] Address [address] [place] [address] Phone Care Team Providers Care Program Director Air Talent Name Role Phone Physician, Pcp Unknown Primary Care Provider Brianna vailable Social History Tobacco Use Types Packs/Day Years Used Date Smoking Tobacco: Never Assessed Sex and Gender Information Value Date Recorded Sex Assigned at Not on file Legal Sex Male 9:26 AM EST Gender Identity Not on file Sexual Orientation Not on file Plan of Treatment Health Maintenance Due Date Last Done Comments COVID-19 Vaccine (#1) 1950 DTaP,Tdap,and Td Vaccines (1 - Tdap) 1965 Pneumococcal Vaccine: 50+ Ye ars (1 of 2 - PCV) 1965 Zoster Vaccines (1 of 2) 1965 RSV Immunization Adult Patie nts (1 - 1-dose 75+ series) 2021 Cholesterol Screening (Lipid Panel) 08/05/2024 Depression Screening 08/05/2024 Falls Risk Assessment 08/05/2024 Hepatitis C Screening 08/05/2024 Social Influencers of Health Screening 08/05/2024 Influenza Vaccine (Season Ended) 2025 HIB Vaccines Aged Out No longer eligi ble based on patient's age to complete this topic HPV Vaccines Aged Out No longer eligi ble based on patient's age to complete this topic Hepatitis A Vaccines Aged Out No long er eligible based on patient's age to complete this topic Hepatitis B Vaccines Aged Out No long er eligible based on patient's age to complete this topic IPV Vaccines Aged Out No longer eligi ble based on patient's age to complete this topic MMR Vaccines Aged Out No longer eligi ble based on patient's age to complete this topic Meningococcal ACWY Vaccine Aged Out N o longer eligible based on patient's age to complete this topic Meningococcal B Vaccine Aged Out No l onger eligible based on patient's age to complete this topic RSV Immunization Patients Un emeli 20 months Aged Out No longer eligible b ased on patient's age to complete this topic Varicella Vaccines Aged Out No longer eligible based on patient's age to complete this topic Insurance [facility] Care Teams Program Director Air Talent Relationship Specialty Start Date End Date Physician, Pcp Unknown PCP - General 08/05/24
--- OUTSIDE RECORDS SUMMARY | 2025-02-16 12:13 | XMS_ITS | Clinical Summary ---
Author Organization [facility] Address [address] [place] [address] Phone Care Team Providers Care Philosophy Faculty Name Role Phone Dmitriy Aguilar DO Primary Care Provider [phone] Allergies Active Allergy Reactions Criticality Noted Date Comments Cefepime Other (see comments) 12/02/2020 Metronidazole Other (see comments) 12/02/2020 Medications acetaminophen (TYLENOL 8 HOUR) 650 MG 8 hr tablet Active amiodarone (PACERONE) 200 MG tablet Take 1 tablet by mouth 1 (one) time each day Active chlorthalidone (HYGROTON) 25 MG tablet Take 0.5 tablets by mouth 1 (one) time each day 3 Active metoprolol tartrate (LOPRESSOR) 25 MG tablet Take 1 tablet by mouth 1 (one) time each day Active rosuvastatin (CRESTOR) 5 MG tablet Take 1 tablet by mouth 1 (one) time each day Active tamsulosin (FLOMAX) 0.4 MG 24 hr capsule Take 1 capsule by mouth 1 (one) time each day Active traZODone (DESYREL) 50 MG tablet Take 1 tablet by mouth at bed time Active apixaban (Eliquis) 5 MG tablet Take 1 tablet (5 mg total) by mouth 2 (two) times a day 60 tablet 3 1 Active aspirin 325 MG tablet Take 325 mg by mouth 0 Active Fluticasone Furoate-Vilante rol (BREO ELLIPTA IN) Inhale 8 Active fluticasone (FLONASE) 50 MCG/ACT nasal spray Daily, 0 Refills, Maintenance, 04/21/19 11:23:53 EDT 9 Active Simethicone (MAALOX ANTI-GAS PO) Take 30 mL by mouth 0 Active polyethylene glycol (GLYCOLAX) 17 g packet Take 17 g by mouth 0 Active Magnesium Hydroxide (MILK OF MAGNESIA PO) Take 30 mL by mouth 0 Active acetaminophen (TYLENOL) 325 MG tablet Take 650 mg by mouth 0 Active albuterol HFA (PROVENTIL HFA;VENTOLIN HFA) 108 (90 Base) MCG/ACT inhaler Inhale 1 Active Glucosamine-Cho ndroitin (OSTEO BI-FLEX REGULAR STRENGTH PO) 0 Refills, Maintenance, 11/14/20 14:05:00 EST, Partial fill upon patient request if the prescription is for a schedule II opioid drug. 1 Active metFORMIN (GLUCOPHAGE) 500 MG tablet Take 500 mg by mouth 1 Active montelukast (SINGULAIR) 10 MG tablet Take 10 mg by mouth 2 Active pantoprazole (PROTONIX) 40 MG EC tablet Take 40 mg by mouth 1 Active sildenafil (VIAGRA) 100 MG tablet Take 100 mg by mouth 1 Active amLODIPine (NORVASC) 5 MG tablet Take 1.5 tablets (7.5 mg total) by mouth 1 (one) time each day 135 tablet 3 4 04/14/20 25 Active Active Problems Problem Noted Date Diagnosed Date Chronic kidney disease, stage 2 (mild) 2 Allergic rhinitis 11/01/2021 Atrial fibrillation 11/01/2021 Benign prostatic hyperplasia 11/01/2021 Blepharitis of right lower eyelid 11/01/2021 Bradycardia 11/01/2021 Cardiac arrhythmia 11/01/2021 Chronic constipation 11/01/2021 Overview (11/01/2021): seeing GI Chronic obstructive pulmonary disease 11/01/2021 Diabetes mellitus 11/01/2021 Diastasis recti 11/01/2021 Disorder of bone 11/01/2021 Overview (11/01/2021): On right wrist Hyperparathyroidism 11/01/2021 Hyperlipidemia 11/01/2021 Hearing loss 11/01/2021 Overview (11/01/2021): Wears hearing aid Gastroesophageal reflux disease 11/01/2021 H/O: male genital disorder 11/01/2021 Hypertensive disorder 11/01/2021 Osteoarthritis 11/01/2021 Seasonal allergy 11/01/2021 Obstructive sleep apnea syndrome 11/01/2021 Obese class II 11/01/2021 Nodule of lung 11/01/2021 Internal hemorrhoids 11/01/2021 Increased frequency of urination 11/01/2021 Insomnia 11/01/2021 Renal mass 05/04/2021 Abdominal aortic aneurysm 12/05/2020 Benign essential hypertension 12/02/2020 Chronic kidney disease stage 2 12/02/2020 Hypertensive renal disease 12/02/2020 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 Immunizations Immunization Administration Dates Next Due Influenza (IM) Preservative Free 10/15/2021,10/0 09/2019 Influenza, Unspecified 06/21/2023,08/02/2022, Pfizer SARS-COV-2 10/19/2022,10/01/2021,12/27/19 21,12/05/2020 Pneumococcal Conjugate 05/11/2022 Pneumococcal Polysaccharide 03/25/2014 Td, Unspecified 05/13/2015 Family History Medical History Relation Comments Diabetes Child daughter Cancer Father prostate CA Dementia Father Diabetes Father Cancer Mother breast CA, bone CA Relation Status Comments Child Father Mother Social History Tobacco Use Types Packs/Day Years Used Date Smoking Tobacco: Former Smokeless Tobacco: Former Alcohol Use Standard Drinks/Week Comments Not Currently 0 (1 standard drink = 0.6 oz pur e alcohol) Sex and Gender Information Value Date Recorded Sex Assigned at Not on file Legal Sex Male 5:05 PM EST Gender Identity Not on file Sexual Orientation Not on file Last Filed Vital Signs Vital Sign Reading Time Taken Comments Blood Pressure 130/84 08/17/2024 3:43 PM EST Pulse 63 08/17/2024 3:43 PM EST Temperature - - Respiratory Rate - - Oxygen Saturation 95% 08/17/2024 3:43 PM EST Inhaled Oxygen Concentration - - Weight 96.8 kg (213 lb 6.4 oz) 08/17/2024 3:43 P M EST Height 170.2 cm (5' 7 ) 06/23/2019 12:00 PM EDT Body Mass Index 33.42 06/23/2019 12:00 PM EDT Plan of Treatment Upcoming Encounters Date Type Department Care Team (Late st Contact Info) Description 08/23/2025 2:30 PM EST Office Visit [facility] [address] [place] [address] Roman Leal MD [address] [facility] [address] [place] [address] Health Maintenance Due Date Last Done Comments Diabetes: Hemoglobin A1C 10/31/2021 Diabetes: Ophthalmology Exam 10/31/2021 Diabetes: Pedal Pulse Checked 10/31/2021 Diabetes: Sensory Foot Exam 10/31/2021 Diabetes: Visual Foot Exam 10/31/2021 Pneumococcal Vaccine: 50+ Years (2 of 2 - PCV) 05/11/2023 05/11/2022, 03/25/2014 Influenza Vaccine (Season Ended) 2025 06/21/2023, 08/02/2022, 10/24/2021, Additional history exists Pneumococcal Vaccine: Peds (0 to 5 Years) and At-Risk Patients (6 to 49 Years) Discontinued 05/11/2022, 03/25/2014 Hepatitis B Vaccine Aged Out No longe r eligible based on patient's age to complete this topic Insurance [facility] Care Teams Philosophy Faculty Relationship Specialty Start Date End Date Dmitriy Aguilar DO [address] [place] [address] [phone] PCP - General Family Medicine 08/17/24
--- OUTSIDE RECORDS SUMMARY | 2025-02-16 12:13 | XMS_ITS ---
Author [facility] Address [address] [place] [address] Care Team Providers Care Test Carrier Name Role Phone Dmitriy Aguilar Primary Care Provider Jose D Ceron Unavailable [phone] Barnes Encounters Encounter Location Date Provider Diagnosis [address] [address] 01/29/2025 Jose D Mckeon Plan Of Treatment Next Appt Details Provider Name:Jose D Mckeon , 04/23/2025 12:45:00 PM, [address] [place] [address], [id number], Progress Notes * Junior OLIVEROSDOB:1945 (80 yo M)Acc No.[id number]:01/29/2025 Progress Note Patient:?Junior OLIVEROS Provider:?Jose D Mckeon DPM :1945???Age:79 Y???Sex:Male Baltazar e:01/29/2025 Address:[address] [place] [address] [id number] Pcp:Dmitriy Aguilar Subjective: * Chief Complaints: * ???1. Dr Barnes. * Medical History:? Objective: * Vitals:? Assessment: Plan: * Treatment: * Images: * The named appointment provid er may or may not be the originator of this progress note, and it is not deemed complete until electronically signed by the appointment provider. Sign off status: Pending * Provider:?Jose D Mckeon DPM Date:?2024 Generated for Rocío ramírez/Karan/Jillian on:?02/16/2025 12:12 PM EDT
--- OUTSIDE RECORDS SUMMARY | 2025-02-16 12:13 | XMS_ITS ---
Author Organization [facility] Address [address] [place] [address] Care Team Providers Care Rehab Rn Name Role Phone Dmitriy Aguilar Primary Care Provider Jose D Ceron Unavailable [phone] Encounters Encounter Location Date Provider Diagnosis [address] [address] 02/16/2025 Jose D Mckeon Plan Of Treatment Next Appt Details Provider Name:Jose D Mckeon , 04/23/2025 12:45:00 PM, [address] [place], [address], Progress Notes * Junior OLIVEROSDOB:1945 (80 yo M)Acc No.[id number]:02/16/2025 Progress Note Patient:?Junior OLIVEROS Provider:?Jose D Mckeon DPM :1945???Age:80 Y???Sex:Male Baltazar e:02/16/2025 Address:[address] [place] [address] [id number] Pcp:Dmitriy Aguilar Subjective: * Chief Complaints: * ??? * Medical History:? Objective: * Vitals:? Assessment: Plan: * Treatment: * Images: * The named appointment provid er may or may not be the originator of this progress note, and it is not deemed complete until electronically signed by the appointment provider. Sign off status: Pending * Provider:?Jose D Mckeon DPM Date:?2024 Generated for Rocío ramírez/Karan/Jillian on:?02/16/2025 12:13 PM EDT
--- OUTSIDE RECORDS SUMMARY | 2025-02-16 12:13 | XMS_ITS | Encounter Summary ---
Author Organization [facility] Address [address] [place] [address] Care Team Providers Care Food Photographer Name Role Phone Physician, Pcp Unknown Primary Care Provider Brianna vailable Encounter Details Date Type Department Care Team (Late st Contact Info) Description 08/05/2024 Lab Requisition [facility] - Main Lab [address] [facility] [place] [address] Chris Cunningham III, MD [address] [place] [address] [place] [id number] Basal cell carcinoma of skin, unspecified Social History Tobacco Use Types Packs/Day Years Used Date Smoking Tobacco: Never Assessed Sex and Gender Information Value Date Recorded Sex Assigned at Not on file Legal Sex Male 9:26 AM EST Gender Identity Not on file Sexual Orientation Not on file documented as of this encounter Plan of Treatment Not on file documented as of this encounter Procedures Procedure Name Priority Date/Time Associated Diagnosis Comments TISSUE EXAM Routine 08/04/2024 Basal cell carcinoma of skin, unspecified documented in this encounter Results * Tissue Exam (08/04/2024) Final Diagnosis Skin, back-excision: -CICATRIX, CONSISTENT WITH BIOPSY SITE SCAR -Negative for residual neoplasm 08/06/2024 12:59 PM EST [facility] Gross Description A. Back, Lower, : Labeled basal cell carcinoma of back, suture long lateral/short superior . Received in formalin is a 4.4 x 1.4 x 0.8 cm white, wrinkled skin ellipse the and subcutis with orienting sutures present as clinically indicated long lateral (at one tip) and short superior (at one peripheral edge) . Centrally the epidermis is mottled and focally fibrotic. The superior half is inked blue and the inferior half is inked black. The epidermis at the medial tip is inked green. The specimen is serially section sequentially proceeding from medial to lateral. The contiguous cut surfaces are focally fibrotic. Shuttler cruciate sections are submitted in four cassettes. 1-medial and lateral cruciate tips, with green ink at medial tip, two pieces 2-4 center of specimen, blocked out (2-3: two pieces each, 4-one piece) 08/06/2024 12:59 PM EST [facility] Disclaimer Unless otherwise specified, all tissue is 10% NB formalin fixed and paraffin embedded. 08/06/2024 12:59 PM EST [facility] Tissue Lower back structure / Unknown 08/04/2024 08/05/2024 9:41 AM EST us Chris Cunningham III, MD LAB PATHOLOGY ORDERABLES Fi nal Result [facility] [address] [place] [address], documented in this encounter Visit Diagnoses Diagnosis Basal cell carcinoma of skin, unspecified documented in this encounter Care Teams Food Photographer Relationship Specialty Start Date End Date Physician, Pcp Unknown PCP - General 08/05/24 documented as of this encounter
--- OUTSIDE RECORDS SUMMARY | 2025-02-16 12:13 | XMS_ITS | Patient Health Record ---
Author Organization [facility] Rosmery komal CuetoGenaro Address [address] [place] [address] Care Team Providers Care Chamber Magistrate Name Role Phone Dmitriy Aguilra Primary Care Provider Jose D Ceron Unavailable [phone] Allergies Allergen (clinical drug ingredient) Drug/Non Drug Allergy documented on EMR Reaction Allergy Type Onset Date Status cefepime Cefepime HCl Unknown Drug Allergy Acti ve metronidazole Flagyl Unknown Drug Allergy Act arie Results Component Value Reference Range Notes HEMOGLOBIN A1C (GLYCOHEMOGLO BIN) Reviewed date:05/22/2024 12:28:53 PM Interpretation: Performing Lab: Notes/Report: HEMOGLOBIN A1C % (HH) 5.8 HEMOGLOBIN A1C (GLYCOHEMOGLO BIN) Reviewed date:01/19/2025 01:58:14 PM Interpretation: Performing Lab: Notes/Report: HEMOGLOBIN A1C % (HH) 6.4 Reason For Referral No Information Medications Medication SIG (Take, Route, Frequency, Duration) Notes Start Date End Date Status Chlorthalidone 25 MG 1 tablet in the mor maria elena Orally Once a day Active Pantoprazole Sodium 20 MG 2 tablets Orally Once a day Not-Taking Ciclopirox Olamine 0.77 % 1 application to affected area Externally Twice a day for 30 days Active Acetaminophen 650 MG 1 tablet as needed Orally every 6 hrs PRN Active Aspirin 81 MG 1 tablet Orally Once a day Not-Taking Amiodarone HCl 200 MG 1 tablet Orally On ce a day Active Losartan Potassium 100 MG 1 tablet Orally Once a day Not-Taking Lisinopril & Diet Manage Prod Active Ammonium Lactate 12 % 1 application Externally to affected areas of skin to feet except for between the toes Twice a day for 30 days Active Advair Diskus 250-50 MCG/DOSE 1 puff Inhalation Twice a day Active Metoprolol Succinate 25 MG 1 capsule Orally Once a day Not-Taking Ultravate 0.05 % 1 application to affected area on feet Externally Once a day for 30 days Active Lisinopril-hydroCHLOROth iazide 2.5 mg Active Extra Depth Orthopedic Shoes, (1) Pair With (3) Pair Custom Heat Molded Multidensity Innersoles Dx: NIDDM/PVD(E11.51), Hammertoe Foot Deformity(M20.41,M20.42 ), Preulcerative Skin Lesion(s)(L85.1) Wear Daily for 365 days 01/19/2025 Active Rosuvastatin Calcium Active Probiotic Active traZODone HCl 50 MG 1 tablet at bedtime Orally Once a day Active Eliquis 5 MG as directed Orally twice daily Active metFORMIN HCl 1000 MG 1 tablet with a me al Orally Twice a day Active Immunizations Vaccine Route Administration Date Status Comme nts COVID-19 Pfizer BioNT[employer] Vaccine Unknown 10/01/2021 Administered 1st 12/05/2020 2nd 12/26/2020 Influenza Unknown 10/15/2021 Administered Social History Tobacco Use: Social History Observation [...] ast year? No Points 0 Interpretation Negative Problems Problem Type SNOMED Code ICD Code Onset Dates Problem Status W/U Status Risk Notes Problem Acquired hammer toe of right foot (3561157543058 105) Other hammer toe(s) (acquired), right foot (M20.41) Active confirmed Response to treatment,I mprovement Problem Type 2 diabetes mellitus with peripheral angiopathy (688494260) Type 2 diabetes mellitus with diabetic peripheral angiopathy without gangrene (E11.51) Active confirmed Problem Acquired hammer toe of left foot (0371368609734 103) Other hammer toe(s) (acquired), left foot (M20.42) Active confirmed Response to treatment,I mprovement Vital Signs Blood pressure diastolic 70 mm Hg 01/19/2025 Height 5 ft 7.5 in in 01/19/2025 Blood pressure systolic 130 mm Hg 01/19/2025 Weight 207 lbs 01/19/2025 BMI 31.94 kg/m2 01/19/2025 Procedures Procedure Date Ordered Date Performed Result Body Sit e 37163-QJZGZAZ NAIL, 6 OR MORE 03/10/2024 N/A 21525-GPPO SKIN LESIONS, OVER 4 03/10/2024 N/A 57396-BPHXGGO NAIL, 6 OR MORE 05/22/2024 N/A 56696-TLYF SKIN LESIONS, OVER 4 05/22/2024 N/A 21676-YOTZUBN NAIL, 6 OR MORE 07/24/2024 N/A 28468-LQIN SKIN LESIONS, OVER 4 07/24/2024 N/A 38940-UCBYPTA NAIL, 6 OR MORE 10/27/2024 N/A 79723-LGFN SKIN LESIONS, OVER 4 10/27/2024 N/A 30989-XIJYGIV NAIL, 6 OR MORE 01/19/2025 N/A 75301-AFHL SKIN LESIONS, OVER 4 01/19/2025 N/A Encounters Encounter Location Date Provider Diagnosis [address] [address] 03/10/2024 Jose Dpatty Mckeon Type 2 diabetes mellitus with diabetic peripheral angiopathy without gangrene E11.51 ; Tinea unguium B35.1 ; Pain in right toe(s) M79.674 and Pain in left toe(s) M79.675 [facility] [address] 05/22/2024 Jose Dpatty Mckeon Type 2 diabetes mellitus with diabetic peripheral angiopathy without gangrene E11.51 ; Tinea unguium B35.1 ; Pain in right toe(s) M79.674 and Pain in left toe(s) M79.[address] [address] 07/24/2024 Jose Dpatty Mckeon Type 2 diabetes mellitus with diabetic peripheral angiopathy without gangrene E11.51 ; Tinea unguium B35.1 ; Pain in right toe(s) M79.674 ; Pain in left toe(s) M79.675 and Xerosis of skin L85.[address] [address] 10/27/2024 Jose D Mckeon Type 2 diabetes mellitus with diabetic peripheral angiopathy without gangrene E11.51 ; Tinea unguium B35.1 ; Pain in right toe(s) M79.674 ; Pain in left toe(s) M79.675 and Xerosis of skin L85.[address] [address] 01/19/2025 Jose D Linda Type 2 diabetes mellitus with diabetic peripheral angiopathy without gangrene E11.51 ; Tinea unguium B35.1 ; Pain in right toe(s) M79.674 ; Pain in left toe(s) M79.675 ; Other hammer toe(s) (acquired), right foot M20.41 and Other hammer toe(s) (acquired), left foot M20.[address] [address] 01/13/2025 Jose D Mckeon Assessments Encounter Date Diagnosis (ICD Code) Assessment Notes Treatment Notes Treatment Clinical Notes Section Notes 03/10/2024 Type 2 diabetes mellitus with diabetic peripheral angiopathy without gangrene (ICD-10 - E11.51) 03/10/2024 Tinea unguium (ICD-10 - B35.1) 05/22/2024 Type 2 diabetes mellitus with diabetic peripheral angiopathy without gangrene (ICD-10 - E11.51) 05/22/2024 Tinea unguium (ICD-10 - B35.1) 07/24/2024 Type 2 diabetes mellitus with diabetic peripheral angiopathy without gangrene (ICD-10 - E11.51) 07/24/2024 Tinea unguium (ICD-10 - B35.1) 10/27/2024 Type 2 diabetes mellitus with diabetic peripheral angiopathy without gangrene (ICD-10 - E11.51) 10/27/2024 Tinea unguium (ICD-10 - B35.1) 01/19/2025 Type 2 diabetes mellitus with diabetic peripheral angiopathy without gangrene (ICD-10 - E11.51) 01/19/2025 Tinea unguium (ICD-10 - B35.1) 05/22/2024 Pain in right toe(s) (ICD-10 - M79.674) 01/19/2025 Pain in right toe(s) (ICD-10 - M79.674) 10/27/2024 Pain in right toe(s) (ICD-10 - M79.674) 07/24/2024 Pain in right toe(s) (ICD-10 - M79.674) 03/10/2024 Pain in right toe(s) (ICD-10 - M79.674) 03/10/2024 Pain in left toe(s) (ICD-10 - M79.675) 07/24/2024 Pain in left toe(s) (ICD-10 - M79.675) 05/22/2024 Pain in left toe(s) (ICD-10 - M79.675) 10/27/2024 Pain in left toe(s) (ICD-10 - M79.675) 01/19/2025 Pain in left toe(s) (ICD-10 - M79.675) 07/24/2024 Xerosis of skin (ICD-10 - L85.3) 10/27/2024 Xerosis of skin (ICD-10 - L85.3) 01/19/2025 Other hammer toe(s) (acquired), right foot (ICD-10 - M20.41) Patient Educated with: DIABETIC FOOT CARE INSTRUCTIONS.p df (DIABETIC FOOT CARE INSTRUCTIONS.p df) 01/19/2025 Other hammer toe(s) (acquired), left foot (ICD-10 - M20.42) Plan Of Treatment Pending Test Test Name Order Date 87315-QWEGYRA NAIL, 6 OR MORE 08/06/2014 88593-URIVSTZ NAIL, 6 OR MORE 11/09/2014 41261-KHTOBEK NAIL, 6 OR MORE 02/08/2015 93936-EDGJXAR NAIL, 6 OR MORE 05/13/2015 74679-JAUERDC NAIL, 6 OR MORE 08/16/2015 33045-HADHTSL NAIL, 6 OR MORE 12/02/2015 26281-XJPSATW NAIL, 6 OR MORE 03/02/2016 57695-QGYAVSW NAIL, 6 OR MORE 06/01/2016 15242-BNWDJNC NAIL, 6 OR MORE 08/10/2016 95443-CIQIYEW NAIL, 6 OR MORE 10/19/2016 12286-JKFPYXP NAIL, 6 OR MORE 12/28/2016 90404-MVSQREG NAIL, 6 OR MORE 03/08/2017 46344-KELUOCS NAIL, 6 OR MORE 05/14/2017 94505-YAJRCWN NAIL, 6 OR MORE 08/02/2017 70068-HSOGEUX NAIL, 6 OR MORE 10/18/2017 68336-ZFHLWHN NAIL, 6 OR MORE 01/03/2018 75569-DVSKRTK NAIL, 6 OR MORE 03/14/2018 08439-MWZUOTG NAIL, 6 OR MORE 05/16/2018 30459-TKIZPRF NAIL, 6 OR MORE 07/25/2018 20369-UOLKUNI NAIL, 6 OR MORE 10/14/2018 24312-AGFSPVE NAIL, 6 OR MORE 01/09/2019 45442-WXKBWQE NAIL, 6 OR MORE 03/17/2019 17879-HPWDUWE NAIL, 6 OR MORE 06/26/2019 42370-CNBPSHZ NAIL, 6 OR MORE 09/04/2019 52752-MBKOHKX NAIL, 6 OR MORE 11/17/2019 13028-LTOAGRH NAIL, 6 OR MORE 01/29/2020 08748-VJSHKFI NAIL, 6 OR MORE 05/06/2020 51949-ZUBRRZU NAIL, 6 OR MORE 12/30/2020 88337-UPTYJEW NAIL, 6 OR MORE 03/14/2021 17890-MSOVESW NAIL, 6 OR MORE 06/13/2021 27860-WPPSSCJ NAIL, 6 OR MORE 09/01/2021 26274-PEQYMOP NAIL, 6 OR MORE 11/21/2021 83976-ZHTFYQQ NAIL, 6 OR MORE 10/21/2020 59634-PNXSGPO NAIL, 6 OR MORE 02/02/2022 20533-RYGNXLC NAIL, 6 OR MORE 04/13/2022 02985-WVSRJGR NAIL, 6 OR MORE 06/26/2022 97522-SKKZDVM NAIL, 6 OR MORE 09/17/2022 77968-DOOVIQP NAIL, 6 OR MORE 11/27/2022 96017-OWHSPEO NAIL, 6 OR MORE 02/26/2023 67037-YOPFKAI NAIL, 6 OR MORE 05/14/2023 44299-PHVJMAD NAIL, 6 OR MORE 07/26/2023 78229-SJLMLNE NAIL, 6 OR MORE 10/08/2023 04435-VRMPUMF NAIL, 6 OR MORE 12/31/2023 01070-QYYPWZX NAIL, 6 OR MORE 03/10/2024 46375-YPDNJLQ NAIL, 6 OR MORE 05/22/2024 85817-GFDUWAF NAIL, 6 OR MORE 07/24/2024 87799-MJRMNFQ NAIL, 6 OR MORE 10/27/2024 81840-HZTPVSE NAIL, 6 OR MORE 01/19/2025 77403-Pvrivtzm Plate 07/26/2023 37332-Hodktqzt Plate 06/26/2022 04186-Cxztfoqu Plate 04/13/2022 16541-Eylzmeah Plate 10/21/2020 01800-Tylkexgw Plate 11/21/2021 03098-Rlyquisa Plate 05/06/2020 67038-Qzupmhwk Plate 06/26/2019 56746-Hujezjmc Plate 08/02/2017 13978-Neisrftr Plate 10/19/2016 66601-Sgdbqpky Plate 08/16/2015 44371-Nrnrybwb Plate 05/13/2015 71301-Dxjggnmj Plate 02/08/2015 20229-Itpqzsho Plate 11/09/2014 84406-Eegzicbv Plate 08/06/2014 94406-Oshpqvkf Plate 05/04/2014 09687-Tuzomwdu Plate Each Additional 01/2014 53727-Eaivxlqk Plate Each Additional 03/2014 59210-Qbnujvhz Plate Each Additional 06/2015 38056-Ptfggooi Plate Each Additional 08/2015 95529-Ukdrafrg Plate Each Additional 45538-Pdrhcbgj Plate Each Additional 61485 I&D ABSCESS- SIMPLE,SINGLE 018 27979-TBQK SKIN LESIONS, OVER 4 09/17/20 22 38773-CUZG SKIN LESIONS, OVER 4 02/27/20 23 88060-HSXI SKIN LESIONS, OVER 4 11/27/19 23 28498-LOFN SKIN LESIONS, OVER 4 10/27/19 25 20421-VSTI SKIN LESIONS, OVER 4 07/24/20 24 29181-ZBOY SKIN LESIONS, OVER 4 05/22/20 24 71276-YEOI SKIN LESIONS, OVER 4 03/10/20 24 44727-CICK SKIN LESIONS, OVER 4 12/31/19 24 75914-FUVE SKIN LESIONS, OVER 4 10/08/19 24 85472-LYWG SKIN LESIONS, OVER 4 07/26/20 23 09608-RSOO SKIN LESIONS, OVER 4 05/14/20 23 13788-FRMA SKIN LESIONS, OVER 4 01/20/20 Next Appt Details Provider Name:Jose D V Linda , 04/23/2025 12:45:00 PM, [address] [place], [address], Insurance Providers Payer Name Payer Address Payer Phone Subscriber Number Group Number Insured Name Patient Relationship to Insured Coverage Start Date Coverage End Date [employer] [address] [place] [address] [id number] Junior Reyes Self - patient is the insured Medical (General) History Medical History History ICD Code Arthritis Back,Hip,and Knee pain Cholesterol Diverticulosis Measles Osteoporosis High blood pressure Heart disease Reflux Cataracts Diabetic type ll Surgical History Surgery Date(Month/Year) Parathyroid 03/27/2012 install tube in right ear 2013 colonoscopy 03/06/2018 install left ear tube. 11/2018 knee surgery, left 09/08/2020 Cyst on right eyelid 05/2021 kidney surgery 07/22/2024 Hospitalization History Reason Date(Month/Year) CT Scan right kidney- small mass found [facility] Biopsy 02/2017 [facility], cough 09/2014
== END 2025-02-16 11:37 | disposition home or self-care (01) ==
LOC: HO.HPS 10:57
PROVIDERS: PCP Family Medicine; Visit Provider Internal Medicine
DX: J44.9 Chronic obstructive pulmonary disease, unspecified (principal); G47.33 Obstructive sleep apnea (adult) (pediatric); Z99.89 Dependence on other enabling machines and devices; R91.1 Solitary pulmonary nodule; R05.9 Cough, unspecified; J30.9 Allergic rhinitis, unspecified
CPT/HCPCS: 99213

== ENCOUNTER → 2025-02-16 10:56 | Outpatient (BNVA) | payer MEDICARE, SELFPAY | PROVIDERS: PCP Family Medicine; Visit Provider Internal Medicine | DX: J44.9 Chronic obstructive pulmonary disease, unspecified (principal); G47.33 Obstructive sleep apnea (adult) (pediatric); R91.1 Solitary pulmonary nodule; J30.9 Allergic rhinitis, unspecified; Z99.89 Dependence on other enabling machines and devices; Z87.891 Personal history of nicotine dependence | CPT/HCPCS: 99212 ==

== ENCOUNTER 2025-02-24 15:02 | Outpatient (AMB) | payer MEDICARE, SELFPAY ==
--- NOTE | 2025-02-24 15:13 | MHC.OFFVIS ---
Vital Signs 02/24/25 15:17 Height 5 ft 7 in Weight 211 lb 10.3 oz BMI 33.1 BP 132/62 Blood Pressure Location Lt brachial Position Sitting Pulse 79 Pulse Source Monitor Intake Visit Reasons: 1y f/up Intake Note: 1 yr f/y up Rn Clinical Trials Required: No Accompanied by: Self / Same As Patient Allergies cefepime Allergy (Intermediate, Verified 02/16/25 12:07) RASH/BLISTERS, rash metronidazole [From FLAGYL] Allergy (Intermediate, Verified 02/16/25 12:07) Rash Medication List - Last Reconciled 02/24/25 by Gilberto Olivares MD albuterol sulfate 2.5 mg (3 mL) inhalation Q4-6H PRN 30 days albuterol sulfate 90 mcg/actuation (ProAir HFA) 2 puffs inhalation Q4-6H PRN 30 days amiodarone 200 mg PO DAILY amlodipine 5 mg PO DAILY apixaban (Eliquis) 5 mg PO BID calcium carbonate (Tums) 200 mg PO TID PRN 30 days chlorthalidone 25 mg PO DAILY docusate sodium (Colace) 100 mg PO BID famotidine 20 mg PO BEDTIME fluticasone propionate 50 mcg/actuation 2 sprays intranasal DAILY PRN 90 days lisinopril 2.5 mg PO DAILY loratadine (Claritin) 10 mg PO DAILY PRN metformin 500 mg PO DAILY montelukast 10 mg PO DAILY rosuvastatin 5 mg PO DAILY sildenafil mg PO PRN tamsulosin 0.4 mg PO DAILY trazodone 50 mg PO BEDTIME Wixela Inhub 250-50 mcg/dose (fluticasone propion-salmeterol) 1 ea PO BID NS HPI Comments Details: Pleasant 80-year-old gentleman who is here for follow-up. He has background history of paroxysmal atrial fibrillation and has been on amiodarone along with beta danilo. He is on apixaban for anticoagulation. No bleeding issues. He is here for follow-up today. He is complaining that since December he has been feeling more short of breath. He said during winter time he was not active and mostly was sedentary. As he started doing activities he is more short of breath. He is denying chest discomfort. He is saying he may be can walk 1 block. He is saying his weight has been stable. His BMI is 36. 11/6/23: He is here for follow-up. He is saying that his pulse has been low in 40s when he has gone for other office visits. He is on amiodarone and metoprolol. His pulse by palpation is around 55-60. He has no symptoms. Denying chest discomfort, shortness of breath, dizziness or lightheadedness or fatigue. Taking medications regularly. 02/10/24: Here for follow-up. He is saying that he gets out of breath easily and gets fatigued easily. In his day-to-day life inside the house he has no issues but when he pushes himself he gets out of breath easily. He also has been bradycardic which has been noticed previously. His heart rate in the office is 42 with marked sinus bradycardia on EKG. He is on amiodarone for paroxysmal atrial fibrillation and metoprolol succinate 25 mg daily. Denying chest discomfort. 05/06/2024: He is here for follow-up. On last visit his heart rate was 42 beats per minute. He was on metoprolol and amiodarone. We stopped the metoprolol. He is saying since he stopped the metoprolol he feels more energetic. His heart rates are consistently in 50s to 60s. No dizziness or lightheadedness. No significant chest discomfort shortness of breath. Taking medications regularly. He is saying he did blood workup recently. He will check whether a TSH and LFT was in there otherwise he will get them done with us this is monitoring for amiodarone. 02/25/2020: He is here for follow-up had no chest pains. He is complaining of dyspnea on which he has worsened over the few months. He has interstitial lung disease and continues to follow up with pulmonology. He is on chronic amiodarone and has been closely followed for that. Clinically not in heart failure. [facility] Medical History Lobulation of kidney Cough COPD exacerbation Acute rhinosinusitis Obesity (BMI 30-39.9) Pulmonary nodule ABBY on CPAP COPD (chronic obstructive pulmonary disease) Allergic rhinitis Pneumonia Surgical History History of knee replacement (~08/2020) S/P skin biopsy H/O tympanostomy H/O colonoscopy History of parathyroidectomy History of esophagogastroduodenoscopy (EGD) Family History (Reviewed 02/24/25 @ 15:18 by Urszula Brewster [facility]) Father NIDDY (non-insulin dependent diabetes mellitus in young) Prostate cancer HTN (hypertension), benign Mother Bone cancer Breast cancer Maternal Grandmother CAD (coronary artery disease) Brother Rectal cancer Social History (Reviewed 02/24/25 @ 15:18 by Urszula Brewster [facility]) Alcohol intake: former Patient Tobacco Use Status: Former Tobacco user Years Smoked: 20 +/- Review of Systems Const Denies chills, Denies fatigue, Denies fever(s), Denies frequent falls, Denies weakness, Denies weight gain and Denies weight loss ENT Denies dizziness Card Denies chest pain, Denies leg edema, Denies lightheadedness, Denies palpitations, Denies dyspnea and Denies dyspnea on exertion Resp Denies cough, Denies dyspnea and Denies dyspnea on exertion GI Denies hematochezia Musc Denies abnormal gait, Denies muscle weakness, Denies numbness, Denies radiating pain into limb and Denies tingling Neuro Denies abnormal gait, Denies dizziness, Denies frequent falls, Denies numbness, Denies tingling and Denies weakness Endo Denies fatigue and Denies palpitations Physical Exam Vital Signs: Last Vital Signs Pulse 79 02/24/25 15:17 BP 132/62 02/24/25 15:17 BMI result Body Mass Index 33.1 GENERAL APPEARANCE: in no acute distress, well developed, well nourished. NECK/THYROID: no carotid bruit, no jugular venous distention. SKIN: no suspicious lesions, warm and dry. HEART: no murmurs, regular rate and rhythm, S1, S2 normal. LUNGS: ? Fine crackles both bases to approximately 1/3 lungs. ABDOMEN: normal, bowel sounds present, soft, nontender, nondistended. EXTREMITIES: no clubbing, cyanosis, or edema. PERIPHERAL PULSES: equal. NEUROLOGIC: nonfocal, alert and oriented. Office Procedures EKG Details: Sinus rhythm 79 beats per minute, right bundle-branch block, left axis deviation, inferior infarct, QTC 518 milliseconds. 54115-Twazxtzxtcxghdher, Complete Assessment & Plan Assessment & Plan (1) Atrial fibrillation: Code(s): I48.91 - Unspecified atrial fibrillation Category: Medical Qualifiers: Atrial fibrillation type: paroxysmal Qualified Code(s): I48.0 - Paroxysmal atrial fibrillation (2) HTN (hypertension), benign: Code(s): I10 - Essential (primary) hypertension Category: Medical (3) Therapeutic drug monitoring: Code(s): Z51.81 - Encounter for therapeutic drug level monitoring Category: Medical Plan Pleasant 80-year-old gentleman who is here for follow-up. He has known history of paroxysmal atrial fibrillation. He has been treated with amiodarone and has been in sinus rhythm. He was previously bradycardic and metoprolol was discontinued which has improved his heart rate. He feels better and more energetic. He has COPD and has chronic dyspnea. Clinically not in heart failure. No concerning chest discomfort or pain reported. On follow-up he is complaining that his breathing has worsened. Clinically not in heart failure. I have advised him to do an echocardiogram to start with and if there is no obvious abnormality then we will arrange exercise stress test for him. He continues to be on amiodarone and has background of lung disease and is closely followed up by pulmonology. We will do TSH and LFTs to monitor amiodarone. Thank you for allowing me to participate in the care of your patient. Please feel free to contact me if you have any questions. Orders: Orders TSH reflex Free T4 Today Z79.899 - Other retirement (current) drug therapy CA echo transthoracic complete Today R06.00 - Dyspnea, unspecified Liver Panel Today Z79.899 - Other manager intermediate (current) drug therapy Coding Level of Care Code Est Pt Level 4 (43970) Diagnoses Paroxysmal atrial fibrillation I48.0 Atrial fibrillation type: paroxysmal HTN (hypertension), benign I10 Therapeutic drug monitoring Z51.81 CPT Codes EKG - CPT: 41269-Ltllplthrnpdyjdpz, Complete ([id number])
[2025-02-24 15:17] VITALS: BP 132/62; PULSE 79; BMI 33.1
--- OUTSIDE RECORDS SUMMARY | 2025-02-24 15:46 | XMS_ITS | Clinical Summary ---
Author Organization [address] [facility] Address [address] [place] [address] Phone Care Team Providers Care Criminalist Technician Name Role Phone Physician, Pcp Unknown Primary [...] patient's age to complete this topic Insurance [facility] Care Teams Criminalist Technician Relationship Specialty Start Date End Date Physician, Pcp Unknown PCP - General 08/05/24
== END 2025-02-24 15:36 | disposition home or self-care (01) ==
LOC: HO.HCS 15:03
PROVIDERS: PCP Family Medicine; Visit Provider Internal Medicine Cardiovascular Disease
DX: I48.0 Paroxysmal atrial fibrillation (principal); I10 Essential (primary) hypertension; Z51.81 Encounter for therapeutic drug level monitoring
CPT/HCPCS: 93010; 99214

== ENCOUNTER 2025-02-24 15:02 | Outpatient (REF) | payer MEDICARE, SELFPAY ==
[2025-02-24 17:40] LABS: Alanine Aminotransferase 13 U/L (0-40); Albumin Level 4.1 g/dL (3.5-5.0); Alkaline Phosphatase 102 U/L (39-117); Aspartate Amino Transferase 20 U/L (5-37); Bilirubin Direct 0.2 mg/dL (0.0-0.5); Bilirubin Total 0.5 mg/dL (0.0-1.0)
[2025-02-24 17:57] LABS: TSH reflex Free T4 1.92 uIU/mL (0.32-4.0)
== END 2025-02-24 15:03 | disposition home or self-care (01) ==
LOC: HO.LAB 15:02
PROVIDERS: PCP Family Medicine; Visit Provider Internal Medicine Cardiovascular Disease
DX: I48.0 Paroxysmal atrial fibrillation (principal); I10 Essential (primary) hypertension; Z51.81 Encounter for therapeutic drug level monitoring; Z79.899 Other long term (current) drug therapy
CPT/HCPCS: 36415; 80076; 84443; 93005; 99212

== ENCOUNTER → 2025-03-30 10:44 | Outpatient (REF) | payer MEDICARE, SELFPAY ==
--- OUTSIDE RECORDS SUMMARY | 2025-01-29 07:15 | XMS_ITS ---
Author Organization [facility] Address [address] [place] [address] Care Team Providers Care Sales And Support Center Agent Name Role Phone Dmitriy Aguilar Primary Care Provider Unavailabl Jose D Gomez Unavailable [phone] Barnes Encounters Encounter Location Date Provider Diagnosis [address] [address] 01/29/2025 Jose D Mckeon Plan Of Treatment Next Appt Details Provider Name:Jose D Mckeon , 04/23/2025 12:45:00 PM, [address] [place] [address], [phone], Progress Notes * Junior OLIVEROSDOB:1945 (80 yo M)Acc No.[id number]:01/29/2025 Progress Note Patient: Junior CARR Provider: Riddhi Mckeon DPM :1945 A ge:79 Y S ex:Male Date:01/29/2025 Address:[address] [place] [address] [place], [id number] Pcp:Dmitriy Aguilar Subjective: * Chief Complaints: * 1 . [...] DPM Date: 0 01/29/2025 Generated for Rocío ramírez/Kanwal on: 0 03/30/2025 11:57 AM EDT
--- NOTE | 2025-03-30 10:47 | CA_ITS ---
Transthoracic Echocardiogram Patient (Last, First, Middle): Junior Reyes G Gender: Male Date of : 1945 Age: 80 Procedure Date: 03/30/2025 Procedure Type: Transthoracic Echocardiogram Location: OP Height: 170.18 cm Weight: 95.71 kg BSA: 2.07 m2 Heart Rate: bpm BP: 130 / 60 mmHg Before School Babysitter: TO/RC Referring MD: Gilberto Olivares MD Numerical Control Drill Press Operator: Gilberto Olivares MD Symptoms: R06.00 - Dyspnea, unspecified Study Quality: Fair Conclusions: - Normal left ventricular size and systolic function. There is mildly increased left ventricular wall thickness. The visually estimated ejection fraction is between 55-60%. - The mid inferoseptal segment is akinetic. - There is moderate dilatation of the sinuses of Valsalva measuring 4.80 cm and moderate dilatation of the ascending aorta measuring 4.60 cm. Findings Left Ventricle Normal left ventricular size and systolic function. There is mildly increased left ventricular wall thickness. The visually estimated ejection fraction is between 55-60%. There is evidence of regional wall motion abnormalities. Abnormal diastolic function is noted. Spectral Doppler is indicative of an impaired relaxation filling pattern. E/E prime ratio is between 8 and 15 consistent with indeterminate filling pressures. Wall Motion Rest Echo Findings The mid inferoseptal segment is akinetic. Right Ventricle Normal right ventricular cavity size and systolic function. Atria The left atrium is likely dilated. The right atrium was not well visualized. Aortic Valve There is a normal trileaflet aortic valve. There is mild calcification of the aortic valve. There is no aortic valve stenosis. There is trace (trivial) aortic valve regurgitation. Mitral Valve The mitral valve appears normal. There is trace mitral valve regurgitation. There is no mitral valve stenosis. Pulmonic Valve The pulmonic valve is likely normal. Tricuspid Valve Normal tricuspid valve structure. There is mild tricuspid valve regurgitation. Normal right atrial pressure. There is no evidence of pulmonary hypertension. Great Vessels There is moderate dilatation of the sinuses of Valsalva measuring 4.80 cm and moderate dilatation of the ascending aorta measuring 4.60 cm. The visualized portions of the pulmonary artery and branches are normal. Venous The inferior vena cava is normal in size and collapses greater than 50% with inspiration. Pericardium/Pleural There is no evidence of pericardial effusion. Prior Study Comparison Changes noted compared to prior study dated: 06/07/2022. 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 Measurements 2D Linear Measurements IVSd: 1.13 0.6-0.9/0.6-1.0 cm LVIDd: 4.72 3.9-5.3/4.2-5.9 cm LVIDd Index: 2.28 2.4-3.2/2.2-3.1 cm/m2 LVIDs: 3.15 2.0-3.6 cm LVPWd: 1.02 0.7-1.1 cm LA Diam: 3.50 2.7-3.8/3.0-4.0 cm LAIDs Index: 1.69 1.5-2.3 cm/m2 LV Mass: 227.85 67-162/88-224 g LV Mass Index: 110.07 43-95/49-115 g/m2 LVOT Diam: 2.30 3.0+(-)1.3 cm 2D Systolic Function EF 4C: 59.20 >55% EF 2C: 58.90 >55% EF BiP: 59.00 >55% Mitral Valve MV Pk E: 0.62 MV PK A: 0.98 MV Decel Time: 342.00 E/A: 0.60 E'Lateral: 6.15 E'Medial: 4.35 E/E' Med: 14.30 E/E' Lat: 10.10 PHT: 100.00 MVA PHT: 2.20 Decel Lawrence: 1.82 Aortic Valve AoV Pk Luciano: 1.57 AoV Mn Luciano: 1.05 AoV VTI: 0.30 AoV Pk Grad: 10.00 Aov Mn Grad: 5.00 BINA Cont.VTI: 3.74 LVOT LVOT Pk Luciano: 1.43 LVOT Mn Luciano: 0.84 LVOT VTI: 0.27 LVOT Pk Grad: 8.00 LVOT Mn Grad: 4.00 LVOT Diam: 2.30 LVOT Area: 4.15 Diastolic Function MV Pk E: 0.62 MV Pk A: 0.98 E/A: 0.60 E'Medial: 4.35 E/E' Med: 14.30 E' Laterial: 6.15 E/E' Lat: 10.10 Right Ventricle TAPSE (mm): 27.20 TVS' Luciano: 12.00 Tricuspid Valve TR Pk Luciano: 2.51 TR Pk Grad: 25.00 RA Press: 3.00 RVSP: 28.00 Great Vessels Aorta Sinus of Valsalva: 4.80 2.0-3.5 cm Ao Asc: 4.60 2.1-3.4 cm Ao Arch: 3.20 Updated in Other Vendor System with Status of Final Gilberto Olivares MD electronically signed on 03/31/2025 11:55:29 PM with status of Final
--- OUTSIDE RECORDS SUMMARY | 2025-03-30 11:58 | XMS_ITS | Clinical Summary ---
Author Organization [facility] Address [address] [place] [address] Phone Care Team Providers Care Raw Mill Operator Name Role Phone Dmitriy Aguilar DO Primary Care Provider [phone] Allergies Active Allergy Reactions Criticality Noted Date [...] Visit [facility] [address] [place] [address] Roman Leal MD [address] [facility] [address] [place] [address] Health Maintenance Due Date Last [...] patient's age to complete this topic Insurance [facility] Care Teams Raw Mill Operator Relationship Specialty Start Date End Date Dmitriy Aguilar DO [address] [place] [address] [phone] PCP - General Family Medicine 08/17/24
--- OUTSIDE RECORDS SUMMARY | 2025-03-30 11:58 | XMS_ITS | Patient Health Record ---
Author Organization [facility] Address [address] [place] [id number] Care Team Providers Care Meatcutter Name Role Phone Esteban Luu Jr Reason For Referral No Information Plan Of Treatment No Information
--- OUTSIDE RECORDS SUMMARY | 2025-03-30 11:58 | XMS_ITS | Clinical Summary ---
Author Organization [facility] Address [address] [place] [address] Phone Care Team Providers Care Inside Plant Supervisor Name Role Phone Physician, Pcp Unknown Primary [...] patient's age to complete this topic Insurance [facility] Care Teams Inside Plant Supervisor Relationship Specialty Start Date End Date Physician, Pcp Unknown PCP - General 08/05/24
== END ==
LOC: HO.CARD 10:44
PROVIDERS: PCP Family Medicine; Visit Provider Internal Medicine Cardiovascular Disease
DX: R06.00 Dyspnea, unspecified (principal)
CPT/HCPCS: 93306

== ENCOUNTER → 2025-03-30 10:47 | Outpatient (BNV) | payer MEDICARE, SELFPAY | PROVIDERS: PCP Family Medicine; Visit Provider Internal Medicine Cardiovascular Disease | DX: I71.21 Aneurysm of the ascending aorta, without rupture (principal); I35.8 Other nonrheumatic aortic valve disorders; I51.89 Other ill-defined heart diseases; I36.1 Nonrheumatic tricuspid (valve) insufficiency | CPT/HCPCS: 93306 ==

== ENCOUNTER 2025-05-19 14:52 | Outpatient (AMB) | payer MEDICARE, SELFPAY ==
--- OUTSIDE RECORDS SUMMARY | 2025-02-16 09:30 | XMS_ITS ---
Author Organization [facility] [place] Address [address] [place] [address] Care Team Providers Care Sales Team Member Name Role Phone Rach Dubois Primary Care Provider Unavailabl Jose D Gomez Unavailable [phone] Dmitriy Aguilar Unavailable Unavailable Encounters Encounter Location Date Provider Diagnosis [address] [address] 02/16/2025 Jose D Mckeon Plan Of Treatment Next Appt Details Provider Name:Jose D Mckeon , 07/23/2025 01:45:00 PM, [address] [place] [address], [phone], Progress Notes * Junior OLIVEROSDOB:1945 (80 yo M)Acc No.[id number]:02/16/2025 Progress Note Patient: Junior CARR Provider: Riddhi Mckeon DPM :1945 A ge:80 Y S ex:Male Date:02/16/2025 Address:[address] [place] [address] [place], [id number] Pcp:Rach Dubois Subjective: * Chief Complaints: * [...] 0 02/16/2025 Generated for Rocío ramírez/Karan/Jillian on: 0 05/19/2025 03:48 PM EDT
--- NOTE | 2025-05-19 15:25 | A.OFFVIS_ITS ---
Vital Signs 05/19/25 15:26 Height 5 ft 7 in Weight 205 lb 7.533 oz BMI 32.2 BP 130/72 Blood Pressure Location Rt brachial Position Sitting Pulse 60 Pulse Source Monitor Intake Visit Reasons: 3 mth -echo/lab Intake Note: 3 mth fup-echo Logistics Tech Required: No Accompanied by: Self / Same As Patient Allergies cefepime Allergy (Intermediate, Verified 02/16/25 12:07) RASH/BLISTERS, rash metronidazole (From FLAGYL) Allergy (Intermediate, Verified 02/16/25 12:07) Rash Medication List - Last Reconciled 05/19/25 by Gilberto Olivares MD albuterol sulfate 2.5 mg (3 mL) inhalation Q4-6H PRN 30 days albuterol sulfate 90 mcg/actuation 2 puffs inhalation Q4-6H PRN amiodarone 200 mg PO DAILY amlodipine 5 mg PO DAILY apixaban (Eliquis) 5 mg PO BID calcium carbonate (Tums) 200 mg PO TID PRN 30 days chlorthalidone 25 mg PO DAILY docusate sodium (Colace) 100 mg PO BID famotidine 20 mg PO BEDTIME fluticasone propionate 50 mcg/actuation 2 sprays intranasal DAILY PRN 90 days lisinopril 2.5 mg PO DAILY loratadine (Claritin) 10 mg PO DAILY PRN metformin 500 mg PO DAILY montelukast 10 mg PO DAILY rosuvastatin 5 mg PO DAILY sildenafil mg PO PRN tamsulosin 0.4 mg PO DAILY trazodone 50 mg PO BEDTIME Wixela Inhub 250-50 mcg/dose (fluticasone propion-salmeterol) 1 inh inhalation Q12H NS HPI Comments Details: Pleasant 80-year-old gentleman who is here for follow-up. He has background history of paroxysmal atrial fibrillation and has been on amiodarone along with beta danilo. He is on apixaban for anticoagulation. No bleeding issues. 08/05/23: He is here for follow-up. He is saying that his pulse has been low in 40s when he has gone for other office visits. He is on amiodarone and metoprolol. His pulse by palpation is around 55-60. He has no symptoms. De nying chest discomfort, shortness of breath, dizziness or lightheadedness or fatigue. Taking medications regularly. 02/10/24: Here for follow-up. He is saying that he gets out of breath easily and gets fatigued easily. In his day-to-day life inside the house he has no issues but when he pushes himself he gets out of breath easily. He also has been bradycardic which has been noticed previously. His heart rate in the office is 42 with marked sinus bradycardia on EKG. He is on amiodarone for paroxysmal atrial fibrillation and metoprolol succinate 25 mg daily. Denying chest discomfort. 05/06/2024: He is here for follow-up. On last visit his heart rate was 42 beats per minute. He was on metoprolol and amiodarone. We stopped the metoprolol. He is saying since he stopped the metoprolol he feels more energetic. His heart rates are consistently in 50s to 60s. No dizziness or lightheadedness. No significant chest discomfort shortness of breath. Taking medications regularly. He is saying he did blood workup recently. He will check whether a TSH and LFT was in there otherwise he will get them done with us this is monitoring for amiodarone. 02/25/2020: He is here for follow-up had no chest pains. He is complaining of dyspnea on which he has worsened over the few months. He has interstitial lung disease and continues to follow up with pulmonology. He is on chronic amiodaron e and has been closely followed for that. Clinically not in heart failure. 05/19/2025: He is here for follow-up. He underwent echocardiography which showed preserved LV function but did show inferoseptal wall akinesis in the mid segment. He is saying that his breathing has worsened but it is unclear whether this is related to with the hot weather and he immediately. He is denying any chest discomfort. [facility] Medical History Lobulation of kidney Cough COPD exacerbation Acute rhinosinusitis Obesity (BMI 30-39.9) Pulmonary nodule ABBY on CPAP COPD (chronic obstructive pulmonary disease) Allergic rhinitis Pneumonia Surgical History History of knee replacement (~08/2020) S/P skin biopsy H/O tympanostomy H/O colonoscopy History of parathyroidectomy History of esophagogastroduodenoscopy (EGD) Family History Father NIDDY (non-insulin dependent diabetes mellitus in young) Prostate cancer HTN (hypertension), benign Mother Bone cancer Breast cancer Maternal Grandmother CAD (coronary artery disease) Brother Rectal cancer Social History Alcohol intake: former Patient Tobacco Use Status: Former Tobacco user Years Smoked: 20 +/- Review of Systems Const Denies chills, Denies fatigue, Denies fever(s), Denies frequent falls, Denies weakness, Denies weight gain and Denies weight loss ENT Denies dizziness Card Denies chest pain, Denies leg edema, Denies lightheadedness, Denies palpitations, Denies dyspnea and Denies dyspnea on exertion Resp Denies cough, Denies dyspnea and Denies dyspnea on exertion GI Denies hematochezia Musc Denies abnormal gait, Denies muscle weakness, Denies numbness, Denies radiating pain into limb and Denies tingling Neuro Denies abnormal gait, Denies dizziness, Denies frequent falls, Denies numbness, Denies tingling and Denies weakness Endo Denies fatigue and Denies palpitations Physical Exam Vital Signs: Last Vital Signs Pulse 60 05/19/25 15:26 BP 130/72 05/19/25 15:26 BMI result Body Mass Index 32.2 GENERAL APPEARANCE: in no acute distress, well developed, well nourished. NECK/THYROID: no carotid bruit, no jugular venous distention. SKIN: no suspicious lesions, warm and dry. HEART: no murmurs, regular rate and rhythm, S1, S2 normal. LUNGS: ? Fine crackles both bases to approximately 1/3 lungs. ABDOMEN: normal, bowel sounds present, soft, nontender, nondistended. EXTREMITIES: no clubbing, cyanosis, or edema. PERIPHERAL PULSES: equal. NEUROLOGIC: nonfocal, alert and oriented. Office Procedures EKG Details: Sinus rhythm 60 beats per minute, first-degree AV block with CA interval 224 milliseconds, normal axis, left ventricular hypertrophy, QTC 468 milliseconds. [id number], Complete Assessment & Plan Assessment & Plan (1) Atrial fibrillation: Code(s): I48.91 - Unspecified atrial fibrillation Category: Medical Qualifiers: Atrial fibrillation type: paroxysmal Qualified Code(s): I48.0 - Paroxysmal atrial fibrillation (2) HTN (hypertension), benign: Code(s): I10 - Essential (primary) hypertension Category: Medical (3) Therapeutic drug monitoring: Code(s): Z51.81 - Encounter for therapeutic drug level monitoring Category: Medical Plan Pleasant 80-year-old gentleman who is here for follow-up. He has known history of paroxysmal atrial fibrillation. He has been treated with amiodarone and has been in sinus rhythm. He was previously bradycardic and metoprolol was discontinued which has improved his heart rate. He feels better and more energetic. He has COPD and has chronic dyspnea. Clinically not in heart failure. No concerning chest discomfort or pain reported. On follow-up he is complaining that his breathing has worsened. Clinically not in heart failure. His echocardiography has shown mid inferoseptal akinesis. He does have worsening symptoms at this point. We discussed about coronary CTA versus a diagnostic cardiac catheterization. After discussion we have decided to do a coronary CTA. We will arrange this for him soon. Thank you for allowing me to participate in the care of your patient. Please feel free to contact me if you have any questions. Orders: Orders Basic Metabolic Panel Today R06.00 - Dyspnea, unspecified CT Cardiac Coronary Angio Today R06.00 - Dyspnea, unspecified Coding Level of Care Code Est Pt Level 4 (57749) Diagnoses Paroxysmal atrial fibrillation I48.0 Atrial fibrillation type: paroxysmal HTN (hypertension), benign I10 Therapeutic drug monitoring Z51.81 CPT Codes EKG - CPT: 17392-[id number], Complete ([id number])
[2025-05-19 15:26] VITALS: BP 130/72; PULSE 60; BMI 32.2
--- OUTSIDE RECORDS SUMMARY | 2025-05-19 15:48 | XMS_ITS | Clinical Summary ---
Author Organization [facility] Address [address] [place] [address] Phone Care Team Providers Care Extractor Operator Solvent Process Name Role Phone Physician, Pcp Unknown Primary Care Provider Brianna vailable Social History Tobacco Use Types Packs/Day Years Used Date Smoking Tobacco: Never Assessed Sex and Gender Information Value Date Recorded Sex Assigned at Not on file Legal Sex Male 9:26 AM EST Gender Identity Not on file Sexual Orientation Not on file Plan of Treatment Health Maintenance Due Date Last Done Comments DTaP,Tdap,and Td Vaccines (1 - Tdap) 1964 Pneumococcal Vaccine: 50+ Ye ars (1 of 1 - PCV) 02/14/1996 Zoster Vaccines (1 of 2) 02/14/1996 RSV Immunization Adult Patie nts (1 - 1-dose 75+ series) 2021 COVID-19 Vaccine ( - 2023-2 5 season) 2024 Cholesterol Screening (Lipid Panel) 08/05/2024 Falls Risk Assessment 08/05/2024 Hepatitis C Screening 08/05/2024 Social Influencers of Health Screening 08/05/2024 Depression Screening 09/30/2024 Influenza Vaccine (#1) 2025 HIB Vaccines Aged Out No longer [...] patient's age to complete this topic Insurance [facility] Care Teams Extractor Operator Solvent Process Relationship Specialty Start Date End Date Physician, Pcp Unknown PCP - General 08/05/24
--- OUTSIDE RECORDS SUMMARY | 2025-05-19 15:49 | XMS_ITS | Patient Health Record ---
Author Organization [facility] Address [address] [place] [id number] Care Team Providers Care Cleat Thrower Name Role Phone Esteban Luu Jr Reason For Referral No Information Plan Of Treatment No Information
--- OUTSIDE RECORDS SUMMARY | 2025-05-19 15:49 | XMS_ITS | Clinical Summary ---
Author Organization [facility] Address [address] [place] [address] Phone Care Team Providers Care Armored Car Guard And Driver Name Role Phone Dmitriy Aguilar DO Primary Care Provider [phone] Allergies Active Allergy Reactions Criticality Noted Date [...] time each day 135 tablet 3 4 Active Active Problems Problem Noted Date Diagnosed [...] Care Team (Late st Contact Info) Description 09/09/2025 2:30 PM EST Office Visit [facility] [address] [place] [address] Roman Leal MD [address] [facility] [address] [place] [id number] Health Maintenance Due Date Last Done Comments Diabetes: Hemoglobin A1C 10/31/2021 Diabetes: Ophthalmology Exam 10/31/2021 Diabetes: Pedal Pulse Checked 10/31/2021 Diabetes: Sensory Foot Exam 10/31/2021 Diabetes: Visual Foot Exam 10/31/2021 Pneumococcal Vaccine: 50+ Years (2 of 2 - PCV) 05/11/2023 05/11/2022, 03/25/2014 Influenza Vaccine (#1) 2025 3, 08/02/2022, 10/24/2021, Additional history exists Pneumococcal Vaccine: Peds (0 to 5 Years) and At-Risk Patients (6 to 49 Years) Discontinued 05/11/2022, 03/25/2014 Hepatitis B Vaccine Aged Out No longe r eligible based on patient's age to complete this topic Insurance [facility] Care Teams Armored Car Guard And Driver Relationship Specialty Start Date End Date Dmitriy Aguilar DO [address] [place] [address] [phone] PCP - General Family Medicine 08/17/24
== END 2025-05-19 16:09 | disposition home or self-care (01) ==
LOC: HO.HCS 14:52
PROVIDERS: PCP Family Medicine; Visit Provider Internal Medicine Cardiovascular Disease
DX: I48.0 Paroxysmal atrial fibrillation (principal); I10 Essential (primary) hypertension; Z51.81 Encounter for therapeutic drug level monitoring
CPT/HCPCS: 93010; 99214

== ENCOUNTER → 2025-05-19 14:52 | Outpatient (BNVA) | payer MEDICARE, SELFPAY | PROVIDERS: PCP Family Medicine; Visit Provider Internal Medicine Cardiovascular Disease | DX: I44.0 Atrioventricular block, first degree (principal); I49.1 Atrial premature depolarization; I48.0 Paroxysmal atrial fibrillation; I10 Essential (primary) hypertension; R06.00 Dyspnea, unspecified; Z51.81 Encounter for therapeutic drug level monitoring; Z79.01 Long term (current) use of anticoagulants | CPT/HCPCS: 93005; 99212 ==

== ENCOUNTER 2025-06-16 10:52 | Outpatient (REF) | payer MEDICARE, SELFPAY ==
--- NOTE | ~2025-06-16 | XR_ITS ---
EXAMINATION: XR CHEST CLINICAL INFORMATION: J44.9 - Chronic obstructive pulmonary disease, unspecified COMPARISON: June 06, 2022. TECHNIQUE: PA and lateral views FINDINGS: Pulmonary reticular nodular pattern involving mostly the mid to lower hemithoraces. No hyperinflation. Low lung volume. No pleural effusion. No pneumothorax. Cardiomediastinal silhouette size demonstrates a calcified aortic arch and prominent ascending aorta. There is a round cardiac apex. Multilevel spondylosis. Osteopenia versus osteoporosis. Degenerative changes in the right shoulder. XR/XR chest 2V IMPRESSION: Chronic interstitial lung disease, pulmonary fibrosis should be considered. Probable ectasia, ascending thoracic aorta. Multilevel spondylosis. Degenerative changes, right glenohumeral joint. Electronically signed by: Guevara Marie MD 06/16/2025 12:11 PM EDT
== END 2025-06-16 10:53 | disposition home or self-care (01) ==
LOC: HO.XRAY 10:52
PROVIDERS: PCP Nurse Practitioner Adult Health; Visit Provider Internal Medicine
DX: J44.9 Chronic obstructive pulmonary disease, unspecified (principal); G47.33 Obstructive sleep apnea (adult) (pediatric); R91.1 Solitary pulmonary nodule; T46.2X5A Adverse effect of other antidysrhythmic drugs, initial encounter; R05.9 Cough, unspecified; Z79.899 Other long term (current) drug therapy; Z79.1 Long term (current) use of non-steroidal anti-inflammatories (NSAID); Z99.89 Dependence on other enabling machines and devices; Z87.891 Personal history of nicotine dependence
CPT/HCPCS: 71046; 99212

== ENCOUNTER 2025-06-16 10:52 | Outpatient (AMB) | payer MEDICARE, SELFPAY ==
--- OUTSIDE RECORDS SUMMARY | 2025-01-29 07:15 | XMS_ITS ---
Author Organization [facility]omal [place] Address [address] [place] [address] Care Team Providers Care Calibration Specialist Name Role Phone Rach Dubois Primary Care Provider Unavailabl Jose D Gomez Unavailable [phone] Dmitriy Aguilar Unavailable Unavailable REASON FOR VISIT Dr Barnes Encounters Encounter Location Date Provider Diagnosis [address] [address] 01/29/2025 Jose D Mckeon Plan Of Treatment Next Appt Details Provider Name:Jose D Mckeon , 07/23/2025 01:45:00 PM, [address] [place] [address], [phone], Progress Notes * Junior OLIVEROSDOB:1945 (80 yo M)Acc No.[id number]:01/29/2025 Progress Note Patient: Junior CARR Provider: Riddhi Mckeon DPM :1945 A ge:79 Y S ex:Male Date:01/29/2025 Address:[address] [place] [address] [place], [id number] Pcp:Rach Dubois Subjective: * Chief Complaints: * [...] 0 01/29/2025 Generated for Rocío ramírez/Karan/Jillian on: 0 06/16/2025 01:49 PM EDT
--- OUTSIDE RECORDS SUMMARY | 2025-02-16 09:30 | XMS_ITS ---
Author Organization [facility] [place] Address [address] [place] [address] Care Team Providers Care Ticket Chopper Assembler Name Role Phone Rach Dubois Primary Care Provider Unavailabl Jose D Gomez Unavailable [phone] Dmitriy Aguilar Unavailable Unavailable Encounters Encounter Location Date Provider Diagnosis [address] [address] 02/16/2025 Jose D Mckeon Plan Of Treatment Next Appt Details Provider Name:Jose D Mckeon , 07/23/2025 01:45:00 PM, [address] [place] [address], [phone], Progress Notes * Junior OLIVEROSDOB:1945 (80 yo M)Acc No.[id number]:02/16/2025 Progress Note Patient: Junior CARR Provider: Riddhi Mckeon DPM :1945 A ge:80 Y S ex:Male Date:02/16/2025 Address:[address] [place] [address] [place], [id number] Pcp:Rach Dubois Subjective: * Chief Complaints: * [...] 02/16/2025 Generated for Rocío ramírez/Karan/Jillian on: 0 06/16/2025 01:49 PM EDT
[2025-06-16 11:09] VITALS: BP 118/62; PULSE 64; O2SAT 96; BMI 32.3
--- NOTE | 2025-06-16 11:09 | A.OFFVIS_ITS ---
Vital Signs 06/16/25 11:09 Height 5 ft 7 in Weight 206 lb 2.115 oz BMI 32.3 BP 118/62 Blood Pressure Location Lt brachial Position Sitting Pulse 64 Pulse Source Pulse Oximeter Pulse Oximetry (%) 96 Oxygen Delivery Method Room Air Intake Visit Reasons: COPD Intake Note: pt is here for follow up and he is feeling alright, some short of breath with walking in from parking lot, carrying things he has noticed a difference, cpap is going on. Registered Nurse Cardiac Required: No Allergies cefepime Allergy (Intermediate, Verified 06/16/25 11:15) RASH/BLISTERS, rash metronidazole (From FLAGYL) Allergy (Intermediate, Verified 06/16/25 11:15) Rash Medication List - Last Reconciled 06/16/25 by Kylee Middleton MD albuterol sulfate 2.5 mg (3 mL) inhalation Q4-6H PRN 30 days albuterol sulfate 90 mcg/actuation 2 puffs inhalation Q4-6H PRN amiodarone 200 mg PO DAILY amlodipine 5 mg PO DAILY apixaban (Eliquis) 5 mg PO BID calcium carbonate (Tums) 200 mg PO TID PRN 30 days chlorthalidone 25 mg PO DAILY docusate sodium (Colace) 100 mg PO BID famotidine 20 mg PO BEDTIME fluticasone propionate 50 mcg/actuation 2 sprays intranasal DAILY PRN 90 days lisinopril 2.5 mg PO DAILY loratadine (Claritin) 10 mg PO DAILY PRN metformin 500 mg PO DAILY montelukast 10 mg PO DAILY rosuvastatin 5 mg PO DAILY sildenafil mg PO PRN tamsulosin 0.4 mg PO DAILY trazodone 50 mg PO BEDTIME Wixela Inhub 250-50 mcg/dose (fluticasone propion-salmeterol) 1 inh inhalation Q12H NS Do you need a note to return to daycare/school/sports/work: No HPI HPI COPD: Details: Mr. Reyes , 80 years old gentleman is a longstanding case of allergic rhinitis, asthma / COPD as well as obstructive sleep apnea. He uses CPAP very regularly every night and sleeps well. Does not have any issues with the CPAP device. His asthma/COPD is remaining under control but lately during the change in weather months he is having increased cough especially in the morning hours. He is able to expectorates small amounts of clear phlegm He has increased nasal congestion . This patient is on amiodarone for control of paroxysmal atrial fibrillation., under is a concern of possible interstitial lung disease. [facility] Medical History (Updated 06/16/25 @ 13:36 by Kylee Middleton MD) Amiodarone pulmonary toxicity Lobulation of kidney Cough COPD exacerbation Acute rhinosinusitis Obesity (BMI 30-39.9) Pulmonary nodule ABBY on CPAP COPD (chronic obstructive pulmonary disease) Allergic rhinitis Pneumonia Surgical History History of knee replacement (~08/2020) S/P skin biopsy H/O tympanostomy H/O colonoscopy History of parathyroidectomy History of esophagogastroduodenoscopy (EGD) Family History Father NIDDY (non-insulin dependent diabetes mellitus in young) Prostate cancer HTN (hypertension), benign Mother Bone cancer Breast cancer Maternal Grandmother CAD (coronary artery disease) Brother Rectal cancer Social History Alcohol intake: former Patient Tobacco Use Status: Former Tobacco user Years Smoked: 20 +/- Review of Systems Const All systems reviewed & are unremarkable except as noted in HPI and below Denies weakness Eyes Reports no additional complaints ENT Denies dizziness and Reports nasal congestion (Off and on) Card Denies chest pain, Denies chest pain with activity, Reports irregular heart rhythm, Reports leg edema, Reports lightheadedness and Reports dyspnea on exertion (One or 2 blocks) Resp Reports cough (Mild only associated with postnasal drip) and Reports dyspnea on exertion (One or 2 blocks) GI Reports no additional complaints Reports no additional complaints Neuro Denies dizziness and Denies weakness Physical Exam Vital Signs: Last Vital Signs Pulse 64 06/16/25 11:09 BP 118/62 06/16/25 11:09 Pulse Ox 96 06/16/25 11:09 Oxygen Delivery Method Room Air 06/16/25 11:09 BMI result Body Mass Index 32.3 Const General: comfortable, no acute distress, alert and awake Orientation/consciousness: patient oriented x3 HEENT Head: Yes normal to inspection General nose exam: No nasal polyps present, No nasal discharge present and Other nasal findings present (MILD DO BILATERAL NASAL CONGESTION) Face and sinus: Yes sinuses nontender Mouth: oropharynx normal and other (There is moderate degree of nasal congestion, and post pharyngeal mucous) Throat: Yes posterior oropharynx normal Eyes General: appearance normal, both eyes and all related structures Eyelids: Yes other (RIGHT LOWER EYELID IS READ, HAS HAD RECENT SURGERY) Neck Neck: Yes normal visual inspection, Yes no lymphadenopathy, Yes trachea midline and Yes no JVD Thyroid: Thyroid normal Chest Chest palpation & inspection: normal inspection of the chest, normal palpation of entire chest wall and no tenderness Resp Other: BREATH SOUNDS ARE DISTANT AND ESPECIALLY DIMINISHED OVER THE BASILAR AREAS. CHEST AUSCULTATION REVEALS BREATH SOUNDS TO BE DISTANT, INSPIRATORY WHEEZES/CREPS OVER THE MID CHEST ON BOTH SIDES . ANY DEEP BREATH MAKES HIM COUGH. Cardio Palpation: normal PMI Rate: regular rate Rhythm: regular rhythm Heart sounds: no gallops and no murmurs GI Palpation (GI): Soft to palpation, nontender, No hepatosplenomegaly present, no masses and Other GI palpation findings present (ABDOMEN IS OBESE AND PROTUBERANT) Auscultation: normal bowel sounds Back/Spine/Pelvis Thoracic/Lumbar Spine: thoracic and lumbar spine normal to inspection Skin General skin exam: no rashes or lesions noted Neuro General: patient oriented x3 and no focal motor deficits Cranial nerves: Yes CN's II-XII intact bilaterally Extrem General: Yes normal to inspection, No no joint enlargement (Left knee status post TKR.), Yes no clubbing, cyanosis or edema and Yes no calf tenderness Psych Appearance: grossly normal Speech and movement: Normal speech and movement present Results Reviewed Results Reviewed: COMPLIANCE REPORT FOR THE USE OF CPAP SHOWS THAT HE HAS BEEN USING EVERY NIGHT EXCEPT FOR 1 NIGHT IN THE WHOLE MONTH. AVERAGE USAGE PER NIGHT IS 8 HOURS 4 MINUTES. HE HAS MILD AIR LEAK ISSUE. RESIDUAL AHI ONLY 0.6 Assessment & Plan Assessment & Plan (1) COPD (chronic obstructive pulmonary disease): Comment: CHRONIC OBSTRUCTIVE PULMONARY DISEASE WITH ASTHMATIC COMPONENT, . HAS REMAINED FAIRLY WELL STABLE HE HAS PERIODS OF INCREASED COUGH AND SOME SHORTNESS OF BREATH, BASICALLY AGGRAVATED BY UPPER AIRWAY ALLERGIES. Code(s): J44.9 - Chronic obstructive pulmonary disease, unspecified Category: Medical Plan: CONTINUE USING WIXELA 250-51 INHALATION B.I.D. ALBUTEROL HFA 2 PUFFS Q 6 HOURS P.R.N. OR ALBUTEROL SOLUTION IN THE NEBULIZER Q 6 HOURS P.R.N. (2) Cough: Comment: HIS CHRONIC COUGH, COMES IN BOUTS, SOMETIME IN THE MORNING AND SOMETIME WHEN HE GOES OUTDOORS. IT IS DUE TO COMBINATION OF HIS ASTHMA/COPD, AND ALLERGIC RHINITIS. IT IS SOMEWHAT MORE PROMINENT IN THE LAST FEW WEEKS. NO FEVER OR CHILLS. Code(s): R05.9 - Cough, unspecified Category: Medical Plan: I ORDERED A CHEST X-RAY TO MAKE SURE THERE IS NO INTRINSIC LUNG DISEASE. ADVISED HIM TO CONTROL HIS UPPER AIRWAY ALLERGIES WITH CONTINUED USE OF MEDS USE LORATADINE 10 MG ONCE A DAY MORE REGULARLY. WILL CHECK HIS CHEST X-RAY AND THEN DECIDE IF HE SHOULD HAVE FURTHER STUDIES LIKE CT SCAN OF THE LUNGS. * I REVIEWED THE FINDINGS OF CHEST X-RAY, ILD. IS REPORTED. WILL GO AHEAD AND ORDER A CT SCAN OF THE CHEST FOR FURTHER EVALUATION. (3) ABBY on CPAP: Comment: NASAL PILLOWS , he has been using the CPAP very regularly, Likes nasal pillows ,comfortable , does not even use Flonase before putting on the CPAP. Very compliant , and benefitting , No issues . Code(s): G47.33 - Obstructive sleep apnea (adult) (pediatric); Z99.89 - Dependence on other enabling machines and devices Category: Medical Plan: COMMENDED FOR GOOD COMPLIANCE AND ADVISED TO CONTINUE USING THE CPAP REGULARLY (4) Pulmonary nodule: Comment: Chronic , in LT. lower lobe , benign as per b/x in [address] scan in 2019 . This nodule was not seen A few new, small nodules were seen , less than 4 mm . He is a low risk case Code(s): R91.1 - Solitary pulmonary nodule Category: Medical Plan: NO NEED TO CONTINUE SCREENING Orders: Orders CT chest wo con - High Res Today J44.9 - Chronic obstructive pulmonary disease, unspecified, J98.4 - Other disorders of lung, R05.9 - Cough, unspecified, T46.2X5A - Adverse effect of other antidysrhythmic drugs, initial encounter XR chest 2V Today J44.9 - Chronic obstructive pulmonary disease, unspecified, R05.9 - Cough, unspecified Coding Level of Care Code Est Pt Level 4 (41922) Diagnoses COPD (chronic obstructive pulmonary disease) J44.9 Cough R05.9 ABBY on CPAP G47.33; Z99.89 Pulmonary nodule R91.1
--- OUTSIDE RECORDS SUMMARY | 2025-06-16 13:49 | XMS_ITS | Patient Health Record ---
Author Organization [facility] Rosmery komal Genaro Address [address] [place] [address] Care Team Providers Care Engineering Agent Name Role Phone Silvino Rach Primary Care Provider Jose D Ceron Unavailable [phone] Dmitriy Aguilar Unavailable Unavailable Allergies Allergen (clinical drug ingredient) Drug/Non Drug Allergy documented on EMR Reaction Allergy Type Onset Date Status cefepime Cefepime HCl Unknown Drug Allergy Acti ve metronidazole Flagyl Unknown Drug Allergy Act arie Results Component Value Reference Range Notes HEMOGLOBIN A1C (GLYCOHEMOGLO BIN) Reviewed date:01/19/2025 01:58:14 PM Interpretation: Performing Lab: Notes/Report: HEMOGLOBIN A1C % (HH) 6.4 Reason For Referral No Information Medications Medication SIG (Take, Route, Frequency, Duration) Notes Start Date End Date Status Chlorthalidone 25 MG 1 tablet in the mor maria elena Orally Once a day Active Losartan Potassium 100 MG 1 tablet Orally Once a day Not-Taking Ciclopirox Olamine 0.77 % 1 application to affected area Externally Twice a day; Duration: 30 days Active Acetaminophen 650 MG 1 tablet as needed Orally every 6 hrs PRN Active Metoprolol Succinate 25 MG 1 capsule Orally Once a day Not-Taking Amiodarone HCl 200 MG 1 tablet Orally On ce a day Active Aspirin 81 MG 1 tablet Orally Once a day Not-Taking Lisinopril & Diet Manage Prod Active Ammonium Lactate 12 % 1 application Externally to affected areas of skin to feet except for between the toes Twice a day; Duration: 30 days Active Advair Diskus 250-50 MCG/DOSE 1 puff Inhalation Twice a day Active Extra Depth Orthopedic Shoes, (1) Pair With (3) Pair Custom Heat Molded Multidensity Innersoles Dx: NIDDM/PVD(E11.51), Hammertoe Foot Deformity(M20.41,M20.42 ), Preulcerative Skin Lesion(s)(L85.1) Wear Daily; Duration: 365 days 01/19/2025 Active Probiotic Active traZODone HCl 50 MG 1 tablet at bedtime Orally Once a day Active Lisinopril-hydroCHLOROth iazide 2.5 mg Active Ultravate 0.05 % 1 application to affected area on feet Externally Once a day; Duration: 30 days Active Famotidine 20 MG 1 tablet at bedtime as needed Orally Once a day; Duration: 30 day(s) 04/23/2025 Active metFORMIN HCl 1000 MG 1 tablet with a me al Orally Twice a day Active Rosuvastatin Calcium Active Pantoprazole Sodium 20 MG 2 tablets Orally Once a day Not-Taking Eliquis 5 MG as directed Orally twice daily Active metFORMIN HCl 500 MG Oral; Duration: 90 Days Active Immunizations Vaccine Route Administration Date Status Comme nts Influenza Unknown 10/15/2021 Administered COVID-19 Pfizer BioNTech Vaccine Unknown 10/01/2021 Administered 1st 12/05/2020 2nd 12/26/2020 Social History Tobacco Use: Social History Observation [...] Problem Acquired hammer toe of right foot (2729752136744 105) Other hammer toe(s) (acquired), right foot (M20.41) Active confirmed Response to treatment,I mprovement Problem Type 2 diabetes mellitus with peripheral angiopathy (197532908) Type 2 diabetes mellitus with diabetic peripheral angiopathy without gangrene (E11.51) Active confirmed Problem Acquired hammer toe of left foot (1447178298929 103) Other hammer toe(s) (acquired), left foot (M20.42) Active confirmed Response to treatment,I mprovement Vital Signs Blood pressure diastolic 65 mm Hg 04/23/2025 Height 5 ft 7.5 in in 04/23/2025 Blood pressure systolic 128 mm Hg 04/23/2025 Weight 207 lbs 04/23/2025 BMI 31.94 kg/m2 04/23/2025 Procedures Procedure Date Ordered Date Performed Result Body Sit e 68040-ELSCDPC NAIL, 6 OR MORE 07/24/2024 N/A 69783-VMJD SKIN LESIONS, OVER 4 07/24/2024 N/A 11742-CCKVIWX NAIL, 6 OR MORE 10/27/2024 N/A 80529-ICHY SKIN LESIONS, OVER 4 10/27/2024 N/A 22888-ATMKQZC NAIL, 6 OR MORE 01/19/2025 N/A 56148-ZTJU SKIN LESIONS, OVER 4 01/19/2025 N/A 52706-QXXHKRY NAIL, 6 OR MORE 04/23/2025 N/A 17817-WXXS SKIN LESIONS, OVER 4 04/23/2025 N/A Encounters Encounter Location Date Provider Diagnosis [address] [address] 07/24/2024 Jose D Mckeon Type 2 diabetes mellitus with diabetic peripheral angiopathy without gangrene E11.51 ; Tinea unguium B35.1 ; Pain in right toe(s) M79.674 ; Pain in left toe(s) M79.675 and Xerosis of skin L85.[address] [address] 10/27/2024 Jose D Mckeon Type 2 diabetes mellitus with diabetic peripheral angiopathy without gangrene E11.51 ; Tinea unguium B35.1 ; Pain in right toe(s) M79.674 ; Pain in left toe(s) M79.675 and Xerosis of skin L85.[address] [address] 01/19/2025 Jose D Mckeon Type 2 diabetes mellitus with diabetic peripheral angiopathy without gangrene E11.51 ; Tinea unguium B35.1 ; Pain in right toe(s) M79.674 ; Pain in left toe(s) M79.675 ; Other hammer toe(s) (acquired), right foot M20.41 and Other hammer toe(s) (acquired), left foot M20.42 [facility] [address] [address] 04/23/2025 Jose D Mckeon Type 2 diabetes mellitus with diabetic peripheral angiopathy without gangrene E11.51 ; Tinea unguium B35.1 ; Pain in right toe(s) M79.674 and Pain in left toe(s) M79.675 [facility] [address] 01/13/2025 Jose D Mckeon Assessments Encounter Date Diagnosis (ICD Code) Assessment Notes Treatment Notes Treatment Clinical Notes Section Notes 07/24/2024 Type 2 diabetes mellitus with diabetic peripheral angiopathy without gangrene (ICD-10 - E11.51) 07/24/2024 Tinea unguium (ICD-10 - B35.1) 10/27/2024 Type 2 diabetes mellitus with diabetic peripheral angiopathy without gangrene (ICD-10 - E11.51) 10/27/2024 Tinea unguium (ICD-10 - B35.1) 01/19/2025 Type 2 diabetes mellitus with diabetic peripheral angiopathy without gangrene (ICD-10 - E11.51) 01/19/2025 Tinea unguium (ICD-10 - B35.1) 04/23/2025 Type 2 diabetes mellitus with diabetic peripheral angiopathy without gangrene (ICD-10 - E11.51) 04/23/2025 Tinea unguium (ICD-10 - B35.1) 04/23/2025 Pain in right toe(s) (ICD-10 - M79.674) 01/19/2025 Pain in right toe(s) (ICD-10 - M79.674) 10/27/2024 Pain in right toe(s) (ICD-10 - M79.674) 07/24/2024 Pain in right toe(s) (ICD-10 - M79.674) 10/27/2024 Pain in left toe(s) (ICD-10 - M79.675) 07/24/2024 Pain in left toe(s) (ICD-10 - M79.675) 01/19/2025 Pain in left toe(s) (ICD-10 - M79.675) 04/23/2025 Pain in left toe(s) (ICD-10 - M79.675) 10/27/2024 Xerosis of skin (ICD-10 - L85.3) 01/19/2025 Other hammer toe(s) (acquired), right foot (ICD-10 - M20.41) Patient Educated with: DIABETIC FOOT CARE INSTRUCTIONS.p df (DIABETIC FOOT CARE INSTRUCTIONS.p df) 07/24/2024 Xerosis of skin (ICD-10 - L85.3) 01/19/2025 Other hammer toe(s) (acquired), left foot (ICD-10 - M20.42) Plan Of Treatment Pending Test Test Name Order Date 86080-ZTPYOTF NAIL, 6 OR MORE 08/06/2014 68969-UQGHZNZ NAIL, 6 OR MORE 11/09/2014 35637-RSHPBQO NAIL, 6 OR MORE 02/08/2015 60284-LERJXON NAIL, 6 OR MORE 05/13/2015 93117-DEJEOLA NAIL, 6 OR MORE 08/16/2015 88628-RMWMXCG NAIL, 6 OR MORE 12/02/2015 87972-VMFIYAH NAIL, 6 OR MORE 03/02/2016 63372-GRJUVRH NAIL, 6 OR MORE 06/01/2016 86275-DAKKRDR NAIL, 6 OR MORE 08/10/2016 10820-ZCUTBBH NAIL, 6 OR MORE 10/19/2016 67271-HYPHFIQ NAIL, 6 OR MORE 12/28/2016 31831-XYHLZJA NAIL, 6 OR MORE 03/08/2017 16456-RVKGEIG NAIL, 6 OR MORE 05/14/2017 54705-KJPTLYD NAIL, 6 OR MORE 08/02/2017 87145-YOTWRMT NAIL, 6 OR MORE 10/18/2017 26774-STSDGJO NAIL, 6 OR MORE 01/03/2018 44456-WEOLMAI NAIL, 6 OR MORE 03/14/2018 76817-TZQRVUV NAIL, 6 OR MORE 05/16/2018 06432-XQAQFTF NAIL, 6 OR MORE 07/25/2018 44648-NBFZCZL NAIL, 6 OR MORE 10/14/2018 09157-RJXVOJN NAIL, 6 OR MORE 01/09/2019 53301-ZZZHKON NAIL, 6 OR MORE 03/17/2019 30056-IFQZXMX NAIL, 6 OR MORE 06/26/2019 10877-VPVJPQC NAIL, 6 OR MORE 09/04/2019 37167-DJNECLO NAIL, 6 OR MORE 11/17/2019 67514-XGGBIXQ NAIL, 6 OR MORE 01/29/2020 97952-XEBKKXB NAIL, 6 OR MORE 05/06/2020 24244-ZGNJLWT NAIL, 6 OR MORE 12/30/2020 60124-RMFQGBL NAIL, 6 OR MORE 03/14/2021 17862-ZIRARZY NAIL, 6 OR MORE 06/13/2021 44440-DMDVBYD NAIL, 6 OR MORE 09/01/2021 97084-MUTKSMQ NAIL, 6 OR MORE 11/21/2021 04872-UPDJXOE NAIL, 6 OR MORE 10/21/2020 30815-PDDDZNJ NAIL, 6 OR MORE 02/02/2022 32020-UTZKJHX NAIL, 6 OR MORE 04/13/2022 74403-YOKONQF NAIL, 6 OR MORE 06/26/2022 37873-BDEIFGW NAIL, 6 OR MORE 09/17/2022 16288-JAJCOOE NAIL, 6 OR MORE 11/27/2022 48332-GHTBGOM NAIL, 6 OR MORE 02/26/2023 56896-KSJKNQA NAIL, 6 OR MORE 05/14/2023 37294-MUUIQQY NAIL, 6 OR MORE 07/26/2023 42664-FQEKWAT NAIL, 6 OR MORE 10/08/2023 26206-VVGRUPK NAIL, 6 OR MORE 12/31/2023 45476-ZKFLAOT NAIL, 6 OR MORE 03/10/2024 73305-VLEBGLO NAIL, 6 OR MORE 05/22/2024 02159-FHMXDLQ NAIL, 6 OR MORE 07/24/2024 64169-XUEXCMC NAIL, 6 OR MORE 10/27/2024 15478-ARVBEFA NAIL, 6 OR MORE 01/19/2025 98836-MAMJAKM NAIL, 6 OR MORE 04/23/2025 31585-Xmaykprc Plate 07/26/2023 49880-Kdvnyxgj Plate 06/26/2022 41078-Fzjrbxov Plate 04/13/2022 56734-Flsalcpo Plate 10/21/2020 44115-Jygbjemc Plate 11/21/2021 84315-Pynnrdzj Plate 05/06/2020 14386-Zwrwflcu Plate 06/26/2019 99753-Lsivtcpx Plate 08/02/2017 37064-Ggbcunjv Plate 10/19/2016 68390-Onvcjrsj Plate 08/16/2015 72401-Mlbggkvp Plate 05/13/2015 20215-Wvweozfz Plate 02/08/2015 48177-Hmnikmis Plate 11/09/2014 78546-Hmspuzub Plate 08/06/2014 24302-Zunwreoo Plate 05/04/2014 30893-Rzcdagtc Plate Each Additional 01/2014 24977-Diolroqb Plate Each Additional 03/2014 68518-Bktkofsi Plate Each Additional 06/2015 11652-Hkepamcs Plate Each Additional 08/2015 86669-Acrlbkqx Plate Each Additional 60960-Zeqlfmaf Plate Each Additional 51730 I&D ABSCESS- SIMPLE,SINGLE 018 49035-NKZQ SKIN LESIONS, OVER 4 09/17/20 22 16836-KABI SKIN LESIONS, OVER 4 02/27/20 23 23249-BSVO SKIN LESIONS, OVER 4 11/27/19 23 45711-CYMA SKIN LESIONS, OVER 4 10/27/19 25 26903-QYIJ SKIN LESIONS, OVER 4 07/24/20 24 07421-LBUY SKIN LESIONS, OVER 4 05/22/20 24 75600-JEGK SKIN LESIONS, OVER 4 03/10/20 24 39266-ZGKE SKIN LESIONS, OVER 4 12/31/19 24 65515-TYKL SKIN LESIONS, OVER 4 10/08/19 24 02293-XEZJ SKIN LESIONS, OVER 4 07/26/20 23 48366-ILLK SKIN LESIONS, OVER 4 05/14/20 23 32983-UCMN SKIN LESIONS, OVER 4 04/23/20 99161-GYRZ SKIN LESIONS, OVER 4 01/20/20 Next Appt Details Provider Name:Jose D Mckeon , 07/23/2025 01:45:00 PM, [address] [facility], [place], [address], Insurance Providers Payer Name Payer Address Payer Phone Subscriber Number Group Number Insured Name Patient Relationship to Insured Coverage Start Date Coverage End Date [employer] [place] [employer] [address] [place] [address] [place] [id number] Junior Reyes Self - patient is the [...] CT Scan right kidney- small mass found [facility] Biopsy 02/2017 [place] [facility], cough 09/2014
--- OUTSIDE RECORDS SUMMARY | 2025-06-16 13:49 | XMS_ITS | Clinical Summary ---
Author Organization [facility] Address [address] [place] [address] Phone Care Team Providers Care Laundry Superintendent Name Role Phone Physician, Pcp Unknown Primary [...] series) 2021 Cholesterol Screening (Lipid Panel) 08/05/2024 Falls Risk Assessment 08/05/2024 Hepatitis C Screening 08/05/2024 Social Influencers of Health Screening 08/05/2024 Depression Screening 09/30/2024 COVID-19 Vaccine ( - 2023-2 5 season) 2025 Influenza Vaccine (#1) 2025 HIB Vaccines Aged [...] patient's age to complete this topic Insurance [facility] Care Teams Laundry Superintendent Relationship Specialty Start Date End Date Physician, Pcp Unknown PCP - General 08/05/24
--- OUTSIDE RECORDS SUMMARY | 2025-06-16 13:50 | XMS_ITS | Clinical Summary ---
Author Organization [facility] Address [address] [place] [address] Phone Care Team Providers Care Flower Grower Name Role Phone Dmitriy Aguilar DO Primary Care Provider [phone] Allergies Active Allergy Reactions Criticality Noted Date [...] Visit [facility] [address] [place] [address] Roman Leal MD [address] [facility] [address] [place] [phone] Health Maintenance Due Date Last Done Comments [...] patient's age to complete this topic Insurance [facility] Care Teams Flower Grower Relationship Specialty Start Date End Date Dmitriy Aguilar DO [address] [place] [address] [phone] PCP - General Family Medicine 08/17/24
--- OUTSIDE RECORDS SUMMARY | 2025-06-16 13:50 | XMS_ITS | Patient Health Record ---
Author Organization [facility] Address [address] [place] [address] Care Team Providers Care Iuss Master Analyst Name Role Phone Esteban Luu Jr [phone] Reason For Referral No Information Plan Of Treatment No Information
--- OUTSIDE RECORDS SUMMARY | 2025-06-16 13:50 | XMS_ITS | Encounter Summary ---
Author Organization [facility] Address [address] [place] [address] Care Team Providers Care Deer Farmer Name Role Phone Physician, Pcp Unknown Primary Care Provider Brianna vailable Encounter Details Date Type Department Care Team (Late st Contact Info) Description 08/05/2024 Lab Requisition [facility] - Main Lab [address] [facility] [place] [address] Chris Cunningham III, MD [address] [place] [address] [place] [phone] Basal cell carcinoma of skin, unspecified Social [...] for residual neoplasm 08/06/2024 12:59 PM EST [facility] LAB Gross Description A. Back, Lower, [...] The contiguous cut surfaces are focally fibrotic. Field Project Manager cruciate sections are submitted in four cassettes. [...] nal Result [facility] [address] [place] [address], documented in this encounter Visit Diagnoses Diagnosis Basal cell carcinoma of skin, unspecified documented in this encounter Care Teams Deer Farmer Relationship Specialty Start Date End Date Physician, Pcp Unknown PCP - General 08/05/24 documented as of this encounter
== END 2025-06-16 11:39 | disposition home or self-care (01) ==
PROVIDERS: PCP Physician Assistant Medical; Visit Provider Internal Medicine
DX: J44.9 Chronic obstructive pulmonary disease, unspecified (principal); R05.9 Cough, unspecified; G47.33 Obstructive sleep apnea (adult) (pediatric); Z99.89 Dependence on other enabling machines and devices; R91.1 Solitary pulmonary nodule
CPT/HCPCS: 99214

== ENCOUNTER → 2025-06-16 11:44 | Outpatient (BNV) | payer MEDICARE, SELFPAY | PROVIDERS: PCP Nurse Practitioner Adult Health; Visit Provider Radiology Diagnostic Radiology | DX: J84.9 Interstitial pulmonary disease, unspecified (principal) | CPT/HCPCS: 71046 ==

== ENCOUNTER 2025-07-08 12:24 | Outpatient (REF) | payer MEDICARE, SELFPAY ==
[2025-07-08 14:31] LABS: Anion Gap 11 (12-20); Blood Urea Nitrogen 18 mg/dL (9-16); Calcium 9.9 mg/dL (8.4-10.2); Carbon Dioxide 29 mmol/L (22-29); Chloride 106 mmol/L (96-108); Estimated Glomerular Filt Rate 57; Potassium 4.3 mmol/L (3.3-5.1); Sodium 142 mmol/L (135-145)
== END 2025-07-08 12:25 | disposition home or self-care (01) ==
LOC: HO.LAB 12:24
PROVIDERS: Visit Provider Internal Medicine Cardiovascular Disease
DX: R06.00 Dyspnea, unspecified (principal)
CPT/HCPCS: 36415; 80048

== ENCOUNTER 2025-08-19 15:49 | Outpatient (REF) | payer MEDICARE, SELFPAY ==
--- OUTSIDE RECORDS SUMMARY | 2025-01-29 06:15 | XMS_ITS ---
Author Organization [facility] [place] Address [address] [place] [address] Care Team Providers Care Community Center Worker Name Role Phone Rach Dubois Primary Care Provider Unavailabl Jose D Gomez Unavailable [phone] Dmitriy Aguilar Unavailable Unavailable REASON FOR VISIT Dr Barnes Encounters Encounter Location Date Provider Diagnosis [address] [address] 01/29/2025 Jose D Mckeon Plan Of Treatment Next Appt Details Provider Name:Jose D Mckeon , 10/15/2025 12:30:00 PM, [address] [place] [address], [phone], Progress Notes * Junior OLIVEROSDOB:1945 (80 yo M)Acc No.[id number]:01/29/2025 Progress Note Patient: Junior CARR Provider: Riddhi Mckeon DPM :1945 A ge:79 Y S ex:Male Date:01/29/2025 Address:[address] [place] [address] [place], [id number] Pcp:Rach Dubois Subjective: * Chief Complaints: * [...] 0 01/29/2025 Generated for Rocío ramírez/Karan/Jillian on: 10/19/2024 08:47 PM EST
--- OUTSIDE RECORDS SUMMARY | 2025-02-16 08:30 | XMS_ITS ---
Author Organization [facility] [place] Address [address] [place] [address] Care Team Providers Care Body Maker Name Role Phone Rach Dubois Primary Care Provider Unavailabl Jose D Gomez Unavailable [phone] Dmitriy Aguilar Unavailable Unavailable Encounters Encounter Location Date Provider Diagnosis [address] [address] 02/16/2025 Jose D Mckeon Plan Of Treatment Next Appt Details Provider Name:Jose D Mckeon , 10/15/2025 12:30:00 PM, [address] [place] [address], [phone], Progress Notes * Junior OLIVEROSDOB:1945 (80 yo M)Acc No.[id number]:02/16/2025 Progress Note Patient: Junior CARR Provider: Riddhi Mckeon DPM :1945 A ge:80 Y S ex:Male Date:02/16/2025 Address:[address] [place] [address] [place], [id number] Pcp:Rach Dubois Subjective: * Chief Complaints: * * Medical History: Objective: * Vitals: Assessment: Plan: * Treatment: * Images: * The named appointment provid er may or may not be the originator of this progress note, and it is not deemed complete until electronically signed by the appointment provider. Sign off status: Pending * Provider: Riddhi Mckeon DPM Date: 0 02/16/2025 Generated for Rocío ramírez/Karan/Jillian on: 1 10/19/2024 08:47 PM EST
--- NOTE | ~2025-08-19 | CT_ITS ---
EXAMINATION: CT CHEST HIGH RESOLUTION WITHOUT IV CONTRAST INDICATION: R05.9 - Cough, unspecified COMPARISON: Comparison is made with the prior examination dated 02/21/2023. TECHNIQUE: Helical CT scan of the chest was performed without intravenous contrast. In addition, high resolution 1 mm thick images were obtained in full inspiration and in the prone position. Coronal and sagittal reformatted images were generated and reviewed. This CT exam was performed with one or more of the following dose reduction techniques: automated exposure control, adjustment of the mA and/or kV according to patient size, use of iterative reconstruction technique. DLP: 213 mGy-cm CHEST: THYROID: The thyroid is unremarkable. LUNGS: There is moderate fibrotic change involving the peripheral aspects of the lungs, greatest in the lower lobes. There is associated volume loss and honeycombing. There is traction bronchiectasis in the lower lobes. There are scattered groundglass opacities bilaterally, suggesting active disease (series 6, images 180, 183, 283, and 324). Tree-in-bud opacities in the right upper lobe are compatible with small airways disease. There is a 3 mm nodule in the right upper lobe (series 6, image 59). An additional 4 mm nodule is seen more inferiorly in the right upper lobe (series 6, image 141). There is a 3 mm nodule at the left lung apex (series 6, image 71) and a 5 mm nodule in the posterior aspect of the left upper lobe (series 6, image 98). MEDIASTINUM: There is no mediastinal lymphadenopathy. SUMMER: Evaluation of the hilar regions is limited by lack of intravenous contrast material. CARDIOVASCULATURE: The heart is enlarged. There is no pericardial effusion. Again seen is dilatation of the ascending thoracic aorta measuring up to 4.5 cm in diameter. DEGREE OF CORONARY CALCIFICATION: moderate PLEURA: There is no pleural effusion. No pneumothorax. MAIN AIRWAYS: The mainstem bronchi and proximal branches are patent. AXILLA: There is no axillary lymphadenopathy. BONES AND SOFT TISSUES: Unremarkable UPPER ABDOMEN: The visualized portions of the liver, spleen, and adrenals have an unremarkable unenhanced appearance. CT/CT chest wo con - High Res IMPRESSION: 1. Pulmonary fibrosis as described. 2. Cardiomegaly. Dilatation of the ascending thoracic aorta measuring 4.5 cm. Electronically signed by: Dmitriy Waldrop MD 08/20/2025 07:39 AM EST
--- OUTSIDE RECORDS SUMMARY | 2025-08-19 20:47 | XMS_ITS | Clinical Summary ---
Author Organization [address] [facility] Address [address] [place] [address] Phone Care Team Providers Care Stallion Keeper Name Role Phone Physician, Pcp Unknown Primary [...] Depression Screening 09/30/2024 COVID-19 Vaccine ( - 2024-2 6 season) 2025 Influenza Vaccine (#1) 2025 HIB [...] patient's age to complete this topic Insurance [facility] Care Teams Stallion Keeper Relationship Specialty Start Date End Date Physician, Pcp Unknown PCP - General 08/05/24
--- OUTSIDE RECORDS SUMMARY | 2025-08-19 20:47 | XMS_ITS | Patient Health Record ---
Author Organization [facility] Address [address] [place] [address] Care Team Providers Care Subassembly Assembler Name Role Phone Esteban Luu Jr [phone] Reason For Referral No Information Plan Of Treatment No Information
--- OUTSIDE RECORDS SUMMARY | 2025-08-19 20:47 | XMS_ITS | Encounter Summary ---
Author Organization [employer] Address [address] [place] [address] Care Team Providers Care Dna Sequencing Associate Name Role Phone Physician, Pcp Unknown Primary Care Provider Brianna vailable Encounter Details Date Type Department Care Team (Late st Contact Info) Description 08/05/2024 Lab Requisition [facility] - Main Lab [address] [facility] [place] [address] Chris Cunningham III, MD [address] [place] [address] [place] [phone] Basal cell carcinoma of skin, unspecified Social [...] for residual neoplasm 08/06/2024 12:59 PM EST [facility] HOSP[facility] LAB Gross Description A. Back, [...] The contiguous cut surfaces are focally fibrotic. Entertainment Reporter cruciate sections are submitted in four cassettes. 1-medial and lateral cruciate tips, with green ink at medial tip, two pieces 2-4 center of specimen, blocked out (2-3: two pieces each, 4-one piece) 08/06/2024 12:59 PM EST [facility] Disclaimer Unless otherwise specified, all tissue is 10% NB formalin fixed and paraffin embedded. 08/06/2024 12:59 PM EST [facility] Tissue Lower back structure / Unknown 08/04/2024 08/05/2024 9:41 AM EST us Chris Cunningham III, MD LAB PATHOLOGY ORDERABLES Fi nal Result [facility] [address] [place] [address], documented in this encounter Visit Diagnoses Diagnosis Basal cell carcinoma of skin, unspecified documented in this encounter Care Teams Dna Sequencing Associate Relationship Specialty Start Date End Date Physician, Pcp Unknown PCP - General 08/05/24 documented as of this encounter
--- OUTSIDE RECORDS SUMMARY | 2025-08-19 20:47 | XMS_ITS | Clinical Summary ---
Author Organization [facility] Address [address] [place] [address] Phone Care Team Providers Care Cement Finishing Supervisor Name Role Phone Dmitriy Aguilar DO Primary Care Provider [phone] Allergies Active Allergy Reactions Criticality Noted Date [...] Visit [facility] [address] [facility] [address] Roman Leal MD [address] [facility] [address] [place] [phone] Health Maintenance Due Date Last Done Comments [...] patient's age to complete this topic Insurance [facility] Care Teams Cement Finishing Supervisor Relationship Specialty Start Date End Date Dmitriy Aguilar DO [address] [place] [phone] PCP - General Family Medicine 08/17/24
--- OUTSIDE RECORDS SUMMARY | 2025-08-19 20:48 | XMS_ITS | Patient Health Record ---
Author Organization [facility]mery [facility]omal [facility] Address [address] [place] [address] Care Team Providers Care Fish Hatchery Inspector Name Role Phone Silvino Rach Primary Care Provider Jose D Ceron Unavailable [phone] Dmitriy Aguilar Unavailable Unavailable Allergies Allergen (clinical [...] Duration) Notes Start Date End Date Status Amiodarone HCl 200 MG 1 tablet Orally On ce a day Active Famotidine 20 MG 1 tablet at bedtime as needed Orally Once a day; Duration: 30 day(s) 04/23/2025 Active Chlorthalidone 25 MG 1 tablet in the mor maria elena Orally Once a day Active Metoprolol Succinate 25 MG 1 capsule Orally Once a day Not-Taking Advair Diskus 250-50 MCG/DOSE 1 puff Inhalation Twice a day Active Extra Depth Orthopedic Shoes, (1) Pair With (3) Pair Custom Heat Molded Multidensity Innersoles Dx: NIDDM/PVD(E11.51), Hammertoe Foot Deformity(M20.41,M20.42 ), Preulcerative Skin Lesion(s)(L85.1) Wear Daily; Duration: 365 days 01/19/2025 Active Acetaminophen 650 MG 1 tablet as needed Orally every 6 hrs PRN Active metFORMIN HCl 500 MG Oral; Duration: 90 Days Active Lisinopril-hydroCHLOROth iazide 2.5 mg Active Ultravate 0.05 % 1 application to affected area on feet Externally Once a day; Duration: 30 days Active Lisinopril & Diet Manage Prod Active Ammonium Lactate 12 % 1 application Externally to affected areas of skin to feet except for between the toes Twice a day; Duration: 30 days Active traZODone HCl 50 MG 1 tablet at bedtime Orally Once a day Active Probiotic Active metFORMIN HCl 1000 MG 1 tablet with a me al Orally Twice a day Active Pantoprazole Sodium 20 MG 2 tablets Orally Once a day Not-Taking Rosuvastatin Calcium Active Ciclopirox Olamine 0.77 % 1 application to affected area Externally Twice a day; Duration: 30 days Active Aspirin 81 MG 1 tablet Orally Once a day Not-Taking Eliquis 5 MG as directed Orally twice daily Active Losartan Potassium 100 MG 1 tablet Orally Once a day Not-Taking Immunizations Vaccine Route Administration Date Status Comme nts Influenza Unknown 10/15/2021 Administered Influenza Unknown 07/01/2025 Administered COVID-19 Pfizer BioNTech Vaccine Unknown 10/01/2021 [...] Problem Acquired hammer toe of right foot (283205359009 9105) Other hammer toe(s) (acquired), right foot (M20.41) Active confirmed Response to treatment, Improvement Problem Type 2 diabetes mellitus with peripheral angiopathy (032787990) Type 2 diabetes mellitus with diabetic peripheral angiopathy without gangrene (E11.51) Active confirmed Problem Acquired hammer toe of left foot (297953506115 9103) Other hammer toe(s) (acquired), left foot (M20.42) Active confirmed Response to treatment, Improvement Vital Signs Blood pressure diastolic 60 mm Hg 07/23/2025 Height 5 ft 7.5 in in 07/23/2025 Blood pressure systolic 130 mm Hg 07/23/2025 Weight 207 lbs 07/23/2025 BMI 31.94 kg/m2 07/23/2025 Procedures Procedure Date Ordered Date Performed Result Body Sit e 69971-OHRJUOQ NAIL, 6 OR MORE 10/27/2024 N/A 36311-HGCY SKIN LESIONS, OVER 4 10/27/2024 N/A 63651-QFKIQFE NAIL, 6 OR MORE 01/19/2025 N/A 18576-QQNN SKIN LESIONS, OVER 4 01/19/2025 N/A 98128-IXDFGUI NAIL, 6 OR MORE 04/23/2025 N/A 64868-JAZF SKIN LESIONS, OVER 4 04/23/2025 N/A 67340-NSJWWLB NAIL, 6 OR MORE 07/23/2025 N/A 74175-HMHC SKIN LESIONS, OVER 4 07/23/2025 N/A Encounters Encounter Location Date Provider Diagnosis [address] [address] 10/27/2024 Jose D Mckeon Type 2 diabetes mellitus with diabetic peripheral angiopathy without gangrene E11.51 ; Tinea unguium B35.1 ; Pain in right toe(s) M79.674 ; Pain in left toe(s) M79.675 and Xerosis of skin L85.[address] [address] 01/19/2025 Jose D Mckeon Type 2 diabetes mellitus with diabetic peripheral angiopathy without gangrene E11.51 ; Tinea unguium B35.1 ; Pain in right toe(s) M79.674 ; Pain in left toe(s) M79.675 ; Other hammer toe(s) (acquired), right foot M20.41 and Other hammer toe(s) (acquired), left foot M20.[address] [address] 04/23/2025 Jose D Mckeon Type 2 diabetes mellitus with diabetic peripheral angiopathy without gangrene E11.51 ; Tinea unguium B35.1 ; Pain in right toe(s) M79.674 and Pain in left toe(s) M79.[address] [address] 07/23/2025 Jose D Mckeon Type 2 diabetes mellitus with diabetic peripheral angiopathy without gangrene E11.51 ; Tinea unguium B35.1 ; Pain in right toe(s) M79.674 ; Pain in left toe(s) M79.675 ; Other hammer toe(s) (acquired), right foot M20.41 and Other hammer toe(s) (acquired), left foot M20.[address] [address] 01/13/2025 Jose D Mckeon Assessments Encounter Date Diagnosis (ICD Code) Assessment Notes Treatment Notes Treatment Clinical Notes Section Notes 10/27/2024 Type 2 diabetes mellitus with diabetic peripheral angiopathy without gangrene (ICD-10 - E11.51) 10/27/2024 Tinea unguium (ICD-10 - B35.1) 01/19/2025 Type 2 diabetes mellitus with diabetic peripheral angiopathy without gangrene (ICD-10 - E11.51) 01/19/2025 Tinea unguium (ICD-10 - B35.1) 04/23/2025 Type 2 diabetes mellitus with diabetic peripheral angiopathy without gangrene (ICD-10 - E11.51) 04/23/2025 Tinea unguium (ICD-10 - B35.1) 07/23/2025 Type 2 diabetes mellitus with diabetic peripheral angiopathy without gangrene (ICD-10 - E11.51) 07/23/2025 Tinea unguium (ICD-10 - B35.1) 07/23/2025 Pain in right toe(s) (ICD-10 - M79.674) 04/23/2025 Pain in right toe(s) (ICD-10 - M79.674) 01/19/2025 Pain in right toe(s) (ICD-10 - M79.674) 10/27/2024 Pain in right toe(s) (ICD-10 - M79.674) 10/27/2024 Pain in left toe(s) (ICD-10 - M79.675) 01/19/2025 Pain in left toe(s) (ICD-10 - M79.675) 04/23/2025 Pain in left toe(s) (ICD-10 - M79.675) 07/23/2025 Pain in left toe(s) (ICD-10 - M79.675) 10/27/2024 Xerosis of skin (ICD-10 - L85.3) 01/19/2025 Other hammer toe(s) (acquired), right foot (ICD-10 - M20.41) Patient Educated with: DIABETIC FOOT CARE INSTRUCTIONS.p df (DIABETIC FOOT CARE INSTRUCTIONS.p df) 01/19/2025 Other hammer toe(s) (acquired), left foot (ICD-10 - M20.42) 07/23/2025 Other hammer toe(s) (acquired), right foot (ICD-10 - M20.41) Response to treatment, Improvement 07/23/2025 Other hammer toe(s) (acquired), left foot (ICD-10 - M20.42) Response to treatment, Improvement Plan Of Treatment Pending Test Test Name Order Date 17454-OGQRQAB NAIL, 6 OR MORE 08/06/2014 45131-KWLVCHU NAIL, 6 OR MORE 11/09/2014 93164-JLQUHUR NAIL, 6 OR MORE 02/08/2015 43722-IOKHYHF NAIL, 6 OR MORE 05/13/2015 33121-SHESNPS NAIL, 6 OR MORE 08/16/2015 54410-PYWWWNN NAIL, 6 OR MORE 12/02/2015 45205-ATEKBYI NAIL, 6 OR MORE 03/02/2016 11738-EDDPKQH NAIL, 6 OR MORE 06/01/2016 77688-EGFOETI NAIL, 6 OR MORE 08/10/2016 44212-MONKLBJ NAIL, 6 OR MORE 10/19/2016 41749-MBZRTGQ NAIL, 6 OR MORE 12/28/2016 37530-OOLHAIV NAIL, 6 OR MORE 03/08/2017 82292-XOJXDBM NAIL, 6 OR MORE 05/14/2017 22340-GYDSWVB NAIL, 6 OR MORE 08/02/2017 92832-VNMPAPM NAIL, 6 OR MORE 10/18/2017 71786-MCNCBBR NAIL, 6 OR MORE 01/03/2018 05280-JNQXCQU NAIL, 6 OR MORE 03/14/2018 42837-IJWFLWZ NAIL, 6 OR MORE 05/16/2018 69133-QXJWWIZ NAIL, 6 OR MORE 07/25/2018 51937-FHIBLEQ NAIL, 6 OR MORE 10/14/2018 61612-NEHZMRJ NAIL, 6 OR MORE 01/09/2019 76530-ROCGRNX NAIL, 6 OR MORE 03/17/2019 60021-PSUAJEM NAIL, 6 OR MORE 06/26/2019 35976-GDAGRKO NAIL, 6 OR MORE 09/04/2019 52899-YQTRGTT NAIL, 6 OR MORE 11/17/2019 78793-VNEWROZ NAIL, 6 OR MORE 01/29/2020 82357-XSJYGCS NAIL, 6 OR MORE 05/06/2020 86336-WBRBBTU NAIL, 6 OR MORE 12/30/2020 32653-VXEHGTB NAIL, 6 OR MORE 03/14/2021 44148-DXXHSSL NAIL, 6 OR MORE 06/13/2021 58649-UQZESPA NAIL, 6 OR MORE 09/01/2021 38182-CFCZSZT NAIL, 6 OR MORE 11/21/2021 97812-GHXRPRM NAIL, 6 OR MORE 10/21/2020 04761-BUAMNQC NAIL, 6 OR MORE 02/02/2022 57471-KBTEKKY NAIL, 6 OR MORE 04/13/2022 02071-QJZUZGT NAIL, 6 OR MORE 06/26/2022 52138-UDDKWTC NAIL, 6 OR MORE 09/17/2022 26061-PAGTHEF NAIL, 6 OR MORE 11/27/2022 68443-QSWLYFK NAIL, 6 OR MORE 02/26/2023 11853-IULAFOD NAIL, 6 OR MORE 05/14/2023 45592-NPLCNZA NAIL, 6 OR MORE 07/26/2023 03754-RULVJWH NAIL, 6 OR MORE 10/08/2023 43991-WMTZZIW NAIL, 6 OR MORE 12/31/2023 97240-KVAJFWJ NAIL, 6 OR MORE 03/10/2024 95061-JNUMOYW NAIL, 6 OR MORE 05/22/2024 74556-TVETVHJ NAIL, 6 OR MORE 07/24/2024 32092-OZSMOGM NAIL, 6 OR MORE 10/27/2024 88439-PMXIGTP NAIL, 6 OR MORE 01/19/2025 93223-OYLLXSZ NAIL, 6 OR MORE 04/23/2025 69268-VEWNFNZ NAIL, 6 OR MORE 07/23/2025 81412-Qcbxyafd Plate 07/26/2023 90094-Jmlcqqyx Plate 06/26/2022 57350-Zugfiwlg Plate 04/13/2022 11176-Mjzobtfn Plate 10/21/2020 30585-Aiarcqhg Plate 11/21/2021 44487-Pcctnbhw Plate 05/06/2020 67186-Xkqahnma Plate 06/26/2019 17650-Xtlyrdbo Plate 08/02/2017 82608-Ldagmkzq Plate 10/19/2016 02870-Nglxipoh Plate 08/16/2015 72647-Juzkqycf Plate 05/13/2015 83998-Lysuvxlh Plate 02/08/2015 88331-Yqoberwv Plate 11/09/2014 70825-Ssretmnn Plate 08/06/2014 22020-Glsbzdfx Plate 05/04/2014 36796-Fythxxkd Plate Each Additional 01/2014 04085-Jxeqhknq Plate Each Additional 03/2014 30364-Zjrmsayh Plate Each Additional 06/2015 25534-Aunyttea Plate Each Additional 08/2015 57784-Cyxcyjmk Plate Each Additional 19205-Ssouqevf Plate Each Additional 92462 I&D ABSCESS- SIMPLE,SINGLE 018 06775-TOOW SKIN LESIONS, OVER 4 09/17/20 22 37948-CNYW SKIN LESIONS, OVER 4 02/27/20 79903-OEKA SKIN LESIONS, OVER 4 11/27/19 29937-LHLD SKIN LESIONS, OVER 4 10/27/19 26999-CGQE SKIN LESIONS, OVER 4 07/24/20 24 73820-JIRO SKIN LESIONS, OVER 4 05/22/20 24 22798-LGYN SKIN LESIONS, OVER 4 03/10/20 50586-YVHL SKIN LESIONS, OVER 4 12/31/19 33758-HWHU SKIN LESIONS, OVER 4 10/08/19 04930-XKCS SKIN LESIONS, OVER 4 07/26/20 23 09633-TUKM SKIN LESIONS, OVER 4 05/14/20 22860-WOOE SKIN LESIONS, OVER 4 07/23/20 69286-JLOG SKIN LESIONS, OVER 4 04/23/20 67030-AXBD SKIN LESIONS, OVER 4 01/20/20 Next Appt Details Provider Name:Jose D Mckeon , 10/15/2025 12:30:00 PM, [address] [facility], [place], [address], Insurance Providers Payer Name Payer Address Payer Phone Subscriber Number Group Number Insured Name Patient Relationship to Insured Coverage Start Date Coverage End Date [employer] [address] [place] [address] [phone] [id number] Junior Reyes Self - patient is the [...] CT Scan right kidney- small mass found [facility] Biopsy 02/2017 [facility], cough 09/2014
== END 2025-08-19 15:50 | disposition home or self-care (01) ==
LOC: HO.CT 15:49
PROVIDERS: Visit Provider Internal Medicine
DX: J98.4 Other disorders of lung (principal); R05.9 Cough, unspecified; J44.9 Chronic obstructive pulmonary disease, unspecified; T46.2X5A Adverse effect of other antidysrhythmic drugs, initial encounter
CPT/HCPCS: 71250

== ENCOUNTER → 2025-08-19 15:50 | Outpatient (BNV) | payer MEDICARE, SELFPAY | PROVIDERS: Visit Provider Radiology Diagnostic Radiology | DX: R05.9 Cough, unspecified (principal) | CPT/HCPCS: 71250 ==

== ENCOUNTER 2025-08-24 09:20 | Outpatient (REF) | payer MEDICARE, SELFPAY ==
[2025-08-24 10:09] LABS: Hematocrit 43.9 % (42.0-52.0); Hemoglobin 14.1 g/dl (14.0-18.0); Mean Corpuscular HGB Conc 32.1 g/dl (31.0-36.0); Mean Corpuscular Hemoglobin 30.9 pg (27.0-33.0); Mean Corpuscular Volume 96.3 fL (80.0-98.0); NRBC Abs Auto 0.000 X10*3/uL (0.0-0.012); NRBC Pct Auto 0.0 /100WBC (0.0-0.2); Platelet Count 318 X10*3/uL (160-400); Red Blood Count 4.56 X10*6/uL (4.60-5.80); White Blood Count 8.6 X10*3/uL (4.8-10.8)
[2025-08-24 10:29] LABS: INTERNATIONAL NORM RATIO 1.3 (0.9-1.1); Prothrombin Time 15.4 SEC (11.2-13.5)
--- OUTSIDE RECORDS SUMMARY | 2025-08-24 10:35 | XMS_ITS | Encounter Summary ---
Author Organization [employer] Address [address] [place] [address] Care Team Providers Care Pharmacy Informaticist Name Role Phone Physician, Pcp Unknown Primary Care Provider Brianna vailable Encounter Details Date Type Department Care Team (Late st Contact Info) Description 08/05/2024 Lab Requisition [facility] - Main Lab [address] [facility] [place] [address] Chris Cunningham III, MD [address] [place] [address] [place] [phone] Basal cell carcinoma of skin, unspecified Social [...] for residual neoplasm 08/06/2024 12:59 PM EST [facility] HOSPITAL LAB Gross Description A. Back, Lower, [...] The contiguous cut surfaces are focally fibrotic. Sliver Lap Machine Tender cruciate sections are submitted in four cassettes. 1-medial and lateral cruciate tips, with green ink at medial tip, two pieces 2-4 center of specimen, blocked out (2-3: two pieces each, 4-one piece) 08/06/2024 12:59 PM EST [facility] Disclaimer Unless otherwise specified, all tissue is 10% NB formalin fixed and paraffin embedded. 08/06/2024 12:59 PM EST [facility] Tissue Lower back structure / Unknown 08/04/2024 08/05/2024 9:41 AM EST us Chris Cunningham III, MD LAB PATHOLOGY ORDERABLES Fi nal Result [facility] [address] [place] [address], documented in this encounter Visit Diagnoses Diagnosis Basal cell carcinoma of skin, unspecified documented in this encounter Care Teams Pharmacy Informaticist Relationship Specialty Start Date End Date Physician, Pcp Unknown PCP - General 08/05/24 documented as of this encounter
--- OUTSIDE RECORDS SUMMARY | 2025-08-24 10:35 | XMS_ITS | Clinical Summary ---
Author Organization [address] [facility] Address [address] [place] [address] Phone Care Team Providers Care Chocolate Finisher Operator Name Role Phone Physician, Pcp Unknown Primary [...] patient's age to complete this topic Insurance [facility] Care Teams Chocolate Finisher Operator Relationship Specialty Start Date End Date Physician, Pcp Unknown PCP - General 08/05/24
--- OUTSIDE RECORDS SUMMARY | 2025-08-24 10:35 | XMS_ITS | Clinical Summary ---
Author Organization [facility] Address [address] [place] [address] Phone Care Team Providers Care Custodial Laborer Name Role Phone Dmitriy Aguilar DO Primary Care Provider [phone] Allergies Active Allergy Reactions Criticality Noted Date [...] Visit [facility] [address] [facility] [address] Roman Leal MD [address] [facility] [address] [place] [phone] Health Maintenance Due Date Last Done Comments [...] age to complete this topic Insurance [facility] Care Teams Custodial Laborer Relationship Specialty Start Date End Date Dmitriy Aguilar DO [address] [place] [address] [phone] PCP - General Family Medicine 08/17/24
[2025-08-24 10:42] LABS: Anion Gap 13 (12-20); Blood Urea Nitrogen 22 mg/dL (9-16); Calcium 9.9 mg/dL (8.4-10.2); Carbon Dioxide 27 mmol/L (22-29); Chloride 104 mmol/L (96-108); Estimated Glomerular Filt Rate 56; Potassium 4.4 mmol/L (3.3-5.1); Sodium 140 mmol/L (135-145)
== END 2025-08-24 09:21 | disposition home or self-care (01) ==
LOC: HO.LAB 09:20
PROVIDERS: Visit Provider Internal Medicine Cardiovascular Disease
DX: R06.09 Other forms of dyspnea (principal)
CPT/HCPCS: 36415; 80048; 85027; 85610

== ENCOUNTER → 2025-08-31 23:59 | Outpatient (BNV) | payer MEDICARE, SELFPAY | PROVIDERS: Visit Provider Internal Medicine Cardiovascular Disease | DX: I25.118 Atherosclerotic heart disease of native coronary artery with other forms of angina pectoris (principal) | CPT/HCPCS: 92920; 92972; 93460; 99152 ==

== ENCOUNTER 2025-09-20 14:17 | Outpatient (AMB) | payer MEDICARE, SELFPAY ==
--- OUTSIDE RECORDS SUMMARY | 2025-01-29 06:15 | XMS_ITS ---
Author Organization [facility] Address [address] [place] [address] Care Team Providers Care Flooring Installer Name Role Phone Rach Dubois Primary Care Provider Unavailabl Jose D Gomez Unavailable [phone] Dmitriy Aguilar Unavailable Unavailable REASON FOR VISIT Dr Barnes Encounters Encounter Location Date Provider Diagnosis [address] [id number] 01/29/2025 Jose D Mckeon Plan Of Treatment Next Appt Details Provider Name:Jose D Mckeon , 10/15/2025 12:30:00 PM, [address] [place] [address], [id number], Progress Notes * Junior OLIVEROSDOB:1945 (80 yo M)Acc No.[id number]:01/29/2025 Progress Note Patient: Junior CARR Provider: Riddhi Mckeon DPM :1945 A ge:79 Y S ex:Male Date:01/29/2025 Address:[address] [place] [address] [place], [id number] Pcp:Rach Dubois Subjective: * Chief Complaints: * [address] Barnes[address] * Medical History: Objective: * Vitals: Assessment: Plan: * Treatment: * Images: * The named appointment provid er may or may not be the originator of this progress note, and it is not deemed complete until electronically signed by the appointment provider. Sign off status: Pending * Provider: Riddhi Mckeon DPM Date: 0 01/29/2025 Generated for Rocío ramírez/Karan/Jillian on: 11/21/2024 05:46 PM EST
--- OUTSIDE RECORDS SUMMARY | 2025-02-16 08:30 | XMS_ITS ---
Author Organization [facility] [place] Address [address] [place] [address] Care Team Providers Care Veterinary Physiologist Name Role Phone Rach Dubois Primary Care Provider Unavailabl Jose D Gomez Unavailable [phone] Dmitriy Aguilar Unavailable Unavailable Encounters Encounter Location Date Provider Diagnosis [address] [address] 02/16/2025 Jose D Mckeon Plan Of Treatment Next Appt Details Provider Name:Jose D Mckeon , 10/15/2025 12:30:00 PM, [address] [place] [address], [phone], Progress Notes * Junior OLIVEROSDOB:1945 (80 yo M)Acc No.[id number]:02/16/2025 Progress Note Patient: Junior CARR Provider: Riddhi Mckeon DPM :1945 A ge:80 Y S ex:Male Date:02/16/2025 Address:[address] [place] [address] [place], [id number] Pcp:Rach Dubois Subjective: * Chief Complaints: * [...] 02/16/2025 Generated for Rocío ramírez/Karan/Jillian on: 1 11/21/2024 05:45 PM EST
[2025-09-20 14:22] VITALS: BP 138/62; PULSE 72; BMI 32.2
--- NOTE | 2025-09-20 14:22 | MHC.OFFVIS ---
Vital Signs 09/20/25 14:22 Height 5 ft 7 in Weight 205 lb 14.588 oz BMI 32.2 BP 138/62 Blood Pressure Location Lt brachial Position Sitting Pulse 72 Pulse Source Monitor Intake Visit Reasons: 4 MTH f/up Radiocommunications Technician Required: No Accompanied by: Self / Same As Patient Allergies cefepime Allergy (Intermediate, Verified 09/20/25 14:27) RASH/BLISTERS, rash metronidazole (From FLAGYL) Allergy (Intermediate, Verified 09/20/25 14:27) Rash Medication List - Last Reconciled 09/20/25 by Avni Ceballos NP albuterol sulfate 2.5 mg (3 mL) inhalation Q4-6H PRN 30 days albuterol sulfate 90 mcg/actuation 2 puffs inhalation Q4-6H PRN amiodarone 200 mg PO DAILY amlodipine 5 mg PO DAILY apixaban (Eliquis) 5 mg PO BID calcium carbonate (Tums) 200 mg PO TID PRN 30 days chlorthalidone 25 mg PO DAILY clopidogrel 75 mg PO DAILY docusate sodium (Colace) 100 mg PO BID famotidine 20 mg PO BEDTIME fluticasone propionate 50 mcg/actuation 2 sprays intranasal DAILY PRN 90 days lisinopril 2.5 mg PO DAILY loratadine (Claritin) 10 mg PO DAILY PRN metformin 500 mg PO DAILY montelukast 10 mg PO DAILY rosuvastatin 5 mg PO DAILY sildenafil mg PO PRN tamsulosin 0.4 mg PO DAILY trazodone 50 mg PO BEDTIME Wixela Inhub 250-50 mcg/dose (fluticasone propion-salmeterol) 1 inh inhalation Q12H NS HPI Comments Details: This is a 80-year-old male patient coming in for a follow-up visit status post cardiac catheterization. Patient with a history of hypertension, hyperlipidemia, diabetes, AFib, obesity, and sleep apnea. Most recently, patient has been reporting exertional shortness of breath for which patient underwent an echo showing akinetic inferoseptal wall and therefore underwent a coronary CTA that was abnormal warranting cardiac catheterization which patient underwent with Dr. Olivares on 08/31/2025. This showed mid RCA severe stenosis and underwent balloon angioplasty. Today, patient is reporting shortness of breath with exertion however does note a significant improvement. Patient is otherwise denying any exertional chest discomfort, palpitations, dizziness, orthopnea, PND, leg edema, presyncope or syncope. Patient is reporting compliance with all his medications. [facility] Medical History Amiodarone pulmonary toxicity Lobulation of kidney Cough COPD exacerbation Acute rhinosinusitis Obesity (BMI 30-39.9) Pulmonary nodule ABBY on CPAP COPD (chronic obstructive pulmonary disease) Allergic rhinitis Pneumonia Surgical History Hx of cardiac cath History of knee replacement (~08/2020) S/P skin biopsy H/O tympanostomy H/O colonoscopy History of parathyroidectomy History of esophagogastroduodenoscopy (EGD) Family History Father NIDDY (non-insulin dependent diabetes mellitus in young) Prostate cancer HTN (hypertension), benign Mother Bone cancer Breast cancer Maternal Grandmother CAD (coronary artery disease) Brother Rectal cancer Social History Alcohol intake: former Patient Tobacco Use Status: Former Tobacco user Years Smoked: 20 +/- Review of Systems Const Denies daytime sleepiness, Denies difficulty sleeping, Denies snoring, Denies stops breathing during sleep and Denies weakness Card Denies chest pain, Denies rapid heart rate, Denies irregular heart rhythm, Denies claudication, Denies leg edema, Denies lightheadedness, Denies palpitations, Denies dyspnea, Reports dyspnea on exertion, Denies orthopnea, Denies paroxysmal nocturnal dyspnea and Denies slow heart rate Resp Denies cough, Denies dyspnea, Reports dyspnea on exertion and Denies snoring GI Reports no additional complaints, Denies hematochezia, Denies change in stool character and Denies dyspepsia Musc Denies abnormal gait, Denies muscle weakness and Denies numbness Neuro Denies abnormal gait, Denies numbness and Denies weakness Endo Denies palpitations Physical Exam Vital Signs: Last Vital Signs Pulse 72 09/20/25 14:22 BP 138/62 09/20/25 14:22 BMI result Body Mass Index 32.2 Const General: cooperative, healthy appearing, comfortable and no acute distress Orientation/consciousness: patient oriented x3 HEENT Head: Yes normal to inspection Neck Neck: Yes normal visual inspection, Yes trachea midline and Yes supple Chest Chest palpation & inspection: normal inspection of the chest Resp Effort & Inspection: normal respiratory effort Auscultation: clear to auscultation bilaterally, no crackles, no rales, no rhonchi and no wheezes Cardio Jugular venous distension: no JVD Palpation: normal PMI Rate: regular rate Rhythm: regular rhythm Heart sounds: S1 normal heart sound present, S2 normal heart sound present, no click, no gallops, no murmurs and no rubs Peripheral pulses: Peripheral pulses 2+ throughout GI Inspection: Yes normal to inspection Palpation (GI): Soft to palpation Auscultation: normal bowel sounds Skin General skin exam: no rashes or lesions noted Neuro General: patient oriented x3 Extrem General: Yes normal to inspection, No no pedal edema and No calf tenderness Psych Appearance: grossly normal Mental Status: mental status grossly normal Speech and movement: Normal speech and movement present Office Procedures EKG Details: EKG today showed sinus rhythm with a first-degree AV block, rate 72 beats per minute, PACs, right bundle branch block, nonspecific ST[place], [place]. [address]-Rapxkokekcnbnyiaz, Complete Assessment & Plan Assessment & Plan (1) Status post cardiac catheterization: Code(s): Z98.890 - Other specified postprocedural states Plan: Given his ongoing exertional shortness of breath, patient underwent an echocardiogram that showed akinetic inferoseptal wall and therefore underwent a coronary CTA showing moderate coronary artery disease. Patient then underwent a cardiac catheterization on 09-[address] Olivares that revealed a lesion in the mid RCA with 99% stenosis. Given heavy calcifications and a calcific nodule in the lesion, it was noted that patient may need intravascular lithotripsy unfortunately was unsuccessful due to difficulty in advancing. Therefore, patient underwent a successful balloon angioplasty of the mid RCA. Plan was to re-attempt with groin access in case of symptom improvement with the angioplasty. Given that patient's shortness of breath is improved even though not completely resolved, patient would like to move forward with the plan to undergo cardiac catheterization from femoral approach. The procedure along with its indications, risks and benefits were discussed in detail with the patient. Patient verbalizes understanding. Right wrist catheterization site is well healed. Continue Plavix therapy. No reported signs of bleeding. Continue statin therapy with an LDL goal less than 70. (2) Coronary artery disease: Code(s): I25.10 - Atherosclerotic heart disease of curyung coronary artery without angina pectoris Category: Medical Plan: As above. (3) Atrial fibrillation: Code(s): I48.91 - Unspecified atrial fibrillation Category: Medical Qualifiers: Atrial fibrillation type: paroxysmal Qualified Code(s): I48.0 - Paroxysmal atrial fibrillation Plan: EKG today shows sinus rhythm. Continue Eliquis for full anticoagulation. Continue amiodarone for rhythm control. Recent kidney function is stable. (4) HTN (hypertension), benign: Code(s): I10 - Essential (primary) hypertension Category: Medical Plan: Blood pressure today is well-controlled. Continue current regimen with a blood pressure goal less than 130/80. Advised on low-salt diet. Advised on heart healthy diet, regular exercise, med compliance, and aggressive management of vascular risk factors. Follow up after cardiac catheterization. In the interim, patient will call the office with any concerns or change in symptoms. This note was generated using voice recognition software. While every effort has been made to ensure accuracy and proper beader tender, there may be occasional errors that could affect the content or meaning of the described symptoms. Orders: Orders Complete Blood Count no Diff Today I25.10 - Atherosclerotic heart disease of curyung coronary artery without angina pectoris Prothrombin Time INR Today I25.10 - Atherosclerotic heart disease of curyung coronary artery without angina pectoris AMB EKG-In Office Today I48.0 - Paroxysmal atrial fibrillation Cardiac Cath LT w PCI Today I25.10 - Atherosclerotic heart disease of curyung coronary artery without angina pectoris Basic Metabolic Panel Today I25.10 - Atherosclerotic heart disease of curyung coronary artery without angina pectoris Coding Level of Care Code Est Pt Level 4 (86253) Add On Problem Visit Only Diagnoses Status post cardiac catheterization Z98.890 Coronary artery disease I25.10 Paroxysmal atrial fibrillation I48.0 Atrial fibrillation type: paroxysmal HTN (hypertension), benign I10 CPT Codes EKG - CPT: 80930-Uemjifxgxhkgywzni, Complete ([id number]) Time Spent (min) 34 Comment Time spent in reviewing the chart, test results, assessment, counseling and documentation.
--- OUTSIDE RECORDS SUMMARY | 2025-09-20 17:45 | XMS_ITS | Clinical Summary ---
Author Organization [address] [facility] Address [address] [place] [address] Phone Care Team Providers Care Office Administrative Assistant Name Role Phone Physician, Pcp Unknown Primary [...] patient's age to complete this topic Insurance [facility] Care Teams Office Administrative Assistant Relationship Specialty Start Date End Date Physician, Pcp Unknown PCP - General 08/05/24
--- OUTSIDE RECORDS SUMMARY | 2025-09-20 17:46 | XMS_ITS | Patient Health Record ---
Author Organization [facility] Address [address] [place] [address] Care Team Providers Care Professional Development Manager Name Role Phone Esteban Luu Jr [phone] Reason For Referral No Information Plan Of Treatment No Information
--- OUTSIDE RECORDS SUMMARY | 2025-09-20 17:46 | XMS_ITS | Encounter Summary ---
Author Organization [employer] Address [address] [place] [address] Care Team Providers Care Shipping Agent Name Role Phone Physician, Pcp Unknown Primary Care Provider Brianna vailable Encounter Details Date Type Department Care Team (Late st Contact Info) Description 08/05/2024 Lab Requisition [facility] [address] [facility] [place] [address] Chris Cunningham III, MD [address] [place] [address] [place] [id number] Basal cell carcinoma of skin, unspecified Social [...] for residual neoplasm 08/06/2024 12:[address] [facility] at 1259 EST Gross Description A. Back, Lower, : Labeled [...] The contiguous cut surfaces are focally fibrotic. Assembler Molded Frames cruciate sections are submitted in four cassettes. 1-medial and lateral cruciate tips, with green ink at medial tip, two pieces 2-4 center of specimen, blocked out (2-3: two pieces each, 4-one piece) 08/06/2024 12:59 PM EST [facility] Disclaimer Unless otherwise specified, all tissue is 10% NB formalin fixed and paraffin embedded. 08/06/2024 12:59 PM EST [facility] Tissue Lower back structure / Unknown 08/04/2024 08/05/2024 9:41 AM EST Chris Cunningham III, MD LAB PATHOLOGY ORDERABLES Fi nal Result [facility] [address] [place] [address], documented in this encounter Visit Diagnoses Diagnosis Basal cell carcinoma of skin, unspecified documented in this encounter Care Teams Shipping Agent Relationship Specialty Start Date End Date Physician, Pcp Unknown PCP - General 08/05/24 documented as of this encounter
--- OUTSIDE RECORDS SUMMARY | 2025-09-20 17:46 | XMS_ITS | Patient Health Record ---
Author Organization [facility] Address [address] [facility] [place] [address] Care Team Providers Care Test Engineer Nuclear Equipment Name Role Phone Silvino Rach Primary Care Provider Jose D Ceron Unavailable [phone] Dmitriy Aguilar Unavailable Unavailable Allergies Allergen (clinical [...] Problem Acquired hammer toe of right foot (021744659793 9105) Other hammer toe(s) (acquired), right foot (M20.41) Active confirmed Response to treatment, Improvement Problem Type 2 diabetes mellitus with peripheral angiopathy (782232478) Type 2 diabetes mellitus with diabetic peripheral angiopathy without gangrene (E11.51) Active confirmed Problem Acquired hammer toe of left foot (059700879936 9103) Other hammer toe(s) (acquired), left foot (M20.42) Active confirmed Response to treatment, Improvement Vital Signs Blood pressure diastolic 60 mm Hg 07/23/2025 Height 5 ft 7.5 in in 07/23/2025 Blood pressure systolic 130 mm Hg 07/23/2025 Weight 207 lbs 07/23/2025 BMI 31.94 kg/m2 07/23/2025 Procedures Procedure Date Ordered Date Performed Result Body Sit e 55374-NWQNDPA NAIL, 6 OR MORE 10/27/2024 N/A 81079-JUJU SKIN LESIONS, OVER 4 10/27/2024 N/A 93253-VFGTKKA NAIL, 6 OR MORE 01/19/2025 N/A 57149-LLCG SKIN LESIONS, OVER 4 01/19/2025 N/A 66355-CEVJJJK NAIL, 6 OR MORE 04/23/2025 N/A 38337-GIFI SKIN LESIONS, OVER 4 04/23/2025 N/A 45130-LWSWCNA NAIL, 6 OR MORE 07/23/2025 N/A 61293-KYNW SKIN LESIONS, OVER 4 07/23/2025 N/A Encounters Encounter Location Date Provider Diagnosis [address] [address] 10/27/2024 Jose D Mckeon Type 2 diabetes mellitus with diabetic peripheral angiopathy without gangrene E11.51 ; Tinea unguium B35.1 ; Pain in right toe(s) M79.674 ; Pain in left toe(s) M79.675 and Xerosis of skin L85.[address] [address] 01/19/2025 Jose D Mckeon Type 2 diabetes mellitus with diabetic peripheral angiopathy without gangrene E11.51 ; Tinea unguium B35.1 ; Pain in right toe(s) M79.674 ; Pain in left toe(s) M79.675 ; Other hammer toe(s) (acquired), right foot M20.41 and Other hammer toe(s) (acquired), left foot M20.[address] [address] 04/23/2025 Jose D Mckeon Type 2 diabetes mellitus with diabetic peripheral angiopathy without gangrene E11.51 ; Tinea unguium B35.1 ; Pain in right toe(s) M79.674 and Pain in left toe(s) M79.[address] [address] 07/23/2025 Jose D Mckeon Type 2 diabetes mellitus with diabetic peripheral angiopathy without gangrene E11.51 ; Tinea unguium B35.1 ; Pain in right toe(s) M79.674 ; Pain in left toe(s) M79.675 ; Other hammer toe(s) (acquired), right foot M20.41 and Other hammer toe(s) (acquired), left foot M20.[address] [address] 01/13/2025 Jose D Mckeon Assessments Encounter Date [...] Treatment Pending Test Test Name Order Date 76332-ZIXJVLL NAIL, 6 OR MORE 08/06/2014 27882-YUJPGGO NAIL, 6 OR MORE 11/09/2014 67745-ZETVPEM NAIL, 6 OR MORE 02/08/2015 77882-CPNYYHJ NAIL, 6 OR MORE 05/13/2015 94613-ZZAQDTS NAIL, 6 OR MORE 08/16/2015 01967-ARLLSYE NAIL, 6 OR MORE 12/02/2015 56563-WSUYDJS NAIL, 6 OR MORE 03/02/2016 54585-KZWMYQD NAIL, 6 OR MORE 06/01/2016 02016-RPBLFQN NAIL, 6 OR MORE 08/10/2016 30724-HKRQPAC NAIL, 6 OR MORE 10/19/2016 11456-TKPEQER NAIL, 6 OR MORE 12/28/2016 89750-SDOESMA NAIL, 6 OR MORE 03/08/2017 40656-BSCUJOQ NAIL, 6 OR MORE 05/14/2017 61467-XLKFEAM NAIL, 6 OR MORE 08/02/2017 44757-QMUJEIJ NAIL, 6 OR MORE 10/18/2017 63905-SNORAIY NAIL, 6 OR MORE 01/03/2018 48707-MYAGMMZ NAIL, 6 OR MORE 03/14/2018 18408-DOECWHF NAIL, 6 OR MORE 05/16/2018 09666-NIXHSHL NAIL, 6 OR MORE 07/25/2018 22423-KLYVYQR NAIL, 6 OR MORE 10/14/2018 52275-OOJOCFZ NAIL, 6 OR MORE 01/09/2019 54044-KZFMBJD NAIL, 6 OR MORE 03/17/2019 30641-KSMCYAF NAIL, 6 OR MORE 06/26/2019 03983-ZSVFUTL NAIL, 6 OR MORE 09/04/2019 74480-FFBCLHX NAIL, 6 OR MORE 11/17/2019 05582-CHCZPOC NAIL, 6 OR MORE 01/29/2020 17624-ZZDOHSO NAIL, 6 OR MORE 05/06/2020 91153-LKWEWKS NAIL, 6 OR MORE 12/30/2020 98617-JARBYXI NAIL, 6 OR MORE 03/14/2021 79415-PJOSUKW NAIL, 6 OR MORE 06/13/2021 85448-HLKJGDB NAIL, 6 OR MORE 09/01/2021 44903-VFZHNDR NAIL, 6 OR MORE 11/21/2021 45588-YLHZWVT NAIL, 6 OR MORE 10/21/2020 42228-XYOMQXA NAIL, 6 OR MORE 02/02/2022 66776-VDCJCBN NAIL, 6 OR MORE 04/13/2022 44294-OSVNHUZ NAIL, 6 OR MORE 06/26/2022 75085-MVIAVWG NAIL, 6 OR MORE 09/17/2022 76996-SBIHDRV NAIL, 6 OR MORE 11/27/2022 70477-DSMZOXS NAIL, 6 OR MORE 02/26/2023 29278-AMZUKBR NAIL, 6 OR MORE 05/14/2023 73759-RBQLLVI NAIL, 6 OR MORE 07/26/2023 97471-OMUNGOH NAIL, 6 OR MORE 10/08/2023 14870-SENHHMT NAIL, 6 OR MORE 12/31/2023 60588-TVYMZEF NAIL, 6 OR MORE 03/10/2024 91169-NBPAGZD NAIL, 6 OR MORE 05/22/2024 40814-TGXSJCF NAIL, 6 OR MORE 07/24/2024 70216-LVTTTQN NAIL, 6 OR MORE 10/27/2024 06976-TVRTEGX NAIL, 6 OR MORE 01/19/2025 90625-RQPJICX NAIL, 6 OR MORE 04/23/2025 67499-MJMQOGG NAIL, 6 OR MORE 07/23/2025 73227-Ghytghjy Plate 07/26/2023 64765-Fcdbrmcj Plate 06/26/2022 59351-Uxctbdlg Plate 04/13/2022 58945-Tlafxgeh Plate 10/21/2020 66102-Aksfpeyy Plate 11/21/2021 31991-Fkzfwnhd Plate 05/06/2020 44555-Ezslliyi Plate 06/26/2019 03400-Ichgadmy Plate 08/02/2017 42491-Lfxanumx Plate 10/19/2016 98205-Mlzzuawg Plate 08/16/2015 70515-Xwlvfgvz Plate 05/13/2015 75847-Aainlbum Plate 02/08/2015 74650-Prrjlaco Plate 11/09/2014 86808-Ngtayfqh Plate 08/06/2014 98879-Mefjglkb Plate 05/04/2014 46185-Ljgriehp Plate Each Additional 01/2014 71206-Ubmwauhu Plate Each Additional 03/2014 89989-Xjnzwwls Plate Each Additional 06/2015 37468-Icilxzte Plate Each Additional 08/2015 56563-Tjtipcxz Plate Each Additional 05527-Wmqcpcyy Plate Each Additional 06523 I&D ABSCESS- SIMPLE,SINGLE 018 91916-CUZQ SKIN LESIONS, OVER 4 09/17/20 22 13510-QTSY SKIN LESIONS, OVER 4 02/27/20 40863-GIKO SKIN LESIONS, OVER 4 11/27/19 99064-TRHA SKIN LESIONS, OVER 4 10/27/19 53171-CMMQ SKIN LESIONS, OVER 4 07/24/20 24 44627-SIDN SKIN LESIONS, OVER 4 05/22/20 24 79178-NPJN SKIN LESIONS, OVER 4 03/10/20 31385-DGIN SKIN LESIONS, OVER 4 12/31/19 24416-JJLD SKIN LESIONS, OVER 4 10/08/19 63459-UOKP SKIN LESIONS, OVER 4 07/26/20 23 90298-UYKD SKIN LESIONS, OVER 4 05/14/20 91683-UEQI SKIN LESIONS, OVER 4 07/23/20 59828-QYXA SKIN LESIONS, OVER 4 04/23/20 08037-UION SKIN LESIONS, OVER 4 01/20/20 Next Appt Details Provider Name:Jose D Mckeon , 10/15/2025 12:30:00 PM, [address] [facility], [place], [address], Insurance Providers Payer Name Payer Address Payer Phone Subscriber Number Group Number Insured Name Patient Relationship to Insured Coverage Start Date Coverage End Date [employer] [address] [place] [address] [id number] Junior Reyes Self - patient is the [...] CT Scan right kidney- small mass found [facility] Biopsy 02/2017 [facility], cough 09/2014
--- OUTSIDE RECORDS SUMMARY | 2025-09-20 17:46 | XMS_ITS | Clinical Summary ---
Author Organization [facility] Address [address] [place] [address] Phone Care Team Providers Care Motor Coach Chauffeur Name Role Phone Dmitriy Aguilar DO Primary Care Provider [phone] Allergies Active Allergy Reactions Criticality Noted Date [...] Active Problems Problem Noted Date Diagnosed Date Stage 3a chronic kidney disease 09/09/2025 Chronic kidney disease, stage 2 (mild) 2 Allergic rhinitis 11/01/2021 Atrial fibrillation 11/01/2021 Benign prostatic hyperplasia 11/01/2021 Blepharitis of right lower eyelid 11/01/2021 Cardiac arrhythmia 11/01/2021 Diabetes mellitus 11/01/2021 Hyperparathyroidism 11/01/2021 Gastroesophageal reflux disease 11/01/2021 H/O: male genital disorder 11/01/2021 Hypertensive disorder 11/01/2021 Seasonal allergy 11/01/2021 Increased frequency of urination 11/01/2021 Renal mass 05/04/2021 Abdominal aortic aneurysm 12/05/2020 Benign essential hypertension 12/02/2020 Chronic kidney disease stage 2 12/02/2020 Hypertensive renal disease 12/02/2020 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 Encounters Date Type Department Care Team Description 09/09/2025 2:30 PM EST Office Visit [facility] [address] [place], [place] [address] Roman Leal MD Hypertensive renal disease (Primary Dx); Stage 3a chronic kidney disease (HCC); Renal mass from Last 3 Months Immunizations Immunization Administration Dates Next Due Influenza (IM) Preservative Free 10/15/2021,10/0 09/2019 Influenza, Unspecified 06/21/2023,08/02/2022, Pfizer SARS-COV-2 10/19/2022,10/01/2021,12/27/19,12/05/2020 Pneumococcal Conjugate 05/11/2022 Pneumococcal Polysaccharide 03/25/2014 Td, [...] Sign Reading Time Taken Comments Blood Pressure 134/90 09/09/2025 2:36 PM EST Pulse 78 09/09/2025 2:36 PM EST Temperature - - Respiratory Rate - - Oxygen Saturation 98% 09/09/2025 2:36 PM EST Inhaled Oxygen Concentration - - Weight 94.2 kg (207 lb 9.6 oz) 09/09/2025 2:36 P M EST Height 170.2 cm (5' 7 ) 06/23/2019 12:00 PM EDT Body Mass Index 32.51 06/23/2019 12:00 PM EDT Plan of Treatment Upcoming Encounters Date Type Department Care Team (Late st Contact Info) Description 06/23/2026 1:15 PM EDT Office Visit [facility] [address] [place], [place] [address] Roman Leal MD [address] [facility] [address] [place] [address] Health Maintenance Due Date Last Done Comments Diabetes: Ophthalmology Exam 10/31/2021 Diabetes: Pedal Pulse Checked 10/31/2021 Diabetes: Sensory Foot Exam 10/31/2021 Diabetes: Visual Foot Exam 10/31/2021 Pneumococcal Vaccine: 50+ Years (2 of 2 - PCV) 05/11/2023 05/11/2022, 03/25/2014 Influenza Vaccine (#1) 2025 , 08/02/2022, 10/24/2021, Additional history exists Diabetes: Hemoglobin A1C 08/06/2025 05/06/2025 Pneumococcal Vaccine: Peds (0 to 5 Years) and At-Risk Patients (6 to 49 Years) Discontinued 05/11/2022, 03/25/2014 Hepatitis B Vaccine Aged Out No longe r eligible based on patient's age to complete this topic Procedures Procedure Name Priority Date/Time Associated Diagnosis Comments EXT RESULT ENTRY Routine 05/06/2025 from Last 3 Months or Most Recently Relevant to Health Maintenance Results * (ABNORMAL) EXT RESULT ENTRY (05/06/2025) WBC 12.2(A) 3.3 - 10.0 10*3/ML Red Blood Cell Count 4.51 Hemoglobin 14.2 13.5 - 17.5 Hematocrit 42.5 41.0 - 53.0 Platelets 384 150 - 399 10*3/UL MCV 94.0 82.0 - 108.0 Neutrophils Absolute 70.00(A) 1.30 - 8.30 10*3/UL Lymphocytes Absolute 19.00(A) 1.40 - 2.90 10*3/UL Monocytes Absolute 8.00(A) 0.20 - 0.80 10*3/UL Eosinophils Absolute 0.30 0.20 - 0.70 10*3/UL Sodium 137 137 - 147 Potassium 4.8 3.4 - 5.5 Chloride 100.0 99.0 - 108.0 Carbon Dioxide 21 mmol/L Anion Gap 16.0 <=30 MMOL/L Glucose 86 60 - 200 BUN 20 4 - 21 mg/dL Creatinine 1.23 0.60 - 1.30 mg/dL Total Protein 7.9 6.4 - 8.2 G/DL BUN/Creatinine Ratio 16 Albumin 4.1 3.5 - 5.0 g/dL eGFR Non-Afr Nauruan 60 Total Bilirubin 0.50 MG/DL ALT (SGPT) 12 U/L AST (SGOT) 12 U/L Alkaline Phosphatase 111 U/L Hemoglobin A1C 5.5 4.0 - 6.0 05/06/2025 [facility] Provider LAB BLOOD ORDERABLES Brandy l Result from Last 3 Months or Most Recently Relevant to Health Maintenance Insurance [facility] Care Teams Motor Coach Chauffeur Relationship Specialty Start Date End Date Dmitriy Aguilar DO [address] [place] [id number] PCP - General Family Medicine 08/17/24
== END 2025-09-20 15:03 | disposition home or self-care (01) ==
LOC: HO.HCS 14:18
PROVIDERS: PCP Family Medicine
DX: Z98.890 Other specified postprocedural states (principal); I25.10 Atherosclerotic heart disease of native coronary artery without angina pectoris; I48.0 Paroxysmal atrial fibrillation; I10 Essential (primary) hypertension
CPT/HCPCS: 93010; 99214; G2211

== ENCOUNTER → 2025-09-20 14:17 | Outpatient (BNVA) | payer MEDICARE, SELFPAY | PROVIDERS: PCP Family Medicine | DX: R06.02 Shortness of breath (principal); I25.10 Atherosclerotic heart disease of native coronary artery without angina pectoris; I48.91 Unspecified atrial fibrillation; I10 Essential (primary) hypertension; Z98.890 Other specified postprocedural states | CPT/HCPCS: 93005; 99212 ==